=== PATIENT | male | born 1970 | race Caucasian/White ===

== ENCOUNTER → 2024-02-22 | Outpatient (CLI) | payer MEDICARE, MEDICAID, SELFPAY ==
[2024-02-22 14:11] LABS: Basophils % (Auto) 1 % (0-2.5); Eosinophils # (Auto) 1.1 Thou/mm3 (0.0-0.5); Eosinophils % (Auto) 23 % (0-10); Hematocrit 33.5 % (41.0-53.0); Hemoglobin 10.7 g/dL (13.5-16.0); Immature Granulocytes % (Auto) 0 % (0-0); Immature Granulocytes Auto 0.01 Thou/mm3 (0.00-0.00); Lymphocytes % (Auto) 20 % (10-50); Mean Corpuscular HGB Conc 31.9 g/dl (31.0-37.0); Mean Corpuscular Hemoglobin 30.5 pg (25.0-35.0); Mean Corpuscular Volume 95 fL (80-100); Monocytes # (Auto) 0.3 Thou/mm3 (0.0-0.8); Monocytes % (Auto) 6 % (0-12); Neutrophils # (Auto) 2.5 Thou/mm3 (1.8-7.7); Neutrophils % (Auto) 51 % (37-80); Nucleated Red Blood Cell % 0 /100 WBC (0); Platelet Count 91 Thou/mm3 (140-440); RDW Standard Deviation 49.6 fL (35.1-43.9); Red Blood Count 3.51 Miln/mm3 (4.50-5.90); White Blood Count 4.8 Thou/mm3 (3.8-10.6)
[2024-02-22 14:27] LABS: Partial Thromboplastin Time 27.7 Seconds (22.0-36.0); Prothrombin Time 10.8 Seconds (9.0-12.2)
[2024-02-22 14:28] LABS: Blood Urea Nitrogen 9 mg/dL (9-23); Creatinine (Component) 1.9 mg/dL (0.6-1.3); eGFR 41 See Note
--- NOTE | 2024-02-22 15:26 | PC.NURSE ---
Spoke to Dr. Sevilla in regards to platelets being in the 90's. Per Dr. Sevilla patients platelets need to be above 150's. Patient will need to be rescheduled. Spoke to scheduling and said they would let the patient know.
== END | disposition home or self-care (01) ==
LOC: SLAB 02-24 07:17
PROVIDERS: Radiology Diagnostic Radiology; PCP Family Medicine; Referring Provider Internal Medicine Hematology & Oncology; Visit Provider Internal Medicine Hematology & Oncology
DX: D41.02 Neoplasm of uncertain behavior of left kidney (principal); C78.00 Secondary malignant neoplasm of unspecified lung
CPT/HCPCS: 36415; 82565; 84520; 85025; 85610; 85730

== ENCOUNTER → 2024-04-07 | Outpatient (CLI) | payer MEDICARE, MEDICAID, SELFPAY ==
[2024-04-07 16:36] LABS: Basophils % (Auto) 0 % (0-2.5); Eosinophils % (Auto) 0 % (0-10); Hematocrit 37.5 % (41.0-53.0); Hemoglobin 12.3 g/dL (13.5-16.0); Immature Granulocytes % (Auto) 0 % (0-0); Immature Granulocytes Auto 0.03 Thou/mm3 (0.00-0.00); Lymphocytes # (Auto) 0.6 Thou/mm3 (1.0-4.8); Lymphocytes % (Auto) 5 % (10-50); Mean Corpuscular HGB Conc 32.8 g/dl (31.0-37.0); Mean Corpuscular Hemoglobin 30.1 pg (25.0-35.0); Mean Corpuscular Volume 92 fL (80-100); Monocytes # (Auto) 0.1 Thou/mm3 (0.0-0.8); Monocytes % (Auto) 1 % (0-12); Neutrophils # (Auto) 10.9 Thou/mm3 (1.8-7.7); Neutrophils % (Auto) 93 % (37-80); Nucleated Red Blood Cell % 0 /100 WBC (0); Platelet Count 152 Thou/mm3 (140-440); RDW Standard Deviation 53.6 fL (35.1-43.9); Red Blood Count 4.09 Miln/mm3 (4.50-5.90); White Blood Count 11.7 Thou/mm3 (3.8-10.6)
== END | disposition home or self-care (01) ==
PROVIDERS: PCP Family Medicine; Referring Provider Family Medicine; Visit Provider Family Medicine
DX: Z01.89 Encounter for other specified special examinations (principal)
CPT/HCPCS: 36415; 85025

== ENCOUNTER → 2024-05-29 | Outpatient (CLI) | payer MEDICARE, MEDICAID, SELFPAY ==
--- NOTE | 2024-05-29 08:30 | XR_ITS ---
Examination: CT chest, without intravenous contrast. CT abdomen, without intravenous contrast. CT pelvis, without intravenous contrast. 2-D sagittal and coronal reconstructions. 3-D reconstructions. Date and time of exam:May 29, 2024 [address] chest June 19, 2023 INDICATIONS: Diagnosis secondary malignant neoplasm of the unspecified lung, mediastinal lymphadenopathy, diagnosis skin cancer, hypermetabolic anterior solid left renal mass 5.[address] scan December 14, 2023 CTDI vol (mgy) 6.89 DLP (MGycm)543 Technique: Multiple CT images, 3.0 mm slice thickness, obtained chest, abdomen, pelvis, with the high-resolution 64 slice scanner.. Sagittal and coronal 2-D reconstructions are obtained. 3-D reconstructions Low dose protocols were performed. One or more of the following dose reduction techniques were used; automated exposure control, adjustment of the mA and/or KV according to patient size, use of iterative reconstruction technique. Findings: Again noted and stable mediastinal lymphadenopathy including tracheobronchial and aortopulmonary window 12 mm pulmonary nodule left upper lobe image 96 12 mm pulmonary nodule right upper lobe image 135 4 mm pulmonary nodule right lower lobe image 180 Loculated left pleural fluid No visualized liver or splenic lesion Absent gallbladder No pancreatic mass Anterior solid left renal mass 5.5 cm 4 mm right renal calculus Status post left nephrectomy with calculi in the lower pole left kidney Aorta normal size Numerous periaortic pericaval lymph nodes, the largest lymph node in the left lateral periaortic region 11 mm No bowel obstruction No pericecal inflammatory change Urinary bladder wall shows marked thickening up to 20 mm Prominent osteopenia Enlarged lymph node medial anterior left groin 21 mm IMPRESSION: Pulmonary nodules noncalcified consistent with pulmonary nodular metastatic disease Again noted mediastinal lymphadenopathy Loculated mild to moderate left pleural fluid 5.5 cm anterior solid left renal mass Pericaval periaortic lymphadenopathy 21 mm anterior left groin lymph node
== END | disposition home or self-care (01) ==
LOC: SIRX 08:07
PROVIDERS: PCP Family Medicine; Referring Provider Internal Medicine Hematology & Oncology; Visit Provider Internal Medicine Hematology & Oncology
DX: R91.8 Other nonspecific abnormal finding of lung field (principal); R59.0 Localized enlarged lymph nodes; N28.89 Other specified disorders of kidney and ureter; Z53.8 Procedure and treatment not carried out for other reasons
CPT/HCPCS: 71250; 74176

== ENCOUNTER 2024-06-28 07:44 | Outpatient (CLI) | payer MEDICARE, MEDICAID, SELFPAY ==
[2024-06-26 10:07] LABS: Basophils # (Auto) 0.1 Thou/mm3 (0.0-0.2); Basophils % (Auto) 1 % (0-2.5); Eosinophils # (Auto) 1.3 Thou/mm3 (0.0-0.5); Eosinophils % (Auto) 26 % (0-10); Hematocrit 31.5 % (41.0-53.0); Hemoglobin 9.9 g/dL (13.5-16.0); Immature Granulocytes % (Auto) 0 % (0-0); Immature Granulocytes Auto 0.01 Thou/mm3 (0.00-0.00); Lymphocytes # (Auto) 1.2 Thou/mm3 (1.0-4.8); Lymphocytes % (Auto) 24 % (10-50); Mean Corpuscular HGB Conc 31.4 g/dl (31.0-37.0); Mean Corpuscular Hemoglobin 29.9 pg (25.0-35.0); Mean Corpuscular Volume 95 fL (80-100); Monocytes # (Auto) 0.3 Thou/mm3 (0.0-0.8); Monocytes % (Auto) 7 % (0-12); Neutrophils # (Auto) 2.1 Thou/mm3 (1.8-7.7); Neutrophils % (Auto) 41 % (37-80); Nucleated Red Blood Cell % 0 /100 WBC (0); Platelet Count 140 Thou/mm3 (140-440); RDW Standard Deviation 49.2 fL (35.1-43.9); Red Blood Count 3.31 Miln/mm3 (4.50-5.90)
[2024-06-26 10:10] LABS: Partial Thromboplastin Time 27.4 Seconds (22.0-36.0)
[2024-06-26 15:25] VITALS: BMI 32.8
[2024-06-28] VITALS (15 sets, daily range): BP systolic 137–180; BP diastolic 62–143; PULSE 64–83; RESP 11–20; TEMP 36.8–37.1; O2SAT 92–100
--- NOTE | 2024-06-28 08:30 | XR_ITS ---
Exam: CT-guided left renal mass biopsy. INDICATION: Exophytic mass superior pole left kidney. Exam date:: 06/28/2024, 9:34 AM CTDI: 106 DLP 1883 PROCEDURE: After a discussion of risks and benefits informed consent was obtained. Patient was brought to the CT scanner and placed prone on the exam table. Preliminary noncontrast enhanced CT demonstrated an approximately 5 cm exophytic mass extending from the superior pole of the left kidney. This was targeted for biopsy. The overlying skin was cleaned and draped in normal sterile surgical fashion 10 cc 1% lidocaine was used for local anesthesia. Conscious sedation was begun with direct continuous nursing supervision. Using CT guidance an 18-gauge needle biopsy system was sequentially advanced into the targeted mass. Multiple 18-gauge core biopsy samples were obtained, placed in formalin and sent to pathology for analysis. The needle was withdrawn. Hemostasis was achieved. The access site was covered with a sterile dressing Postbiopsy CT was performed which demonstrated no evidence of acute hemorrhage or other acute complication. Patient tolerated procedure well and was transferred to the holding area for post procedural observation. IMPRESSION: Successful CT-guided left renal mass biopsy as above
--- NOTE | 2024-06-28 09:21 | PC.NURSE ---
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 Patient states he wants to talk to social media project manager staff from his facility before proceeding with biopsy. 0852 Patient spoke to Yasmine from social media project manager in his facility, states he is ready to proceed with kidney biopsy [address] Reis, patient agreed to kidney biopsy, consent has been obtained. will take patient to ct department for procedure.
[2024-06-28] MEDS: SODIUM CHLORIDE 0.9% 500 ML 500 ML 20 ML IV (09:35)
[2024-06-28] MEDS: MIDAZOLAM INJ 1 MG/ML VIAL 2 ML 2 MG IV (10:07)
[2024-06-28] MEDS: fentaNYL CIT INJ 50 mCg/ML AMP 2ML 150 MCG IVP (10:07)
[2024-06-28] MEDS: LIDOCAINE INJ PF 1% 30 ML VIAL 25 ML INFL (10:08)
--- NOTE | 2024-06-28 16:14 | PC.NURSE ---
1041 patient is awake, alert, breathing unlabored, s/p left kidney biopsy, dressing to left lower back dry with no bleeding. 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 1154 patient awake alert, breathing unlabored dressing dry with no bleeding, discharge instructions given to patient and Lisa at bedside, telephone discharge instructions also given to Tyrell RN at [facility] station . patient discharged home in personal wheelchair with all belongings.
== END 2024-06-28 11:54 | disposition home or self-care (01) ==
PROVIDERS: Radiology Diagnostic Radiology; PCP Internal Medicine Hematology & Oncology; Referring Provider Internal Medicine Hematology & Oncology; Visit Provider Internal Medicine Hematology & Oncology
DX: D41.02 Neoplasm of uncertain behavior of left kidney (principal); Z01.812 Encounter for preprocedural laboratory examination
CPT/HCPCS: 50200; 36415; 77012; 85025; 85610; 85730; 99152; 99153; J2250; J3010; J3490; J7040

== ENCOUNTER 2024-09-05 09:36 | Inpatient (IN) | payer MEDICARE, MEDICAID, SELFPAY ==
[2024-09-05] VITALS (27 sets, daily range): BP systolic 135–179; BP diastolic 65–121; PULSE 60–119; RESP 19–30; TEMP 36.1–38; O2SAT 95–100; BMI 26.7
--- NOTE | 2024-09-05 09:53 | EKG_ITS ---
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
--- NOTE | 2024-09-05 09:53 | XR_ITS ---
Examination: AP chest single view Technique one AP portable upright chest single view Date and time: September 05, 2024 1015 hours INDICATIONS: Chest pain shortness of breath today FINDINGS: Prominent CHF Moderate enlargement cardiac contour Prominent vascular congestion with bilateral pulmonary edema and layering left pleural effusion IMPRESSION: Prominent CHF
--- NOTE | 2024-09-05 10:01 | PD.EDADDENDU ---
Emergency Room Addendum Addendum Narrative: I went and saw this patient in room 9 with the resident at 0945 hrs. discussed the case put in orders with the resident this patient who is a dialysis patient who missed dialysis today and is fluid overloaded last dialysis was 3 days ago. Patient is hypoxic has Nitropaste in place by EMS and is comfortable on face max oxygen with O2 sats of 100% in no distress at this time. Medical workup is placed and pending as of 0950 hrs. MD Attestation MD Attestation See resident's chart for further documentation.
--- NOTE | 2024-09-05 10:01 | EDNOTE_ITS ---
ED General RME/HPI General Chief complaint: Shortness of Breath/Dyspnea Stated complaint: SOB Time Seen by Provider: 09/05/24 09:52 Arrival date/time: 09/05/24 09:36 RME / HPI RME / HPI narrative: This patient is a 54-year-old male with recently diagnosed RCC in june 2024, ESRD on dialysis //wed follows Dr Velazquez, type 2 diabetes, hyperlipidemia, liver cirrhosis, kidney stones history, chronic anemia, hyperlipidemia, hard of hearing, polyneuropathies, bipolar disorder, depression, CHF on home oxygen 2 L brought into the ED by EMS from [facility] presented with worsening shortness of breath associate with nausea and vomiting. Per EMS, patient was throwing up this morning and did not go for dialysis. He follows Dr Velazquez as outpatient. He was hypoxic and was placed on 6 L which increase his oxygen saturation from 88 to 92%. GCS of 15 and is AO x 3. He was tachycardic heart rate 86 bpm with blood pressure 156/86. EKG was performed however have multiple artifacts with sinus tachycardia with no acute ST-T changes. Patient was given nitroglycerin sublingual and Nitropaste half inch to reduce afterload. Patient reported having some chest pain discomfort and backache rated as 8 on 10 muscles with mild cough. He also has some epigastric discomfort nonradiating constant dull in nature. He denied having a bowel movement from last couple of days however passing gas. He makes little urine and denied any burning or dysuria. Patient is aware about his renal cell cancer and reported that he is following oncologist Dr. Angulo in [place] and is not feeling Dr Up anymore. He smokes cigarettes on last Wednesday. of note, He was recently diagnosed with clear renal cell carcinoma seen on pathology report from 06/28/2024. He was following Urologist Dr Jimenez as outpt. PMH: As above PSH:Appendectomy, cholecystectomy, left hernia repair, right great toe fracture repair, ear surgeries bilaterally SH:Current every day smoker, 5-6 cigarettes per day, denies current alcohol use, denies recreational drug use Allergies: Allergic to penicillin and morphine Home medications: Tamsulosin 0.4 mg, Lipitor 10 mg, Wayland 10/325 as needed, metoprolol tartrate 25 mg twice daily, angie-vit+, midodrine 10 mg twice daily, gabapentin 100 mg twice daily, cranberry, Angie-Mackenzie, MiraLAX, Trelegy, Tylenol, milk of mag, albuterol inhaler, Fleet enema, Dulcolax, ipratropium Vitals reviewed blood pressure 143/77, tachycardic heart rate 100, tachypneic respiratory 22. Afebrile and saturating 98% 6 LNC. Stat CBC, CMP, BNP, blood cultures, urine analysis, urine drug screen, lactic acid, lipase, magnesium, troponin I, VBG and EKG along with chest x-ray were ordered. Differential diagnoses include shortness of breath related to fluid overload due to missed dialysis, pneumonia, infection, electrolyte disturbance Para Machine Operator, Dr Velazquez was contacted as patient missed his dialysis today for dialysis session.She said she will inform dialysis nurse and wait for labs. 11:11 CBC showed hemoglobin 9.6, white count 4.6, platelet count 118. VBG showed pH 7.42, PCO2 43, PO2 54. Lactic acid was -0.6. EKG showed sinus rhythm with QTc [address]-T changes. Chest x-ray showed vascular congestion with moderate left-sided pleural effusion 11: 20 CHEM panel showed electrolytes sodium 139, potassium 4.3, chloride 102, bicarb 30. Kidney function showed BUN 19 and creatinine 3.8 baseline creatinine 1.9 from 02/22/2024. Blood glucose 171. Corrected calcium 8.4. Lactic acid 0.6. Magnesium 2.0. BNP 903. Troponin I was 0.030. Lipase was negative. 11: 36 mucker cofferdam was informed that patient has left-sided pleural effusion. Para Machine Operator was informed regarding patient's left-sided effusion and she stated that she wants to give a trial of removing 3.5 L of fluid today as per tolerated. 12: 00 Discussed case with hospitalist team regarding admission. Discussed patient's ED course, exam findings, labs and radiology results. Hospitalist team agreed to accept the patient for admission. complaint: Shortness of breath with bilateral lower extremity swelling Associated symptoms: nausea/vomiting and shortness of breath Related Data Home Medications ?Medication ?Instructions ?Recorded ?Confirmed gabapentin 100 mg capsule 100 mg PO BID neuropathy 04/0706/28/24 vitamin B complex-vitamin C-folic 1 tab PO QDAY 06/28/24 acid 0.8 mg tablet (Angie-Mackenzie) bisacodyl 10 mg rectal suppository 10 mg FL Q72H PRN C onstipation 12/24/19 06/28/24 (Dulcolax (bisacodyl)) insulin aspart U-100 100 unit/mL See Rx Instructions . Route 12/24/19 06/28/24 subcutaneous solution .COMPLEX PRN Hyperglycemia sodium phosphates 19 gram-7 118 ml FL Q72H PRN Constip ation 12/24/19 06/28/24 gram/118 mL enema (Fleet Enema) hydrocodone 10 mg-acetaminophen 1 tab PO Q4HR PRN Pain 05/09/20 06/28/24 325 mg tablet (Wayland) tamsulosin 0.4 mg capsule (Flomax) 0.4 mg PO HS prosta te 01/11/22 06/28/24 acetaminophen 325 mg tablet 650 mg PO Q6H PRN Pain/Fev er 02/24/22 06/28/24 sevelamer carbonate 800 mg tablet 1,600 mg PO TIDWM hy perphosphatemia 02/24/22 06/28/24 (Renvela) cranberry fruit 450 mg tablet 450 mg PO QDAY 06/21/23 06/28/24 (cranberry) glucagon 1 mg injection kit 1 mg subcut Q20MIN PRN Hyp oglycemia 06/21/23 06/28/24 ipratropium 0.5 mg-albuterol 3 mg 3 ml inhalation QID SOB/Wheeze 06/21/23 06/28/24 (2.5 mg base)/3 mL nebulization soln metoprolol tartrate 25 mg tablet 25 mg PO BID Hyperten william 06/21/23 06/28/24 polyethylene glycol 3350 17 17 g PO QAM constipation 0 06/21/23 06/28/24 gram/dose oral powder (Miralax) amino acids-protein hydrolysate 15 30 ea PO DAILY 06/1706/28/24 gram-100 kcal/30 mL oral liquid (Pro-Stat Sugar Free) atorvastatin 10 mg tablet (Lipitor) 10 mg PO QPM 06/2806/28/24 fluticasone fur. 200 mcg-umeclid 1 inh inhalation QDAY 06/28/24 06/28/24 62.5 mcg-vilant 25 mcg inhalat.powder (Trelegy Ellipta) Previous Rx's ?Medication ?Instructions ?Recorded albuterol sulfate 90 mcg/actuation 2 puff inhalation Q 6H PRN 12/25/19 aerosol inhaler shortness of breath or wheez ing #18 grams Allergies Allergy/AdvReac Type Severity Reaction Status Date / Time Penicillins Allergy Unknown Verified 06/26/24 15:25 morphine Allergy Verified 02/04/24 10:02 Review of Systems Review of Systems Systems Reviewed: All systems reviewed, normal except as documented Past Medical History Past Medical History NEUROLOGIC: Negative Neurological Disorders or Seizures CARDIAC: Positive Cardiac Disorders, Hypercholesterolemia, Congestive Heart Failure, Edema, Pericarditis, Hypertension and Varicose Veins RESPIRATORY: Positive Pneumonia and Smoking Exposure; Negative Chronic Obstructive Pulmonary Disease (COPD), Asthma, Tuberculosis or Sleep Apnea GASTROINTESTINAL: Positive Gastrointestinal Disorders, Cirrhosis, Gall Bladder Disease, Gastroesophageal Reflux Disease and Obesity; Negative Hepatitis GENITOURINARY: Positive Genitourinary Disorders, Kidney Stones, Dialysis and Benign Prostatic Hyperplasia; Negative Renal Disease MUSCULOSKELETAL: Positive Musculoskeletal Disorders, Arthritis and Gout ENT: Positive Deafness ENDOCRINE: Positive Endocrine Disorders, Diabetes Mellitus Type 1 and Diabetes Mellitus Type 2 HEMATOLOGIC: Positive Blood Disorders and Anemia; Negative Sickle Cell Disease PSYCHO/SOCIAL: Positive Bipolar Disorder and Depression OTHER HISTORY: Positive Hospitalization, Shingles, Falls and Chicken Pox; Negative Autoimmune Disease, Down Syndrome, Developmental Delay, Blood Transfusions, Blood Transfusion Reaction, Anesthesia Reactions, Organ Transplant, MRSA, VRSA, Vancomycin-Resistant Enterococci, Human Immunodeficiency Virus (HIV), Measles, Mumps, Rubella (Kinyarwanda Measles), Pertussis, Clostridium Difficile or Cancer Family History FAMILY HISTORY: Negative Family Psychiatric Problems, Family Respiratory Disorders, Family Cardiac Disorders, Family Gastrointestinal Problems, Family Cancer, Family Surgery or Family Anesthesia Reaction Surgical History SURGICAL: Positive Cardiac Surgery and Ear Surgery; Negative Pacemaker or Organ Transplant Social History SMOKING STATUS: Never smoker SECOND HAND EXPOSURE: No SUBSTANCE USE: does not use ED Exam Narrative Physical exam: GENERAL APPEARANCE: AxOx4, male appears tachypneic and mildly short of breath. Saturating well on 6 L nasal cannula. HEENT: NC, AT. MMM. EOMI, clear conjunctiva, oropharynx clear. Puffy eyelids. NECK: Supple without lymphadenopathy. No stiffness or restricted ROM. HEART: Sinus tachycardia with regular rhythm, normal S1/S2, no m/r/g LUNGS: Bilateral Rales heard on auscultation. ABDOMEN: Soft, epigastric tenderness, nondistended with good bowel sounds heard. BACK: No CVAT, no obvious deformity. EXTREMITIES: Bilateral 3+ pitting edema up to knees with chronic venous stasis. Left upper extremity AV fistula NEUROLOGICAL: Grossly nonfocal. Alert and oriented, moving all 4 extremities. CN not formally tested but appear grossly intact. Observed to ambulate with normal gait. Skin: Chronic venous stasis Psych: Appropriate mood and affect Course Course Course Narrative: This patient is a 54-year-old male with recently diagnosed with RCC in june 2024, ESRD on dialysis //wed follows Dr Velazquez, type 2 diabetes, hyperlipidemia, liver cirrhosis, kidney stones history, chronic anemia, hyperlipidemia, hard of hearing, polyneuropathies, bipolar disorder, depression, CHF on home oxygen 2 L brought into the ED by EMS from [facility] presented with worsening shortness of breath associate with nausea and vomiting. Per EMS, patient was throwing up this morning and did not go for dialysis. He follows Dr Velazquez as outpatient. He was hypoxic and was placed on 6 L which increase his oxygen saturation from 88 to 92%. GCS of 15 and is AO x 3. He was tachycardic heart rate 86 bpm with blood pressure 156/86. EKG was performed however have multiple artifacts with sinus tachycardia with no acute ST-T changes. Patient was given nitroglycerin sublingual and Nitropaste half inch to reduce afterload. No other symptoms reported. Vitals reviewed blood pressure 143/77, tachycardic heart rate 100, tachypneic respiratory 22. Afebrile and saturating 98% 6 LNC. Stat CBC, CMP, BNP, blood cultures, urine analysis, urine drug screen, lactic acid, lipase, magnesium, troponin I, VBG and EKG along with chest x-ray were ordered. Differential diagnoses include shortness of breath related to fluid overload due to missed dialysis, pneumonia, infection, electrolyte disturbance Para Machine Operator, Dr Velazquez was contacted as patient missed his dialysis today for dialysis session. 11:11 CBC showed hemoglobin 9.6, white count 4.6, platelet count 118. VBG showed pH 7.42, PCO2 43, PO2 54. Lactic acid was -0.6. EKG showed sinus rhythm with QTc [address]-T changes. Chest x-ray showed vascular congestion with moderate left-sided pleural effusion 11: 20 CHEM panel showed electrolytes sodium 139, potassium 4.3, chloride 102, bicarb 30. Kidney function showed BUN 19 and creatinine 3.8 baseline creatinine 1.9 from 02/22/2024. Blood glucose 171. Corrected calcium 8.4. Lactic acid 0.6. Magnesium 2.0. BNP 903. Troponin I was 0.030. Lipase was negative. 11: 36 mucker cofferdam was informed that patient has left-sided pleural effusion. Para Machine Operator was informed regarding patient's left-sided effusion and she stated that she wants to give a trial of removing 3.5 L of fluid today as per tolerated. 12: 00 Discussed case with hospitalist team regarding admission. Discussed patient's ED course, exam findings, labs and radiology results. Hospitalist team agreed to accept the patient for admission. Quality Measures none Orders Category Date Time Status COVID-19 Screening Questionnaire NOW Care 09/05/24 11:29 Active Decision to Admit X1 Care 09/05/24 11:29 Completed EKG (ED ONLY) *Do not use* NOW Care 09/05/24 09:53 Completed Hemodialysis Urgent Care 09/05/24 12:00 Active Consult to Nephrology Stat Cons 09/05/24 10:12 Ordered EKG (ED Only) Stat Exams 09/05/24 09:53 Draft XR chest 1V portable Stat Exams 09/05/24 09:53 Completed B-Type Natriuretic Peptide Stat Lab 09/05/24 10:12 Completed Blood Culture (Lab) Stat Lab 09/05/24 10:07 Received CBC Stat Lab 09/05/24 10:12 Completed Comprehensive Metabolic Panel Stat Lab 09/05/24 10:12 Completed Drug Screen,Urine Stat Lab 09/05/24 09:53 Ordered Lactate (Lactic Acid) Stat Lab 09/05/24 10:12 Completed Lipase Stat Lab 09/05/24 10:12 Completed Magnesium Stat Lab 09/05/24 10:12 Completed Troponin I Stat Lab 09/05/24 10:12 Completed Urinalysis Stat Lab 09/05/24 09:53 Ordered Urinalysis, C/S if Indicated Stat Lab 09/05/24 09:53 Ordered Venous Blood Gas Stat Lab 09/05/24 10:12 Completed Calcium Gluc/Ns 1000MG Ivpb [Calcium Gluc/Ns 1000mg Med 09/05/24 11:30 Discontinued Ivpb] 1,000 mg in 50 ml IV X1 Lidocaine 5% Patch Med 09/05/24 10:27 Discontinued 1 patch TOP X1 ONE Vital Signs Vital signs: Vital Signs Temperature 97.9 F 09/05/24 09:48 Pulse Rate 100 09/05/24 09:48 Respiratory Rate 22 H 09/05/24 09:48 Blood Pressure 143/77 H 09/05/24 09:48 Pulse Oximetry (%) 98 09/05/24 09:48 Discharge Plan Plan Patient Disposition: Admit Acute Care w/in Hospital Problem List Clinical Impression: Shortness of breath, Fluid overload MD Attestation MD Attestation I, Roosevelt Cruz MD, have reviewed the history, exam, and assessment of the patient. I have evaluated the patient independently and agree with the plan of care documented by [ ]. All diagnostic studies were reviewed and discussed. I confirm the diagnosis as documented by the Resident. I was present during the Medical Decision Making for this patient. The patient's plan of care was created between myself and the Resident and consistent with our discussion of the patient's case. MDM Narrative MDM hospital course (for use when minimal MDM required): This patient is a 54-year-old male with recently diagnosed RCC, ESRD on dialysis //wed follows Dr Velazquez, type 2 diabetes, hyperlipidemia, liver cirrhosis, kidney stones history, chronic anemia, hyperlipidemia, hard of hearing, polyneuropathies, bipolar disorder, depression, CHF on home oxygen 2 L brought into the ED by EMS from [facility] presented with worsening shortness of breath associate with nausea and vomiting. Per EMS, patient was throwing up this morning and did not go for dialysis. He follows Dr Velazquez as outpatient. He was hypoxic and was placed on 6 L which increase his oxygen saturation from 88 to 92%. GCS of 15 and is AO x 3. He was tachycardic heart rate 86 bpm with blood pressure 156/86. EKG was performed however have multiple artifacts with sinus tachycardia with no acute ST-T changes. Patient was given nitroglycerin sublingual and Nitropaste half inch to reduce afterload. No other symptoms reported. Vitals reviewed blood pressure 143/77, tachycardic heart rate 100, tachypneic respiratory 22. Afebrile and saturating 98% 6 LNC. Stat CBC, CMP, BNP, blood cultures, urine analysis, urine drug screen, lactic acid, lipase, magnesium, troponin I, VBG and EKG along with chest x-ray were ordered. Differential diagnoses include shortness of breath related to fluid overload due to missed dialysis, pneumonia, infection, electrolyte disturbance Para Machine Operator, Dr Velazquez was contacted as patient missed his dialysis today for dialysis session. 11:11 CBC showed hemoglobin 9.6, white count 4.6, platelet count 118. VBG showed pH 7.42, PCO2 43, PO2 54. Lactic acid was -0.6. EKG showed sinus rhythm with QTc [address]-T changes. Chest x-ray showed vascular congestion with moderate left-sided pleural effusion 11: 20 CHEM panel showed electrolytes sodium 139, potassium 4.3, chloride 102, bicarb 30. Kidney function showed BUN 19 and creatinine 3.8 baseline creatinine 1.9 from 02/22/2024. Blood glucose 171. Corrected calcium 8.4. Lactic acid 0.6. Magnesium 2.0. BNP 903. Troponin I was 0.030. Lipase was negative. 11: 36 mucker cofferdam was informed that patient has left-sided pleural effusion. Para Machine Operator was informed regarding patient's left-sided effusion and she stated that she wants to give a trial of removing 3.5 L of fluid today as per tolerat ed. 12: 00 Discussed case with hospitalist team regarding admission. Discussed patient's ED course, exam findings, labs and radiology results. Hospitalist team agreed to accept the patient for admission. Medication Administration(s) Medication Administration History Acetaminophen (Acetaminophen 325 Mg Tablet) 650 mg PO Q6H PRN PRN Reason: Fever >101.5 Stop: 10/05/24 12:07 Acetaminophen (Acetaminophen 325 Mg Tablet) 650 mg PO Q6H PRN PRN Reason: PAIN SCALE 1-3 (mild Stop: 10/05/24 12:07 Albuterol (Albuterol Inh 8 Gm) 2 puff INH Q6H PRN PRN Reason: SOB or wheezing Stop: 10/05/24 17:14 Atorvastatin Calcium (Atorvastatin Calcium 10 Mg Tablet) 10 mg PO HS SAMIA Stop: 10/05/24 20:59 Dextrose (Dextrose 50%-Water Inj 50 Ml Syringe) 25 ml IV Q15MIN PRN PRN Reason: BG 50-70 responsive npo pt Stop: 10/05/24 14:37 Dextrose (Dextrose 50%-Water Inj 50 Ml Syringe) 50 ml IV Q15MIN PRN PRN Reason: BG <50 OR BG <70 & pt unresponsive Stop: 10/05/24 14:37 Gabapentin (Gabapentin 100 Mg Capsule) 100 mg PO BID [facility] Stop: 10/05/24 12:29 Last Admin: 09/05/24 13:00 Dose: Not Given Documented By: JT Non-Admin Reason: Held for Dialysis Glucagon (Glucagon Inj 1 Mg Vial) 1 mg IM Q15MIN PRN PRN Reason: BG <70, and no IV access Heparin Sodium (Porcine) (Heparin Sod Inj 5000 Unit/Ml Vial) 5,000 unit SC Q12HR [facility] Stop: 09/19/24 20:59 Insulin Human Lispro (Insulin Lispro (Admelog) 1 Unit/0.01 Ml Unit) 0 unit SC AC [facility]; Protocol Stop: 10/05/24 16:59 Last Admin: 09/05/24 18:02 Dose: Not Given Documented By: AT Non-Admin Reason: Per Protocol Magnesium Hydroxide (Milk Of Magnesia Susp 30 Ml Udc) 30 ml PO QDAY PRN; Protocol PRN Reason: CONSTIPATION Stop: 10/05/24 12:07 Metoprolol Tartrate (Metoprolol Tartrate 25 Mg Tablet) 25 mg PO BID [facility] Stop: 10/05/24 20:59 Midodrine (Midodrine 5 Mg Tablet) 10 mg PO BID [facility] Stop: 10/05/24 12:14 Last Admin: 09/05/24 13:00 Dose: Not Given Documented By: JT Non-Admin Reason: Per Protocol Ondansetron HCl (Ondansetron Inj 2 Mg/Ml Inj 2 Ml) 4 mg IV Q6H PRN; Protocol PRN Reason: NAUSEA OR VOMITING Stop: 10/05/24 12:07 Last Admin: 09/05/24 17:59 Dose: 4 mg Documented By: AT Polyethylene Glycol (Polyethylene Glycol 17 Gm Packet) 17 gm PO QDAY PRN PRN Reason: constipation Stop: 10/05/24 14:44 Sevelamer Carbonate (Sevelamer Carbonate 800 Mg Tablet) 1,600 mg PO TIDWM [facility] Stop: 10/05/24 17:29 Last Admin: 09/05/24 18:02 Dose: Not Given Documented By: AT Non-Admin Reason: Other, see note Tamsulosin HCl (Tamsulosin Hcl 0.4 Mg Capsule) 0.4 mg PO HS SAMIA Stop: 10/06/24 20:59 Vitamin B Complex/Vit C/Folic Acid (Vit B12/Vit C/Fa (Nephrovite) Tablet) 1 tab PO QDAY SAMIA Stop: 10/06/24 08:59 Discontinued Medications Albuterol (Albuterol Inh 8 Gm) 2 puff INH Q2HR SAMIA Stop: 10/05/24 13:59 Last Admin: 09/05/24 17:07 Dose: Not Given Documented By: AA Non-Admin Reason: Not In Room Admin: 09/05/24 15:50 Dose: Not Given Documented By: AA Non-Admin Reason: Not In Room Albuterol (Albuterol Inh 8 Gm) 2 puff INH Q6H SAMIA Stop: 10/05/24 17:14 Last Admin: 09/05/24 17:48 Dose: Not Given Documented By: AT Non-Admin Reason: not done Epoetin Xavi (Epoetin Xavi Inj 1,000 Unit/0.05 Ml Unit) 10,000 unit SC X1 ONE Stop: 09/05/24 14:31 Last Admin: 09/05/24 16:52 Dose: 10,000 unit Documented By: ED Hydromorphone HCl (Hydromorphone Inj 2 Mg/Ml Vial) 0.5 mg IVP X1 ONE Stop: 09/05/24 13:00 Last Admin: 09/05/24 13:41 Dose: 0.5 mg Documented By: ED Calcium Gluconate/Sodium Chloride (Calcium Gluc/Ns 1000mg Ivpb) 1,000 mg in 50 mls @ 50 mls/hr IV X1 ONE Stop: 09/05/24 12:29 Last Admin: 09/05/24 13:00 Dose: Not Given Documented By: JT Non-Admin Reason: No IV access. Then to dialysis after IV start Lidocaine (Lidocaine 5% 1 Patch) 1 patch TOP X1 ONE Stop: 09/05/24 10:28 Last Admin: 09/05/24 11:24 Dose: Not Given Documented By: JT Non-Admin Reason: Patient Refused Tamsulosin HCl (Tamsulosin Hcl 0.4 Mg Capsule) 0.4 mg PO X1 ONE Stop: 09/05/24 12:14 Last Admin: 09/05/24 13:00 Dose: Not Given Documented By: SIL Non-Admin Reason: Held for Dialysis Diagnosis Diagnoses ruled out and/or further discussions: Differential diagnoses include shortness of breath related to fluid overload due to missed dialysis, pneumonia,left Pleural effusion, infection, electrolyte disturbance 11:11 CBC showed hemoglobin 9.6, white count 4.6, platelet count 118. VBG charlene wed pH 7.42, PCO2 43, PO2 54. Lactic acid was -0.6. EKG showed sinus rhythm with QTc [address]-T changes. Chest x-ray showed vascular congestion with moderate left-sided pleural effusion 11: 20 CHEM panel showed electrolytes sodium 139, potassium 4.3, chloride 102, bicarb 30. Kidney function showed BUN 19 and creatinine 3.8 baseline creatinine 1.9 from 02/22/2024. Blood glucose 171. Corrected calcium 8.4. Lactic acid 0.6. Magnesium 2.0. BNP 903. Troponin I was 0.030. Lipase was negative. 11: 36 mucker cofferdam was informed that patient has left-sided pleural effusion. Para Machine Operator was informed regarding patient's left-sided effusion and she stated that she wants to give a trial of removing 3.5 L of fluid today as per tolerated. 12: 00 Discussed case with hospitalist team regarding admission. Discussed patient's ED course, exam findings, labs and radiology results. Hospitalist team agreed to accept the patient for admission.
[2024-09-05 10:29] LABS: Base Excess, Venous 3 (-3-3); Lactate (Lactic Acid) 0.6 mMol/L (0.4-2.0); O2 Saturation, Venous 93 % (96-97); PCO2, Venous 43 mmHg (36-56); PO2, Venous 54 mmHg (15-58); pH, Venous 7.42 (7.33-7.66)
[2024-09-05 10:34] LABS: Basophils % (Auto) 1 % (0-2.5); Eosinophils # (Auto) 0.5 Thou/mm3 (0.0-0.5); Eosinophils % (Auto) 10 % (0-10); Hematocrit 30.7 % (41.0-53.0); Hemoglobin 9.6 g/dL (13.5-16.0); Immature Granulocytes % (Auto) 0 % (0-0); Immature Granulocytes Auto 0.02 Thou/mm3 (0.00-0.00); Lymphocytes # (Auto) 0.7 Thou/mm3 (1.0-4.8); Lymphocytes % (Auto) 16 % (10-50); Mean Corpuscular HGB Conc 31.3 g/dl (31.0-37.0); Mean Corpuscular Hemoglobin 30.7 pg (25.0-35.0); Mean Corpuscular Volume 98 fL (80-100); Monocytes # (Auto) 0.4 Thou/mm3 (0.0-0.8); Monocytes % (Auto) 9 % (0-12); Neutrophils % (Auto) 64 % (37-80); Nucleated Red Blood Cell % 0 /100 WBC (0); Platelet Count 118 Thou/mm3 (140-440); RDW Standard Deviation 51.1 fL (35.1-43.9); Red Blood Count 3.13 Miln/mm3 (4.50-5.90); White Blood Count 4.6 Thou/mm3 (3.8-10.6)
[2024-09-05 11:04] LABS: Alanine Aminotransferase 8 U/L (10-49); Albumin, Serum 3.5 gm/dL (3.5-5.0); Albumin/Globulin Ratio 1.3 (1.2-2.2); Alkaline Phosphatase 69 U/L (46-116); Anion Gap 7 (7-16); Aspartate Amino Transferase 12 U/L (0-34); BUN/Creatinine Ratio 5 Ratio (12-20); Bilirubin,Total 0.3 mg/dL (0.3-1.2); Blood Urea Nitrogen 19 mg/dL (9-23); Calcium (Corrected) 8.4 mg/dL (8.5-10.1); Carbon Dioxide 30.1 mMol/L (20.0-31.0); Chloride 102 mMol/L (98-107); Creatinine (Component) 3.8 mg/dL (0.6-1.3); Estimated Creatinine Clearance 18.2 mL/min (>60); Globulin 2.8 gm/dL (2.3-3.5); Glucose 171 mg/dL (74-106); Lipase 20 U/L (12-53); Osmolality,Calculated 283 (275-295); Potassium 4.3 mMol/L (3.4-5.1); Sodium 139 mMol/L (136-145); Total Protein 6.3 gm/dL (5.7-8.2); eGFR 18 See Note
[2024-09-05 11:14] LABS: B-Type Natriuretic Peptide 903 pg/mL (0-100)
--- NOTE | 2024-09-05 12:19 | ECHO_ITS ---
Transthoracic Echo Report Ht (in): 64 Wt (lb): 156 Exam Location: Echo Lab Status: Inpatient Personnel Specialist: Naomy Power Indications: Procedure Performed: BP: 133 / 56 HR: 85 Technical Quality: Technically difficult study MEASUREMENTS (Male / Female) Normal Values 2D ECHO LV Diastolic Diameter PLAX 4.1 cm 4.2 - 5.9 / 3.9 - 5.3 cm LV Systolic Diameter PLAX 2.6 cm IVS Diastolic Thickness 1.1 cm 0.6 - 1.0 / 0.6 - 0.9 cm LVPW Diastolic Thickness 1.2 cm 0.6 - 1.0 / 0.6 - 0.9 cm LV Relative Wall Thickness 0.6 LVOT Diameter 1.7 cm M-MODE Aortic Root Diameter MM 2.9 cm LA Systolic Diameter MM 3.2 cm LA Ao Ratio MM 1.1 AV Cusp Separation MM 1.8 cm DOPPLER AV Peak Velocity 155.0 cm/s AV Peak Gradient 9.6 mmHg AV Mean Gradient 5.0 mmHg AV Velocity Time Integral 35.0 cm LVOT Peak Velocity 143.0 cm/s LVOT Peak Gradient 8.2 mmHg LVOT Velocity Time Integral 31.6 cm LVOT Cardiac Index 3379.5 cm?/min?m? AV Area Cont Eq vti 2.0 cm? AV Area Cont Eq pk 2.1 cm? MV Area PHT 4.2 cm? Mitral E Point Velocity 121.0 cm/s Mitral A Point Velocity 117.0 cm/s Mitral E to A Ratio 1.0 LV E' Lateral Velocity 8.4 cm/s Mitral E to LV E' Lateral Ratio 14.4 LV E' Septal Velocity 6.7 cm/s Mitral E to LV E' Septal Ratio 18.0 PV Peak Velocity 144.0 cm/s PV Peak Gradient 8.3 mmHg FINDINGS Left Ventricle Normal left ventricular size, systolic function with no obvious regional wall motion abnormalities. Mild LVH. The ejection fraction is visually estimated at 55-60 %. Right Ventricle The right ventricle is normal in size. The right ventricular systolic function is mildly decreased. Left Atrium The left atrium is normal by two-dimensional, color flow and Doppler imaging with no structural abnormalities, no thrombus formation present. Right Atrium The right atrium is normal by two-dimensional imaging, color flow and Doppler imaging with no structural abnormalities, no thrombus formation present. Atrial Septum The interatrial septum appears normal with no evidence of a shunt. Aorta The aorta is normal by two-dimensional, color flow and Doppler interrogation. Mitral Valve Mild thickening of the mitral valve leaflets. Aortic Valve The aortic valve is not well visualized, but with normal color flow and Doppler interrogation. Tricuspid Valve The tricuspid valve is normal by two-dimensional, color flow and Doppler interrogation. There is trace to mild tricuspid valve regurgitation. Pulmonic Valve The pulmonic valve is not well visualized. There is no significant pulmonic valve regurgitation. Vessels The pulmonary artery appears normal. The inferior vena cava pulmonary and hepatic veins appear normal. Pericardium The pericardium is normal by two-dimensional imaging. There is no significant pericardial effusion. CONCLUSIONS Indication: CHF Normal LV size and function. Mild LVH. Grade I diastolic dysfunction. Estimated EF 60-65% Normal RV size and function. Trace TR. RVSP not measured because of insufficient TR. Mild MAC. Trace MR, Mild AV sclerosis wthout stenosis. AV not well visualized. There is trival pericardial effusion. No evidence of tamponade. Ricardo Bangura (Electronically Signed) Final Date: 07 Sep 2024 00:47
[2024-09-05] MEDS: HYDROmorphone INJ 2 MG/ML VIAL 0.5 MG IVP (13:41)
--- NOTE | 2024-09-05 13:45 | ESCONSULT_ITS ---
HPI Data of Consult Consult date: 09/05/24 Requesting Physician: Pedro Luis Douglass DO Admitting Provider: Pedro Luis Douglass DO Attending Provider: Pedro Luis Douglass DO Primary Care Provider: Bear Mendieta MD Consult Narrative Reason for consult: ESRD on dialysis History of present illness: 54 y/o M with PMHx significant for recently diagnosed RCC in June 2024, ESRD on dialysis //wed, type 2 diabetes, hyperlipidemia, liver cirrhosis, kidney stones history, chronic anemia, hyperlipidemia, hard of hearing, polyneuropathies, bipolar disorder, depression, CHF on home oxygen 2 L brought into the ED by EMS from [facility] with worsening shortness of breath associated with nausea and vomiting. Per EMS, patient was throwing up this morning and did not go for dialysis. He was hypoxic and was placed on 6 L which increase his oxygen saturation from 88 to 92%. Patient states he has been feeling sick since his last dialysis session on Wednesday, with nausea, vomiting, and worsening shortness of breath, is able to tolerate limited p.o. intake. Patient also notes associated abdominal pain, dull nonradiating, localized to epigastric/left upper quadrant. Patient states he is not constipated for several days but is passing gas. He was tachycardic heart rate 86 bpm with blood pressure 156/86. EKG was performed however have multiple artifacts with sinus tachycardia with no acute ST-T changes. Patient was given nitroglycerin sublingual and Nitropaste half inch to reduce afterload. Nephrology is consulted for management patient's dialysis. Patient seen and examined at bedside, appears to be in distress, on oxy mask. Patient complains of nausea and shortness of breath. Patient noticeably anasarcic, will receive dialysis with goal 3.5 L fluid removal. WBC 4.6, hemoglobin 9.6, sodium 139, potassium 4.3, bicarb 30.1, BUN 19, creatinine 3.8, EGFR 18. May require additional dialysis if patient appears to remain fluid overloaded. cc:: cc: Pedro Luis Douglass DO Review of Systems Review of Systems Systems Reviewed: All systems reviewed, normal except as documented Exam Vital Signs Temp Pulse Resp BP Pulse Ox O2 Del Method O2 Flow Rate 97.8 F 61 23 H 160/81 H 100 Oxy Mask 10 09/05/24 13:12 09/05/24 13:32 09/05/24 13:12 09/05/24 13:32 09/05/24 13:12 09/05/24 12:56 09/05/24 13:12 Narrative Exam PE: Gen: Well-developed and well-nourished. Mildly distressed. Notable anasarca, facial edema. HEENT: NCAT, PERRLA, EOMI, MMM, anicteric conjunctivae. CVS: normal S1 and S2. RRR. No M/R/G. Resp: CTA B/L. No rhonchi, rales, wheezing. Crackles in all lung gonzalez. Abd: soft, non-distended. Left upper quadrant and epigastric tenderness. MSK: Good ROM in BUE & BLE. No rash. Pitting edema all extremities. Neuro: CN II-XII grossly intact. Strength 5/5 in BUE & BLE. Alert and oriented x3. Psych: appropriate mood and affect. Results Labs 09/06/24 04:52 09/05/24 18:32 Labs: Short CBC 09/05/24 Range/Units 10:12 WBC 4.6 (3.8-10.6) Thou/mm3 Hgb 9.6 L (13.5-16.0) g/dL Hct 30.7 L (41.0-53.0) % Plt Count 118 L (140-440) Thou/mm3 BMP 09/05/24 10:12 Sodium 139 Potassium 4.3 Chloride 102 Carbon Dioxide 30.1 BUN 19 Creatinine 3.8 H Glucose 171 H Calcium 8.0 L Cardiac Enzymes 09/05/24 Range/Units 10:12 Troponin I 0.030 (0.0-0.045) ng/mL Liver Function 09/05/24 Range/Units 10:12 Total Bilirubin 0.3 (0.3-1.2) mg/dL AST 12 (0-34) U/L ALT 8 L (10-49) U/L Alkaline Phosphatase 69 (46-116) U/L Albumin 3.5 (3.5-5.0) gm/dL ABG Interpretation ABG results: 09/05/24 10:12 VBG pH 7.42 VBG pCO2 43 VBG pO2 54 VBG Base Excess 3 Quality Measures Quality Measures VTE prophylaxis Medications Home Medications and Allergies Home Medications ?Medication ?Instructions ?Recorded ?Confirmed ?Type gabapentin 100 mg capsule 100 mg PO BID neuropathy 04/0709/05/24 History vitamin B complex-vitamin C-folic 1 tab PO QDAY 09/05/24 History acid 0.8 mg tablet (Vanita-Mackenzie) bisacodyl 10 mg rectal suppository 10 mg [place] Q72H PRN C onstipation 12/24/19 09/05/24 History (Dulcolax (bisacodyl)) insulin aspart U-100 100 unit/mL See Rx Instructions . Route 12/24/19 09/05/24 History subcutaneous solution .COMPLEX PRN Hyperglycemia sodium phosphates 19 gram-7 118 ml [place] Q72H PRN Constip ation 12/24/19 09/05/24 History gram/118 mL enema (Fleet Enema) hydrocodone 10 mg-acetaminophen 1 tab PO Q4HR PRN Pain 05/09/20 09/05/24 History 325 mg tablet ([place]) tamsulosin 0.4 mg capsule (Flomax) 0.4 mg PO HS prosta te 01/11/22 09/05/24 History acetaminophen 325 mg tablet 650 mg PO Q6H PRN Pain/Fev er 02/24/22 09/05/24 History sevelamer carbonate 800 mg tablet 1,600 mg PO TIDWM hy perphosphatemia 02/24/22 09/05/24 History (Renvela) cranberry fruit 450 mg tablet 450 mg PO QDAY 06/21/23 09/05/24 History (cranberry) glucagon 1 mg injection kit 1 mg subcut Q20MIN PRN Hyp oglycemia 06/21/23 09/05/24 History ipratropium 0.5 mg-albuterol 3 mg 3 ml inhalation QID PRN SOB/Wheeze 06/21/23 09/05/24 History (2.5 mg base)/3 mL nebulization soln metoprolol tartrate 25 mg tablet 25 mg PO BID Hyperten william 06/21/23 09/05/24 History polyethylene glycol 3350 17 17 g PO QAM constipation 0 06/21/23 09/05/24 History gram/dose oral powder (Miralax) amino acids-protein hydrolysate 15 30 ea PO DAILY 06/1706/28/24 History gram-100 kcal/30 mL oral liquid (Pro-Stat Sugar Free) atorvastatin 10 mg tablet (Lipitor) 10 mg PO QPM 06/2809/05/24 History fluticasone fur. 200 mcg-umeclid 1 inh inhalation QDAY 06/28/24 09/05/24 History 62.5 mcg-vilant 25 mcg inhalat.powder (Trelegy Ellipta) Allergies Allergy/AdvReac Type Severity Reaction Status Date / Time Penicillins Allergy Unknown Verified 06/26/24 15: morphine Allergy Verified 02/04/24 10:02 Visit Medications Acetaminophen (Acetaminophen 325 Mg Tablet) 650 mg PO Q6H PRN PRN Reason: Fever >101.5 Stop: 10/05/24 12:07 Acetaminophen (Acetaminophen 325 Mg Tablet) 650 mg PO Q6H PRN PRN Reason: PAIN SCALE 1-3 (mild Stop: 10/05/24 12:07 Albuterol (Albuterol Inh 8 Gm) 2 puff INH Q2HR SAMIA Stop: 10/05/24 13:59 Atorvastatin Calcium (Atorvastatin Calcium 10 Mg Tablet) 10 mg PO HS SAMIA Stop: 10/05/24 20:59 Gabapentin (Gabapentin 100 Mg Capsule) 100 mg PO BID SAMIA Stop: 10/05/24 12:29 Heparin Sodium (Porcine) (Heparin Sod Inj 5000 Unit/Ml Vial) 5,000 unit SC Q12HR SAMIA Stop: 09/19/24 20:59 Magnesium Hydroxide (Milk Of Magnesia Susp 30 Ml Udc) 30 ml PO QDAY PRN; Protocol PRN Reason: CONSTIPATION Stop: 10/05/24 12:07 Metoprolol Tartrate (Metoprolol Tartrate 25 Mg Tablet) 25 mg PO BID SAMIA Stop: 10/05/24 20:59 Midodrine (Midodrine 5 Mg Tablet) 10 mg PO BID SAMIA Stop: 10/05/24 12:14 Ondansetron HCl (Ondansetron Inj 2 Mg/Ml Inj 2 Ml) 4 mg IV Q6H PRN; Protocol PRN Reason: NAUSEA OR VOMITING Stop: 10/05/24 12:07 Discontinued Medications Hydromorphone HCl (Hydromorphone Inj 2 Mg/Ml Vial) 0.5 mg IVP X1 ONE Stop: 09/05/24 13:00 Last Admin: 09/05/24 13:41 Dose: 0.5 mg Calcium Gluconate/Sodium Chloride (Calcium Gluc/Ns 1000mg Ivpb) 1,000 mg in 50 mls @ 50 mls/hr IV X1 ONE Stop: 09/05/24 12:29 Lidocaine (Lidocaine 5% 1 Patch) 1 patch TOP X1 ONE Stop: 09/05/24 10:28 Last Admin: 09/05/24 11:24 Dose: Not Given Tamsulosin HCl (Tamsulosin Hcl 0.4 Mg Capsule) 0.4 mg PO X1 ONE Stop: 09/05/24 12:14 Assessment & Plan Plan 54 y/o M with PMHx significant for recently diagnosed RCC in June 2024, ESRD on dialysis //wed, type 2 diabetes, hyperlipidemia, liver cirrhosis, kidney stones history, chronic anemia, hyperlipidemia, hard of hearing, polyneuropathies, bipolar disorder, depression, CHF on home oxygen 2 L brought into the ED by EMS from [facility] with worsening shortness of breath associated with nausea and vomiting. Nephrology consulted for management of ESRD on dialysis. #ESRD on dialysis (Wednesday//Wednesday) Patient has history as stated. Patient is dialysis session this morning. Patient is extremely fluid overloaded on exam, anasarca, facial edema. - Hemodialysis today with goal of 3.5 L fluid removal - Possibly will require additional dialysis #Acute hypoxic respiratory failure #Cirrhosis #Anemia #Diabetes #CHF Management as per primary team Thank you for allowing us to participate in the care of this patient. Plan of care discussed with attending Dr. Velazquez. Ricardo Osborn MD PGY?1 Attending Provider Attestation/Addendum Patient seen and examined with resident physician Dr. Cuevas. Note reviewed, agree with findings and recommendations. Patient admitted with fluid overload. patient currently seen on dialysis. Tolerating dialysis without any problems. Hemodialysis for 3 hours, 2K, ultrafiltration 3-4 L, Epogen 6000, no heparin ordered. Plan of care discussed with the dialysis nurse. Please see dialysis flowsheet for further details. Thank you Dr. Douglass for allowing me to participate in the care of Mr. Arredondo
--- NOTE | 2024-09-05 14:37 | PD.RESHP ---
Documentation for date of: 09/05/24 HPI History of Present Illness History of present illness: HPI is limited as patient is poor historian is currently getting dialysis. Some history obtained from patient, most of history obtained from chart review. Boone is a 54 y/o male with PMHx of RCC in June 2024, ESRD on dialysis //Wed (Dr. Velazquez), insulin-dependent type 2 diabetes mellitus, hyperlipidemia, Cirrhosis, kidney stones history, chronic anemia, hard of hearing, polyneuropathies, bipolar disorder, depression, CHF (on home oxygen 2 L) who comes in for an evaluation of shortness of breath. Patient felt sick this morning and patient was vomiting and did not go for dialysis. Patient began to get short of breath while he was at [facility]. He started to worsen with his hypoxia and EMS was consulted. He says that he has felt short of breath like this before. He also says that he has a fistula. He also follows his oncologist, Dr. Angulo in [place]. He still currently feels a bit nauseous currently and is on dialysis right now. ED course: Patient brought to the ED with a blood pressure 143/77, heart rate of 100, tachypneic with a respiratory of 22, afebrile, saturating 98% on 6 L nasal cannula. He was worked up once found to have a white count of 4.6, hemoglobin of 9.6, platelets of 118, potassium 4.3, sodium 139, bicarb 30, anion gap of 7, BUN and creatinine of 18 and 3.8 respectively, glucose 171, lactate 0.6, calcium 8.4, magnesium 2.0, troponin negative x 1, BNP 903. VBG pH was done and showed 7.42, pCO2 of 43, PO2 of 54. Patient was given nitroglycerin sublingual and Nitropaste as he had felt some chest discomfort in addition to hydromorphone 0.5 mg x 1. PMH: As above PSH:Appendectomy, cholecystectomy, left hernia repair, right great toe fracture repair, ear surgeries bilaterally SH:Current every day smoker, 5-6 cigarettes per day, denies current alcohol use, denies recreational drug use Allergies: Allergic to penicillin and morphine Home medications: Tamsulosin 0.4 mg, Lipitor 10 mg, [place] 10/325 as needed, metoprolol tartrate 25 mg twice daily, angie-vit+, midodrine 10 mg twice daily, gabapentin 100 mg twice daily, cranberry, Angie-Mackenzie, MiraLAX, Trelegy, Tylenol, milk of mag, albuterol inhaler, Fleet enema, Dulcolax, ipratropium Family history: Limited Social history: Current smoker, did not comment on EtOH use, did not comment on drug use. Said [place] was [place]. Currently lives at [facility] Review of Systems Review of Systems Narrative Review of Systems: Constitutional: No fever, chills, fatigue, weakness, weight loss HEENT: No eye pain, vision loss, ear pain, hearing loss, dysphagia, Cardiovascular: Positive chest pain, palpitations, edema, pain with walking Respiratory: No cough, positive shortness of breath, no wheezing GI: Positive nausea and vomiting, no diarrhea, abdominal pain, constipation, blood in stool, loss of appetite, heartburn Extremities: No presence of pitting edema MSK: No back pain, joint pain, joint swelling Neuro: No dizziness, numbness, weakness, headaches, seizures, tremors Psych: No anxiety, depression Exam Vital Signs Temp Pulse Resp BP Pulse Ox O2 Del Method O2 Flow Rate 97.8 F 88 23 H 159/95 H 100 Oxy Mask 10 09/05/24 13:12 09/05/24 14:30 09/05/24 13:12 09/05/24 14:30 09/05/24 13:12 09/05/24 12:56 09/05/24 13:12 Narrative Exam General: AAOx3, in mild distress, in dialysis chair, appears to be older than he is HEENT: Moist mucous membranes, conjunctiva clear, EOMI, PERRLA, Cardiovascular: S1, S2, radial pulses +2 bilat, RRR, possible ejection systolic murmur Pulmonary: On oxygen mask, crackles GI: No tenderness to light or deep palpitation, no guarding, rigidity, rebound tenderness or distension Extremities: Lower extremities dry, skin looks taut, some stasis bilaterally, trace edema Neuro: AAOx3, limited neuroexam as patient is in dialysis chair Psych: Able to slightly cooperate Results: Labs 09/06/24 04:52 09/06/24 07:30 Labs: Short CBC 09/05/24 Range/Units 10:12 WBC 4.6 (3.8-10.6) Thou/mm3 Hgb 9.6 L (13.5-16.0) g/dL Hct 30.7 L (41.0-53.0) % Plt Count 118 L (140-440) Thou/mm3 BMP 09/05/24 10:12 Sodium 139 Potassium 4.3 Chloride 102 Carbon Dioxide 30.1 BUN 19 Creatinine 3.8 H Glucose 171 H Calcium 8.0 L Cardiac Enzymes 09/05/24 Range/Units 10:12 Troponin I 0.030 (0.0-0.045) ng/mL Liver Function 09/05/24 Range/Units 10:12 Total Bilirubin 0.3 (0.3-1.2) mg/dL AST 12 (0-34) U/L ALT 8 L (10-49) U/L Alkaline Phosphatase 69 (46-116) U/L Albumin 3.5 (3.5-5.0) gm/dL ABG Interpretation ABG results: 09/05/24 10:12 VBG pH 7.42 VBG pCO2 43 VBG pO2 54 VBG Base Excess 3 Quality Measures Quality Measures VTE prophylaxis Medications Home Medications and Allergies Home Medications ?Medication ?Instructions ?Recorded ?Confirmed ?Type gabapentin 100 mg capsule 100 mg PO BID neuropathy 09/29/19 09/05/24 History vitamin B complex-vitamin C-folic 1 tab PO QDAY 09/29/19 09/05/24 History acid 0.8 mg tablet (Angie-Mackenzie) bisacodyl 10 mg rectal suppository 10 mg DC Q72H PRN Constipation 12/24/19 09/05/24 History (Dulcolax (bisacodyl)) insulin aspart U-100 100 unit/mL See Rx Instructions .Route 12/24/19 09/05/24 History subcutaneous solution .COMPLEX PRN Hyperglycemia sodium phosphates 19 gram-7 118 ml DC Q72H PRN Constipation 12/24/19 09/05/24 History gram/118 mL enema (Fleet Enema) hydrocodone 10 mg-acetaminophen 1 tab PO Q4HR PRN Pain 05/09/20 09/05/24 History 325 mg tablet ([place]) tamsulosin 0.4 mg capsule (Flomax) 0.4 mg PO HS prostate 01/11/22 09/05/24 History acetaminophen 325 mg tablet 650 mg PO Q6H PRN Pain/Fever 02/24/22 09/05/24 History sevelamer carbonate 800 mg tablet 1,600 mg PO TIDWM hyperphosphatemia 02/24/22 09/05/24 History (Renvela) cranberry fruit 450 mg tablet 450 mg PO QDAY 06/21/23 09/05/24 History (cranberry) glucagon 1 mg injection kit 1 mg subcut Q20MIN PRN Hypoglycemia 06/21/23 09/05/24 History ipratropium 0.5 mg-albuterol 3 mg 3 ml inhalation QID PRN SOB/Wheeze 06/21/23 09/05/24 History (2.5 mg base)/3 mL nebulization soln metoprolol tartrate 25 mg tablet 25 mg PO BID Hypertension 06/21/23 09/05/24 History polyethylene glycol 3350 17 17 g PO QAM constipation 06/21/23 09/05/24 History gram/dose oral powder (Miralax) amino acids-protein hydrolysate 15 30 ea PO DAILY 06/28/24 06/28/24 History gram-100 kcal/30 mL oral liquid (Pro-Stat Sugar Free) atorvastatin 10 mg tablet (Lipitor) 10 mg PO QPM 06/28/24 09/05/24 History fluticasone fur. 200 mcg-umeclid 1 inh inhalation QDAY 06/28/24 09/05/24 History 62.5 mcg-vilant 25 mcg inhalat.powder (Trelegy Ellipta) Allergies Allergy/AdvReac Type Severity Reaction Status Date / Time Penicillins Allergy Unknown Verified 06/26/24 15:25 morphine Allergy Verified 02/04/24 10:02 Visit Medications Acetaminophen (Acetaminophen 325 Mg Tablet) 650 mg PO Q6H PRN PRN Reason: Fever >101.5 Stop: 10/05/24 12:07 Acetaminophen (Acetaminophen 325 Mg Tablet) 650 mg PO Q6H PRN PRN Reason: PAIN SCALE 1-3 (mild Stop: 10/05/24 12:07 Albuterol (Albuterol Inh 8 Gm) 2 puff INH Q2HR SAMIA Stop: 10/05/24 13:59 Atorvastatin Calcium (Atorvastatin Calcium 10 Mg Tablet) 10 mg PO HS SAMIA Stop: 10/05/24 20:59 Gabapentin (Gabapentin 100 Mg Capsule) 100 mg PO BID SAMIA Stop: 10/05/24 12:29 Heparin Sodium (Porcine) (Heparin Sod Inj 5000 Unit/Ml Vial) 5,000 unit SC Q12HR SAMIA Stop: 09/19/24 20:59 Magnesium Hydroxide (Milk Of Magnesia Susp 30 Ml Udc) 30 ml PO QDAY PRN; Protocol PRN Reason: CONSTIPATION Stop: 10/05/24 12:07 Metoprolol Tartrate (Metoprolol Tartrate 25 Mg Tablet) 25 mg PO BID [facility] Stop: 10/05/24 20:59 Midodrine (Midodrine 5 Mg Tablet) 10 mg PO BID SAMIA Stop: 10/05/24 12:14 Ondansetron HCl (Ondansetron Inj 2 Mg/Ml Inj 2 Ml) 4 mg IV Q6H PRN; Protocol PRN Reason: NAUSEA OR VOMITING Stop: 10/05/24 12:07 Discontinued Medications Epoetin Xavi (Epoetin Xavi Inj 1,000 Unit/0.05 Ml Unit) 10,000 unit SC X1 ONE Stop: 09/05/24 14:31 Hydromorphone HCl (Hydromorphone Inj 2 Mg/Ml Vial) 0.5 mg IVP X1 ONE Stop: 09/05/24 13:00 Last Admin: 09/05/24 13:41 Dose: 0.5 mg Calcium Gluconate/Sodium Chloride (Calcium Gluc/Ns 1000mg Ivpb) 1,000 mg in 50 mls @ 50 mls/hr IV X1 ONE Stop: 09/05/24 12:29 Lidocaine (Lidocaine 5% 1 Patch) 1 patch TOP X1 ONE Stop: 09/05/24 10:28 Last Admin: 09/05/24 11:24 Dose: Not Given Tamsulosin HCl (Tamsulosin Hcl 0.4 Mg Capsule) 0.4 mg PO X1 ONE Stop: 09/05/24 12:14 Assessment & Plan Plan Assessment Boone is a 54 y/o male with PMHx of RCC in June 2024, ESRD on dialysis //Wed (Dr. Velazquez), insulin-dependent type 2 diabetes mellitus, hyperlipidemia, cirrhosis, kidney stones history, chronic anemia, hard of hearing, polyneuropathies, bipolar disorder, depression, CHF (on home oxygen 2 L) currently admitted for acute hypoxic respiratory failure secondary to fluid overload. #Respiratory Distress #Fluid overload X-ray shows prominent CHF, BNP ~900s, pt requirs 6 L of oxygen Previous echo in 2023 shows preserved ejection fraction 65 to 70%, grade 1 diastolic dysfunction Plan: ? Nephrology consulted, appreciate recs ? Hemodialysis today 3.5 L removal as the goal ? Wean down on oxygen as tolerated ? Follow-up echo #ESRD #History of renal cell carcinoma #History of previous pancreatic mass Patient has AV fistula Internal Audit Senior Manager is Dr. Velazquez Plan: ? Nephrology consulted, appreciate recs ? HD T// ? Will resume any medicines including chemotherapy if patient is on them on med rec ? Trend lytes #History of cirrhosis #History of portal hypertension Chronic and seen on previous imaging Plan: ? Coag panels, CMP ? Consider GI consult #Pleural effusion #Pulmonary nodules Moderate pleural effusion on the left side Pulmonary nodules in setting of metastatic renal cell carcinoma Plan: ? Consider thoracentesis after HD ? As above #History of BPH Chronic Plan: ? Resumed home Flomax 0.4 mg #Insulin-dependent type 2 diabetes Mellitus A1c of 8.0 in 05/2023 Plan: ? Sliding scale insulin ? Hypoglycemic protocol in place ? Blood sugar checks with meals ? Follow-up A1c #Hypertension #Hyperlipidemia Chronic Plan: ? Holding blood pressure medicines as blood pressures soft at this point ? Resumed home Lipitor 10 mg at bedtime ? Resumed home metoprolol tartrate 25 mg twice daily ? Follow-up lipid panel #Normocytic anemia Likely anemia of chronic disease, however will further workup Hemoglobin 9.6 Plan: ? Trend CBC ? Iron studies panel ? Peripheral blood smear ? Transfusion protocol hemoglobin below 7 ? Avoiding any NSAIDs #Health Maintenance Disposition: Telemetry DVT prophylaxis: Heparin GI prophylaxis: Not indicated at this time Diet: Carb low CODE STATUS: Full Patient seen and care discussed with my senior resident, Dr. Traore, and my attending physician, Dr. Evonne Wang, PGY-1 Attending Provider Attestation/Addendum I have discussed and was present for the essential components of the history, physical examination, diagnosis, and treatment plan with the resident. I agree with the patient's care as documented by the resident and amended herein by me. Keyshawn Douglass DO. Although this document has been carefully reviewed, there may still be some phonetic and other typographical errors. These errors are purely grammatical due to imperfections in the software program and should not be construed in any way to compromise the substance of the patient's medical care during this visit.
[2024-09-05] MEDS: EPOETIN ALFA INJ 1,000 UNIT/0.05 ML UNIT 10000 UNIT SC (16:52)
[2024-09-05] MEDS: ONDANSETRON INJ 2 MG/ML INJ 2 ML 4 MG IV (17:59)
--- NOTE | 2024-09-05 18:10 | XR_ITS ---
Examination: AP portable sitting chest single view TECHNIQUE: AP portable sitting chest single view Date and time: September 05, 2024 1832 hours Comparison September 05, 2024 INDICATION: Sepsis protocol FINDINGS: Moderate CHF Moderate enlargement cardiac contour with pulmonary vascular congestion and perihilar edema Pneumonia fairly diffusely in the left lung Mild right and moderate left pleural effusions Surgical clips in the soft tissues left arm IMPRESSION: Moderate CHF Diffuse left lung pneumonia
--- NOTE | 2024-09-05 18:10 | EKG_ITS ---
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
--- NOTE | 2024-09-05 18:14 | PD.RESEVENT ---
Documentation for date of: 09/05/24 Event Note Event Note: Rapid response was called at around 18:10 due to patient having tachcardia, 100.4 temp, and tachypnea. Sepsis alert was called and patient was started on IV Abx (ZOsyn and Vanco). Patient had gotten back from HD were he got 3.5 L taken out and had crackles on auscultation therefore did not do sepsis bolus at this time. BP was in the 170s, but due to concern for sepsis decided not to give antihypertensive medications. Patient was on Oxymask saturating in the high 90s on 10L. Patient also stated some back pain and chest pain. EKG, CBC, CMP,LA, procal, blood cultures, urine culture, and CXR were ordered. Case discussed with my attending Dr. Ever Mejia, PGY1
[2024-09-05] MEDS: KETOROLAC INJ 30 MG/ML VIAL IVP (18:35)
[2024-09-05] MEDS: VANCOMYCIN/D5W 1,250 MG IVPB 250 ML 120 MG IV (18:35)
[2024-09-05 18:48] LABS: Basophils % (Auto) 0 % (0-2.5); Eosinophils # (Auto) 0.3 Thou/mm3 (0.0-0.5); Eosinophils % (Auto) 4 % (0-10); Hematocrit 34.4 % (41.0-53.0); Hemoglobin 11.1 g/dL (13.5-16.0); Immature Granulocytes % (Auto) 0 % (0-0); Immature Granulocytes Auto 0.03 Thou/mm3 (0.00-0.00); Lymphocytes # (Auto) 0.5 Thou/mm3 (1.0-4.8); Lymphocytes % (Auto) 6 % (10-50); Mean Corpuscular HGB Conc 32.3 g/dl (31.0-37.0); Mean Corpuscular Volume 93 fL (80-100); Monocytes # (Auto) 0.4 Thou/mm3 (0.0-0.8); Monocytes % (Auto) 5 % (0-12); Neutrophils # (Auto) 6.7 Thou/mm3 (1.8-7.7); Neutrophils % (Auto) 84 % (37-80); Nucleated Red Blood Cell % 0 /100 WBC (0); Platelet Count 108 Thou/mm3 (140-440); RDW Standard Deviation 47.7 fL (35.1-43.9); White Blood Count 7.9 Thou/mm3 (3.8-10.6)
[2024-09-05 19:09] LABS: Alanine Aminotransferase 10 U/L (10-49); Albumin/Globulin Ratio 1.2 (1.2-2.2); Alkaline Phosphatase 75 U/L (46-116); Anion Gap 9 (7-16); Aspartate Amino Transferase 16 U/L (0-34); BUN/Creatinine Ratio 4 Ratio (12-20); Bilirubin,Total 0.5 mg/dL (0.3-1.2); Blood Urea Nitrogen 9 mg/dL (9-23); Calcium 8.7 mg/dL (8.3-10.6); Calcium (Corrected) 8.7 mg/dL (8.5-10.1); Carbon Dioxide 31.5 mMol/L (20.0-31.0); Chloride 96 mMol/L (98-107); Creatinine (Component) 2.2 mg/dL (0.6-1.3); Estimated Creatinine Clearance 31.4 mL/min (>60); Globulin 3.3 gm/dL (2.3-3.5); Glucose 134 mg/dL (74-106); Osmolality,Calculated 272 (275-295); Potassium 3.7 mMol/L (3.4-5.1); Procalcitonin 0.27 ng/ml (0.0-0.49); Sodium 136 mMol/L (136-145); Total Protein 7.3 gm/dL (5.7-8.2); eGFR 34 See Note
[2024-09-05] MEDS: PIPER/TAZO 3.375 GM PREMIX 3.375 GM/50 ML BAG IV (20:45)
[2024-09-05] MEDS: METOPROLOL TARTRATE 25 MG TABLET PO (20:47)
[2024-09-05] MEDS: GABAPENTIN 100 MG CAPSULE PO (20:47)
[2024-09-05] MEDS: MIDODRINE 5 MG TABLET 10 MG PO (20:47)
[2024-09-05] MEDS: ATORVASTATIN CALCIUM 10 MG TABLET PO (20:47)
[2024-09-05] MEDS: HEPARIN SOD INJ 5000 UNIT/ML VIAL SC (20:48)
[2024-09-05] MEDS: HYDROcodone/APAP 10/325 TAB PO (21:27)
[2024-09-05] MEDS: FAMOTIDINE INJ 10 MG/ML VIAL 2 ML 20 MG IVP (21:27)
[2024-09-05 23:36] LABS: Hepatitis A Antibody IgM Non Reactive (Non React); Hepatitis B Core Antibody IgM Non Reactive (Non React); Hepatitis B Surface Ab NonReact(Not Immune) (Immune); Hepatitis B Surface Antigen Non Reactive (Non React); Hepatitis C Antibody Non Reactive (Non React)
[2024-09-06] VITALS (23 sets, daily range): BP systolic 91–170; BP diastolic 41–79; PULSE 53–98; RESP 13–25; TEMP 36.1–37; O2SAT 94–100; BMI 25.6
[2024-09-06] MEDS: PIPER/TAZO 3.375 GM PREMIX 3.375 GM/50 ML BAG IV ×2 (05:12→20:16)
[2024-09-06 06:01] LABS: Basophils % (Auto) 0 % (0-2.5); Eosinophils # (Auto) 0.2 Thou/mm3 (0.0-0.5); Eosinophils % (Auto) 2 % (0-10); Hematocrit 33.4 % (41.0-53.0); Hemoglobin 10.7 g/dL (13.5-16.0); Immature Granulocytes % (Auto) 0 % (0-0); Immature Granulocytes Auto 0.03 Thou/mm3 (0.00-0.00); Immature Reticulocyte Fraction 19.8 % (2.3-13.4); Lymphocytes # (Auto) 0.7 Thou/mm3 (1.0-4.8); Lymphocytes % (Auto) 8 % (10-50); Mean Corpuscular Hemoglobin 30.3 pg (25.0-35.0); Mean Corpuscular Volume 95 fL (80-100); Monocytes # (Auto) 0.5 Thou/mm3 (0.0-0.8); Monocytes % (Auto) 6 % (0-12); Neutrophils # (Auto) 7.2 Thou/mm3 (1.8-7.7); Neutrophils % (Auto) 83 % (37-80); Nucleated Red Blood Cell % 0 /100 WBC (0); Platelet Count 108 Thou/mm3 (140-440); RDW Standard Deviation 49.6 fL (35.1-43.9); Red Blood Count 3.53 Miln/mm3 (4.50-5.90); Reticulocyte % (Auto) 2.1 % (0.5-1.5); Reticulocyte Absolute Auto 72.4 Biln/L (25.0-75.0); Reticulocyte Hgb Content 23.3 pg (28.0-35.0); White Blood Count 8.7 Thou/mm3 (3.8-10.6)
[2024-09-06 06:08] LABS: Glucose Estimated Average 111 mg/dL (80-131); Hemoglobin A1C 5.5 % Hgb (4.8-6.0)
[2024-09-06] MEDS: SEVELAMER CARBONATE 800 MG TABLET 1600 MG PO ×3 (07:50→17:22)
[2024-09-06] MEDS: FAMOTIDINE INJ 10 MG/ML VIAL 2 ML 20 MG IVP (08:27)
[2024-09-06] MEDS: HYDROcodone/APAP 10/325 TAB PO (08:27)
[2024-09-06] MEDS: GABAPENTIN 100 MG CAPSULE PO ×2 (08:27→20:15)
[2024-09-06 08:33] LABS: Ferritin 908 ng/mL (10.5-307.3); Iron 12 mcg/dL (65-175); Percent Iron Saturation 7 % (20-55); Total Iron Binding Capacity 157 mcg/dL (250-425); Unsaturated Iron Binding 145 (225-295)
[2024-09-06 08:35] LABS: Anion Gap 25 (7-16); BUN/Creatinine Ratio 5 Ratio (12-20); Blood Urea Nitrogen 12 mg/dL (9-23); Calcium 7.6 mg/dL (8.3-10.6); Carbon Dioxide 27.2 mMol/L (20.0-31.0); Cardiac Risk Estimate 1.7 RATIO (4.0-6.7); Chloride 88 mMol/L (98-107); Cholesterol 93 mg/dL (132-200); Creatinine (Component) 2.6 mg/dL (0.6-1.3); Estimated Creatinine Clearance 26.6 mL/min (>60); Glucose 139 mg/dL (74-106); HDL Cholesterol 56 mg/dL (40-60); LDL Cholesterol,Calculated 21 mg/dL (0-130); Magnesium 1.8 mg/dL (1.6-2.6); Osmolality,Calculated 281 (275-295); Phosphorous 4.4 mg/dL (2.4-5.1); Potassium 3.8 mMol/L (3.4-5.1); Sodium 140 mMol/L (136-145); Thyroid Stimulating Hormone 1.34 uIU/mL (0.55-4.78); Triglycerides 81 mg/dL (30-150); Vancomycin,Random 16.7 mcg/mL; eGFR 28 See Note
--- NOTE | 2024-09-06 09:05 | PD.RESPRO ---
Documentation for date of: 09/06/24 Subjective Subjective Interval history: 54 y/o M with PMHx significant for recently diagnosed RCC in June 2024, ESRD on dialysis //wed, type 2 diabetes, hyperlipidemia, liver cirrhosis, kidney stones history, chronic anemia, hyperlipidemia, hard of hearing, polyneuropathies, bipolar disorder, depression, CHF on home oxygen 2 L brought into the ED by EMS from [facility] with worsening shortness of breath associated with nausea and vomiting. Per EMS, patient was throwing up this morning and did not go for dialysis. He was hypoxic and was placed on 6 L which increase his oxygen saturation from 88 to 92%. Patient states he has been feeling sick since his last dialysis session on Wednesday, with nausea, vomiting, and worsening shortness of breath, is able to tolerate limited p.o. intake. Patient also notes associated abdominal pain, dull nonradiating, localized to epigastric/left upper quadrant. Patient states he is not constipated for several days but is passing gas. He was tachycardic heart rate 86 bpm with blood pressure 156/86. EKG was performed however have multiple artifacts with sinus tachycardia with no acute ST-T changes. Patient was given nitroglycerin sublingual and Nitropaste half inch to reduce afterload. Nephrology is consulted for management patient's dialysis. Patient seen and examined at bedside, appears to be in distress, on oxy mask. Patient complains of nausea and shortness of breath. Patient noticeably anasarcic, will receive dialysis with goal 3.5 L fluid removal. WBC 4.6, hemoglobin 9.6, sodium 139, potassium 4.3, bicarb 30.1, BUN 19, creatinine 3.8, EGFR 18. May require additional dialysis if patient appears to remain fluid overloaded. 09/06/2024: Patient seen and examined at bedside, resting comfortably. Patient significantly proved from yesterday, decreased anasarca, facial edema has resolved. Patient still has notable fluid overload with anasarca and significant crackles on exam, patient remains short of breath. Patient had rapid response overnight for tachycardia, tachypnea, fever, sepsis alert was called and patient started on vancomycin and Zosyn. WBC 8.7, hemoglobin 10.7. Sodium 140, potassium 3.8, bicarb 27.2, BUN 12, creatinine 2.6, EGFR 28. Plan for additional dialysis today with less fluid removal, will reevaluate after. Exam Vital Signs Temp Pulse Resp BP Pulse Ox O2 Del Method O2 Flow Rate 97.3 F 80 18 125/67 97 Oxy Mask 6 09/06/24 08:39 09/06/24 09:01 09/06/24 08:39 09/06/24 09:01 09/06/24 08:39 09/06/24 08:00 09/06/24 08:39 Narrative Exam PE: Gen: Well-developed and well-nourished. Notable anasarca, improved. HEENT: NCAT, PERRLA, EOMI, MMM, anicteric conjunctivae. CVS: normal S1 and S2. RRR. No M/R/G. Resp: CTA B/L. No rhonchi, rales, wheezing. Crackles in all lung gonzalez, improved. Abd: soft, non-distended. Left upper quadrant and epigastric tenderness. MSK: Good ROM in BUE & BLE. No rash. Pitting edema all extremities. Neuro: CN II-XII grossly intact. Strength 5/5 in BUE & BLE. Alert and oriented x3. Psych: appropriate mood and affect. Objective Labs 09/06/24 04:52 09/06/24 07:30 Labs: Laboratory Results - last 24 hr 09/05/24 09/05/24 09/05/24 10:12 16:17 18:32 WBC 4.6 7.9 D RBC 3.13 L 3.70 L Hgb 9.6 L 11.1 L Hct 30.7 L 34.4 L MCV 98 93 MCH 30.7 30.0 MCHC 31.3 32.3 RDW Std Deviation 51.1 H 47.7 H Plt Count 118 L 108 L Neut % (Auto) 64 84 H Lymph % (Auto) 16 6 L [place] % (Auto) 9 5 Eos % (Auto) 10 4 Baso % (Auto) 1 0 Neut # (Auto) 3.0 6.7 Lymph # (Auto) 0.7 L 0.5 L [place] # (Auto) 0.4 0.4 Eos # (Auto) 0.5 0.3 Baso # (Auto) 0.0 0.0 Immature Gran # (Auto) 0.02 H 0.03 H Absolute Nucleated RBC 0.00 0.00 Immature Gran % 0 0 Nucleated RBC % 0 0 Retic Count (auto) Absolute Retic Immature Retic Fraction Retic Hgb Content CHr VBG pH 7.42 VBG pCO2 43 VBG pO2 54 VBG O2 Sat (Andrew) 93 L VBG Base Excess 3 Sodium 139 136 Potassium 4.3 3.7 D Chloride 102 96 L Carbon Dioxide 30.1 31.5 H Anion Gap 7 9 BUN 19 9 Creatinine 3.8 H 2.2 H D Estim Creat Clear Calc 18.2 L 31.4 L eGFR 18 L 34 L BUN/Creatinine Ratio 5 L 4 L Glucose [address] Glu mg/dL Hemoglobin A1c Calculated Osmolality 283 272 L Lactic Acid 0.6 1.0 Calcium 8.0 L 8.7 Corrected Calcium 8.4 L 8.7 Phosphorus Magnesium 2.0 Iron TIBC Iron Saturation Unsat Iron Binding Ferritin Total Bilirubin 0.3 0.5 AST 12 16 ALT 8 L 10 Alkaline Phosphatase 69 75 Troponin I 0.030 B-Natriuretic Peptide 903 H* Total Protein 6.3 7.3 Albumin 3.5 4.0 D Globulin 2.8 3.3 Albumin/Globulin Ratio 1.3 1.2 Triglycerides Cholesterol LDL Cholesterol, Calc HDL Cholesterol Cholesterol/HDL Ratio Lipase 20 Procalcitonin 0.27 TSH Random Vancomycin Hepatitis A IgM Ab Non Reactive Hep Bs Antigen Non Reactive Hep Bs Antibody NonReact(Not Immune) L Hep B Core IgM Ab Non Reactive Hepatitis C Antibody Non Reactive 09/06/24 09/06/24 04:52 07:30 WBC 8.7 RBC 3.53 L Hgb 10.7 L Hct 33.4 L MCV 95 MCH 30.3 MCHC 32.0 RDW Std Deviation 49.6 H Plt Count 108 L Neut % (Auto) 83 H Lymph % (Auto) 8 L [place] % (Auto) 6 Eos % (Auto) 2 Baso % (Auto) 0 Neut # (Auto) 7.2 Lymph # (Auto) 0.7 L [place] # (Auto) 0.5 Eos # (Auto) 0.2 Baso # (Auto) 0.0 Immature Gran # (Auto) 0.03 H Absolute Nucleated RBC 0.00 Immature Gran % 0 Nucleated RBC % 0 Retic Count (auto) 2.1 H Absolute Retic 72.4 Immature Retic Fraction 19.8 H Retic Hgb Content CHr 23.3 L VBG pH VBG pCO2 VBG pO2 VBG O2 Sat (Andrew) VBG Base Excess Sodium 140 Potassium 3.8 Chloride 88 L Carbon Dioxide 27.2 Anion Gap 25 H BUN 12 Creatinine 2.6 H Estim Creat Clear Calc 26.6 L eGFR 28 L BUN/Creatinine Ratio 5 L Glucose [address] Glu mg/dL 111 Hemoglobin A1c 5.5 Calculated Osmolality 281 Lactic Acid Calcium 7.6 L Corrected Calcium Phosphorus 4.4 Magnesium 1.8 Iron 12 L TIBC 157 L Iron Saturation 7 L Unsat Iron Binding 145 L Ferritin 908 H Total Bilirubin AST ALT Alkaline Phosphatase Troponin I B-Natriuretic Peptide Total Protein Albumin Globulin Albumin/Globulin Ratio Triglycerides 81 Cholesterol 93 L LDL Cholesterol, Calc 21 HDL Cholesterol 56 Cholesterol/HDL Ratio 1.7 L Lipase Procalcitonin TSH 1.34 Random Vancomycin 16.7 Hepatitis A IgM Ab Hep Bs Antigen Hep Bs Antibody Hep B Core IgM Ab Hepatitis C Antibody ABG Interpretation ABG results: 09/05/24 10:12 VBG pH 7.42 VBG pCO2 43 VBG pO2 54 VBG Base Excess 3 Quality Measures Quality Measures VTE prophylaxis Assessment & Plan Assessment Current Active Medications: Generic Name Dose Route Start Last Admin Trade Name Freq PRN Reason Stop Dose Admin Acetaminophen 650 mg 09/05/24 12:08 Acetaminophen 325 Mg Tablet PO 10/05/24 12:07 Q6H PRN Fever >101.5 Acetaminophen 650 mg 09/05/24 12:08 Acetaminophen 325 Mg Tablet PO 10/05/24 12:07 Q6H PRN PAIN SCALE 1-3 (mild Hydrocodone Bitart/Acetaminophen 1 tab 09/05/24 21:07 09/06/24 08:27 Hydrocodone/Apap 10/325 Tab PO 09/10/24 21:06 1 tab Q4HR PRN Administration PAIN SCALE 6-10(Mod-Sev Albuterol 2 puff 09/05/24 17:16 Albuterol Inh 8 Gm INH 10/05/24 17:14 Q6H PRN SOB or wheezing Atorvastatin Calcium 10 mg 09/05/24 21:00 09/05/24 20:47 Atorvastatin Calcium 10 Mg Tablet PO 10/05/24 20:59 10 mg HS SAMIA Administration Dextrose 25 ml 09/05/24 14:38 Dextrose 50%-Water Inj 50 Ml Syringe IV 10/05/24 14:37 Q15MIN PRN BG 50-70 responsive npo pt Dextrose 50 ml 09/05/24 14:38 Dextrose 50%-Water Inj 50 Ml Syringe IV 10/05/24 14:37 Q15MIN PRN BG <50 OR BG <70 & pt unresponsive Famotidine 20 mg 09/05/24 21:15 09/06/24 08:27 Famotidine Inj 10 Mg/Ml Vial 2 Ml IVP 10/05/24 21:14 20 mg DAILY SAMIA Administration Gabapentin 100 mg 09/05/24 12:30 09/06/24 08:27 Gabapentin 100 Mg Capsule PO 10/05/24 12:29 100 mg BID SAMIA Administration Glucagon 1 mg 09/05/24 14:38 Glucagon Inj 1 Mg Vial IM Q15MIN PRN BG <70, and no IV access Heparin Sodium (Porcine) 5,000 unit 09/05/24 21:00 09/05/24 20:48 Heparin Sod Inj 5000 Unit/Ml Vial SC 09/19/24 20:59 5,000 unit Q12HR SAMIA Administration Piperacillin/Tazobactam/Dextrose 3.375 gm in 50 mls @ 12.5 mls/hr 09/06/24 06:00 09/06/24 05:12 Zosyn IV 09/13/24 05:59 12.5 mls/hr Q12HR SMAIA Administration Insulin Human Lispro 0 unit 09/05/24 17:00 09/06/24 07:25 Insulin Lispro (Admelog) 1 Unit/0.01 Ml Unit SC 10/05/24 16:59 Not Given AC SAMIA Protocol Magnesium Hydroxide 30 ml 09/05/24 12:08 Milk Of Magnesia Susp 30 Ml Udc PO 10/05/24 12:07 QDAY PRN CONSTIPATION Protocol Metoprolol Tartrate 25 mg 09/05/24 21:00 09/05/24 20:47 Metoprolol Tartrate 25 Mg Tablet PO 10/05/24 20:59 25 mg BID SAMIA Administration Midodrine 10 mg 09/05/24 12:15 09/05/24 20:47 Midodrine 5 Mg Tablet PO 10/05/24 12:14 10 mg BID SAMIA Administration Ondansetron HCl 4 mg 09/05/24 12:08 09/05/24 17:59 Ondansetron Inj 2 Mg/Ml Inj 2 Ml IV 10/05/24 12:07 4 mg Q6H PRN Administration NAUSEA OR VOMITING Protocol Pharmacy Consult 1 each 09/05/24 18:12 Pharmacy Renal Dose Adjustment 1 Ea XX 10/05/24 18:11 PRN PRN CONSULT Pharmacy Consult 1 each 09/05/24 18:15 09/05/24 18:32 Vancomycin Pharmacy To Dose 1 Each Each IV 10/05/24 18:14 Not Given QDAY SAMIA Polyethylene Glycol 17 gm 09/05/24 14:42 Polyethylene Glycol 17 Gm Packet PO 10/05/24 14:44 QDAY PRN constipation Sevelamer Carbonate 1,600 mg 09/05/24 17:30 09/06/24 07:50 Sevelamer Carbonate 800 Mg Tablet PO 10/05/24 17:29 1,600 mg TIDWM SAMIA Administration Tamsulosin HCl 0.4 mg 09/06/24 21:00 Tamsulosin Hcl 0.4 Mg Capsule PO 10/06/24 20:59 HS SAMIA Vitamin B Complex/Vit C/Folic Acid 1 tab 09/06/24 09:00 Vit B12/Vit C/Fa (Nephrovite) Tablet PO 10/06/24 08:59 QDAY SAMIA Plan 54 y/o M with PMHx significant for recently diagnosed RCC in June 2024, ESRD on dialysis //wed, type 2 diabetes, hyperlipidemia, liver cirrhosis, kidney stones history, chronic anemia, hyperlipidemia, hard of hearing, polyneuropathies, bipolar disorder, depression, CHF on home oxygen 2 L brought into the ED by EMS from [facility] with worsening shortness of breath associated with nausea and vomiting. Nephrology consulted for management of ESRD on dialysis. #ESRD on dialysis (Wednesday//Wednesday) Patient has history as stated. Patient is dialysis session this morning. Patient is extremely fluid overloaded on exam, anasarca, facial edema. Patient received hemodialysis today with goal of 3.5 L fluid removal, notable improvement the following day. Patient is still fluid overloaded with respiratory distress, crackles on exam, anasarca. - Plan for additional dialysis session today - Avoid nephrotoxins - Renally dose meds #Acute hypoxic respiratory failure #Cirrhosis #Anemia #Diabetes #CHF Management as per primary team Thank you for allowing us to participate in the care of this patient. Plan of care discussed with attending Dr. Velazquez. Ricardo Osborn MD PGY?1 Attending Provider Attestation/Addendum Patient seen and examined with resident physician Dr. Cuevas. Note reviewed, agree with findings and recommendations. Patient admitted with fluid overload. patient currently seen on dialysis. Tolerating dialysis without any problems. Hemodialysis for 2.5 hours, sequential ultrafiltration 2-2.5 L, Epogen 6000, no heparin ordered. Plan of care discussed with the dialysis nurse. Please see dialysis flowsheet for further details.
[2024-09-06] MEDS: ALBUMIN HUMAN 25% IVPB 25 GM/100 ML BTL IV (09:36)
--- NOTE | 2024-09-06 10:10 | PC.SS ---
Follow up note: Pt is on IV antibiotic. Currently on 5 liters of O2. Pt is established with [facility].
[2024-09-06 10:54] LABS: Path Review Blood Smear Sent to Pathologist
--- NOTE | 2024-09-06 11:40 | PD.RESPRO ---
Documentation for date of: 09/06/24 Subjective Subjective Interval history: Patient examined at bedside today. No acute overnight events. Patient reports that his back hurts a little bit after dialysis. He says he usually has this chronic lower back pain and he is requesting Dilaudid for it. He says the [place] does not do anything for it. Denies any nausea or vomiting. He says that his shortness of breath is improving slightly. No other complaints at this time. Exam Vital Signs Temp Pulse Resp BP Pulse Ox O2 Del Method O2 Flow Rate 97.8 F 76 18 112/60 98 Oxy Mask 6 09/06/24 10:34 09/06/24 10:34 09/06/24 10:34 09/06/24 10:34 09/06/24 10:34 09/06/24 10:18 09/06/24 10:34 Narrative Exam General: AAOx3, in mild distress, in dialysis chair, appears to be older than he is HEENT: Moist mucous membranes, conjunctiva clear, EOMI, PERRLA, Cardiovascular: S1, S2, radial pulses +2 bilat, RRR, possible ejection systolic murmur Pulmonary: On oxygen mask, crackles GI: No tenderness to light or deep palpitation, no guarding, rigidity, rebound tenderness or distension Extremities: Lower extremities dry, skin looks taut, some stasis bilaterally, trace edema Neuro: AAOx3, limited neuroexam as patient is in dialysis chair Psych: Able to slightly cooperate Objective Labs 09/06/24 04:52 09/06/24 07:30 Labs: Laboratory Results - last 24 hr 09/05/24 09/05/24 09/06/24 16:17 18:32 04:52 WBC 7.9 D 8.7 RBC 3.70 L 3.53 L Hgb 11.1 L 10.7 L Hct 34.4 L 33.4 L MCV 93 95 MCH 30.0 30.3 MCHC 32.3 32.0 RDW Std Deviation 47.7 H 49.6 H Plt Count 108 L 108 L Neut % (Auto) 84 H 83 H Lymph % (Auto) 6 L 8 L [place] % (Auto) 5 6 Eos % (Auto) 4 2 Baso % (Auto) 0 0 Neut # (Auto) 6.7 7.2 Lymph # (Auto) 0.5 L 0.7 L [place] # (Auto) 0.4 0.5 Eos # (Auto) 0.3 0.2 Baso # (Auto) 0.0 0.0 Immature Gran # (Auto) 0.03 H 0.03 H Absolute Nucleated RBC 0.00 0.00 Immature Gran % 0 0 Nucleated RBC % 0 0 Smear Path Review Sent to Pathologist Retic Count (auto) Absolute Retic Immature Retic Fraction Retic Hgb Content CHr Sodium 136 Potassium 3.7 D Chloride 96 L Carbon Dioxide 31.5 H Anion Gap 9 BUN 9 Creatinine 2.2 H D Estim Creat Clear Calc 31.4 L eGFR 34 L BUN/Creatinine Ratio 4 L Glucose [address] Glu mg/dL Hemoglobin A1c Calculated Osmolality 272 L Lactic Acid 1.0 Calcium 8.7 Corrected Calcium 8.7 Phosphorus Magnesium Iron TIBC Iron Saturation Unsat Iron Binding Ferritin Total Bilirubin 0.5 AST 16 ALT 10 Alkaline Phosphatase 75 Total Protein 7.3 Albumin 4.0 D Globulin 3.3 Albumin/Globulin Ratio 1.2 Triglycerides Cholesterol LDL Cholesterol, Calc HDL Cholesterol Cholesterol/HDL Ratio Procalcitonin 0.27 TSH Random Vancomycin Hepatitis A IgM Ab Non Reactive Hep Bs Antigen Non Reactive Hep Bs Antibody NonReact(Not Immune) L Hep B Core IgM Ab Non Reactive Hepatitis C Antibody Non Reactive 09/06/24 09/06/24 04:52 07:30 WBC RBC Hgb Hct MCV MCH MCHC RDW Std Deviation Plt Count Neut % (Auto) Lymph % (Auto) [place] % (Auto) Eos % (Auto) Baso % (Auto) Neut # (Auto) Lymph # (Auto) [place] # (Auto) Eos # (Auto) Baso # (Auto) Immature Gran # (Auto) Absolute Nucleated RBC Immature Gran % Nucleated RBC % Smear Path Review Cancelled Retic Count (auto) 2.1 H Absolute Retic 72.4 Immature Retic Fraction 19.8 H Retic Hgb Content CHr 23.3 L Sodium 140 Potassium 3.8 Chloride 88 L Carbon Dioxide 27.2 Anion Gap 25 H BUN 12 Creatinine 2.6 H Estim Creat Clear Calc 26.6 L eGFR 28 L BUN/Creatinine Ratio 5 L Glucose [address] Glu mg/dL 111 Hemoglobin A1c 5.5 Calculated Osmolality 281 Lactic Acid Calcium 7.6 L Corrected Calcium Phosphorus 4.4 Magnesium 1.8 Iron 12 L TIBC 157 L Iron Saturation 7 L Unsat Iron Binding 145 L Ferritin 908 H Total Bilirubin AST ALT Alkaline Phosphatase Total Protein Albumin Globulin Albumin/Globulin Ratio Triglycerides 81 Cholesterol 93 L LDL Cholesterol, Calc 21 HDL Cholesterol 56 Cholesterol/HDL Ratio 1.7 L Procalcitonin TSH 1.34 Random Vancomycin 16.7 Hepatitis A IgM Ab Hep Bs Antigen Hep Bs Antibody Hep B Core IgM Ab Hepatitis C Antibody ABG Interpretation ABG results: 09/05/24 10:12 VBG pH 7.42 VBG pCO2 43 VBG pO2 54 VBG Base Excess 3 Quality Measures Quality Measures VTE prophylaxis Assessment & Plan Assessment Current Active Medications: Generic Name Dose Route Start Last Admin Trade Name Freq PRN Reason Stop Dose Admin Acetaminophen 650 mg 09/05/24 12:08 Acetaminophen 325 Mg Tablet PO 10/05/24 12:07 Q6H PRN Fever >101.5 Acetaminophen 650 mg 09/05/24 12:08 Acetaminophen 325 Mg Tablet PO 10/05/24 12:07 Q6H PRN PAIN SCALE 1-3 (mild Hydrocodone Bitart/Acetaminophen 1 tab 09/05/24 21:07 09/06/24 08:27 Hydrocodone/Apap 10/325 Tab PO 09/10/24 21:06 1 tab Q4HR PRN Administration PAIN SCALE 6-10(Mod-Sev Albuterol 2 puff 09/05/24 17:16 Albuterol Inh 8 Gm INH 10/05/24 17:14 Q6H PRN SOB or wheezing Atorvastatin Calcium 10 mg 09/05/24 21:00 09/05/24 20:47 Atorvastatin Calcium 10 Mg Tablet PO 10/05/24 20:59 10 mg HS SAMIA Administration Dextrose 25 ml 09/05/24 14:38 Dextrose 50%-Water Inj 50 Ml Syringe IV 10/05/24 14:37 Q15MIN PRN BG 50-70 responsive npo pt Dextrose 50 ml 09/05/24 14:38 Dextrose 50%-Water Inj 50 Ml Syringe IV 10/05/24 14:37 Q15MIN PRN BG <50 OR BG <70 & pt unresponsive Famotidine 20 mg 09/07/24 09:00 Famotidine 20 Mg Tablet PO 10/07/24 08:59 QDAY SAMIA Protocol Gabapentin 100 mg 09/05/24 12:30 09/06/24 08:27 Gabapentin 100 Mg Capsule PO 10/05/24 12:29 100 mg BID SAMIA Administration Glucagon 1 mg 09/05/24 14:38 Glucagon Inj 1 Mg Vial IM Q15MIN PRN BG <70, and no IV access Heparin Sodium (Porcine) 5,000 unit 09/05/24 21:00 09/06/24 09:20 Heparin Sod Inj 5000 Unit/Ml Vial SC 09/19/24 20:59 Not Given Q12HR SAMIA Piperacillin/Tazobactam/Dextrose 3.375 gm in 50 mls @ 12.5 mls/hr 09/06/24 06:00 09/06/24 05:12 Zosyn IV 09/13/24 05:59 12.5 mls/hr Q12HR SAMIA Administration Albumin Human 25 gm in 100 mls @ 100 mls/hr 09/06/24 09:31 09/06/24 09:36 Albuminar-25 Ivpb IV 09/09/24 09:30 100 mls/hr PRN PRN Administration DIALYSIS Insulin Human Lispro 0 unit 09/05/24 17:00 09/06/24 07:25 Insulin Lispro (Admelog) 1 Unit/0.01 Ml Unit SC 10/05/24 16:59 Not Given AC SAMIA Protocol Magnesium Hydroxide 30 ml 09/05/24 12:08 Milk Of Magnesia Susp 30 Ml Udc PO 10/05/24 12:07 QDAY PRN CONSTIPATION Protocol Metoprolol Tartrate 25 mg 09/05/24 21:00 09/06/24 09:20 Metoprolol Tartrate 25 Mg Tablet PO 10/05/24 20:59 Not Given BID SAMIA Midodrine 10 mg 09/05/24 12:15 09/06/24 09:20 Midodrine 5 Mg Tablet PO 10/05/24 12:14 Not Given BID [facility] Ondansetron HCl 4 mg 09/05/24 12:08 09/05/24 17:59 Ondansetron Inj 2 Mg/Ml Inj 2 Ml IV 10/05/24 12:07 4 mg Q6H PRN Administration NAUSEA OR VOMITING Protocol Pharmacy Consult 1 each 09/05/24 18:12 Pharmacy Renal Dose Adjustment 1 Ea XX 10/05/24 18:11 PRN PRN CONSULT Pharmacy Consult 1 each 09/05/24 18:15 09/06/24 09:21 Vancomycin Pharmacy To Dose 1 Each Each IV 10/05/24 18:14 Not Given QDAY SAMIA Polyethylene Glycol 17 gm 09/05/24 14:42 Polyethylene Glycol 17 Gm Packet PO 10/05/24 14:44 QDAY PRN constipation Sevelamer Carbonate 1,600 mg 09/05/24 17:30 09/06/24 07:50 Sevelamer Carbonate 800 Mg Tablet PO 10/05/24 17:29 1,600 mg TIDWM SAMIA Administration Tamsulosin HCl 0.4 mg 09/06/24 21:00 Tamsulosin Hcl 0.4 Mg Capsule PO 10/06/24 20:59 HS SAMIA Vitamin B Complex/Vit C/Folic Acid 1 tab 09/06/24 09:00 09/06/24 09:20 Vit B12/Vit C/Fa (Nephrovite) Tablet PO 10/06/24 08:59 Not Given QDAY SAMIA Plan Assessment Boone is a 54 y/o male with PMHx of RCC in June 2024, ESRD on dialysis //Wed (Dr. Velazquez), insulin-dependent type 2 diabetes mellitus, hyperlipidemia, cirrhosis, kidney stones history, chronic anemia, hard of hearing, polyneuropathies, bipolar disorder, depression, CHF (on home oxygen 2 L) currently admitted for acute hypoxic respiratory failure secondary to fluid overload. #Sepsis rule out #Community acquired pneumonia Infiltrate on left lobe seen on x-ray Patient was febrile and tachycardic, however no white count Plan: ? Zosyn 3.375 mg Q12H IV ? Follow-up blood cultures ? Follow-up MRSA screen ? Pharmacy to dose vancomycin ? Sputum culture #Respiratory Distress #Fluid overload X-ray shows prominent CHF, BNP ~900s, pt requirs 6 L of oxygen Previous echo in 2023 shows preserved ejection fraction 65 to 70%, grade 1 diastolic dysfunction Plan: ? Nephrology consulted, appreciate recs ? HD today ? Wean down on oxygen as tolerated ? Follow-up echo #ESRD #History of renal cell carcinoma #History of previous pancreatic mass Patient has AV fistula Manager Creative Services is Dr. Velazquez Creatinine 2.6 today Plan: ? Nephrology consulted, appreciate recs ? HD T// ? Will resume any medicines including chemotherapy if patient is on them on med rec ? Trend lytes ? Patient to get extra dialysis today #History of cirrhosis #History of portal hypertension Chronic and seen on previous imaging Plan: ? Coag panels, CMP ? Consider GI consult #Pleural effusion #Pulmonary nodules Moderate pleural effusion on the left side and R side Pulmonary nodules in setting of metastatic renal cell carcinoma Plan: ? Will hold off on thoracentesis at this time and treat with abx ? As above #History of BPH Chronic Plan: ? Resumed home Flomax 0.4 mg #Insulin-dependent type 2 diabetes Mellitus A1c of 5.5 Plan: ? Sliding scale insulin ? Hypoglycemic protocol in place ? Blood sugar checks with meals #Hypertension #Hyperlipidemia Chronic LDL 21, total 93 Plan: ? Holding blood pressure medicines as blood pressures soft at this point ? Continue home Lipitor 10 mg at bedtime ? Continue home metoprolol tartrate 25 mg twice daily #Normocytic anemia secondary to #Anemia of chronic disease Ferritin ~900 TIBC 150 Iron ~12 Likely related to underlying CKD and cancer Plan: ? Trend CBC ? F/u Peripheral blood smear ? Transfusion protocol hemoglobin below 7 ? Avoiding any NSAIDs #Health Maintenance Disposition: Telemetry DVT prophylaxis: Heparin GI prophylaxis: Pepcid Diet: Carb low CODE STATUS: Full Patient seen and care discussed with my senior resident, Dr. Traore, and my attending physician, Dr. Evonne Wang, PGY-1 Attending Provider Attestation/Addendum I have discussed and was present for the essential components of the history, physical examination, diagnosis, and treatment plan with the resident. I agree with the patient's care as documented by the resident and amended herein by me. Keyshawn Douglass DO. Patient seen and evaluated this AM. Apparently the patient did have a rapid response yesterday evening for tachycardia and fever as well as tachypnea, sepsis alert was called and the patient was started on Zosyn and vancomycin, additional blood cultures were taken. This was after hemodialysis yesterday. No fluids were given as the patient had crackles on auscultation and came in fluid overloaded. blood pressure slightly elevated 166/79. Patient was on oxy mask in the a.m. and dialysis this morning. Significant labs include chloride of 88, BUN 12, creatinine 2.6, high anion gap of 25, bicarb 27, iron panel low on iron, TIBC, iron saturation likely combination of anemia of CKD and chronic disease. CBC remarkable for stable hemoglobin of 10.7. A1c 5.5. Unclear source of infection, possible pneumonia with gram-negative organisms, will continue broad-spectrum antibiotics this time however will de-escalate after MRSA nares and blood cultures result. Echo is still pending, nephrology consulted, appreciate recommendations, will continue hemodialysis sessions. Will continue to monitor closely while he is here Although this document has been carefully reviewed, there may still be some phonetic and other typographical errors. These errors are purely grammatical due to imperfections in the software program and should not be construed in any way to compromise the substance of the patient's medical care during this visit.
[2024-09-06] MEDS: HYDROmorphone INJ 2 MG/ML VIAL 0.25 MG IVP (12:17)
--- NOTE | 2024-09-06 12:23 | PC.SS ---
SS met with pt and his dad to discuss d/c plan. Pt was little confused (had difficulty speaking with SS). SS asked pt who his medical decision maker if he is unable and pt was able to point and name his dad. Pt is on aoxy mask with 5 liters of O2. 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 SS spoke to Sharon from [facility] who confirmed patient's father, Joe Arredondo is patient's decision maker. Per Sharon, patient at baseline is alert and oriented. Pt uses a walker and wheelchair. Pt is established with [facility]. Patient's dialysis chair time is Wednesday, , and Wednesday at 5:30am and utilizes [facility]. Pt utilizes O2 at [facility] PRN, as needed. Pt will return to [facility] and will require transportation. DC Plan: Return to [facility] Next of Kin: Joe Arredondo, dad, phone# [phone] PCP: Dr. Mendieta Address: Correct on facesheet
--- NOTE | 2024-09-06 17:30 | PC.NURSE ---
PATIENT'S OXYGEN SATURATION 86% ON ROOM AIR AT REST, PATIENT'S OXYGEN SATURATION CAME UP TO 94% ON 2L OF OXYGEN VIA NASAL CANNULA.
[2024-09-06] MEDS: METOPROLOL TARTRATE 25 MG TABLET PO (20:15)
[2024-09-06] MEDS: TAMSULOSIN HCL 0.4 MG CAPSULE PO (20:15)
[2024-09-06] MEDS: ATORVASTATIN CALCIUM 10 MG TABLET PO (20:16)
--- NOTE | 2024-09-06 21:35 | PC.RT ---
Sputum Culture collected and sent to lab for analysis.
[2024-09-07] VITALS (12 sets, daily range): BP systolic 114–139; BP diastolic 46–64; PULSE 71–98; RESP 12–24; TEMP 36.1–36.4; O2SAT 94–99; BMI 25.6; BMI 25.4
[2024-09-07] MEDS: VIT B12/Vit C/FA (Nephrovite) TABLET 1 TAB PO (08:10)
[2024-09-07] MEDS: PIPER/TAZO 3.375 GM PREMIX 3.375 GM/50 ML BAG IV ×2 (08:10→20:54)
[2024-09-07] MEDS: SEVELAMER CARBONATE 800 MG TABLET 1600 MG PO ×2 (08:10→16:56)
[2024-09-07] MEDS: GABAPENTIN 100 MG CAPSULE PO ×2 (08:11→20:53)
[2024-09-07] MEDS: METOPROLOL TARTRATE 25 MG TABLET PO ×2 (08:11→20:53)
[2024-09-07] MEDS: FAMOTIDINE 20 MG TABLET PO (08:11)
[2024-09-07] MEDS: HEPARIN SOD INJ 5000 UNIT/ML VIAL SC ×2 (08:11→20:54)
--- NOTE | 2024-09-07 08:41 | ESPR_ITS ---
Documentation for date of: 09/07/24 Subjective Subjective Interval history: 54 y/o M with PMHx significant for recently diagnosed RCC in June 2024, ESRD on dialysis //wed, type 2 diabetes, hyperlipidemia, liver cirrhosis, kidney stones history, chronic anemia, hyperlipidemia, hard of hearing, polyneuropathies, bipolar disorder, depression, CHF on home oxygen 2 L brought into the ED by EMS from [facility] with worsening shortness of breath associated with nausea and vomiting. Per EMS, patient was throwing up this morning and did not go for dialysis. He was hypoxic and was placed on 6 L which increase his oxygen saturation from 88 to 92%. Patient states he has been feeling sick since his last dialysis session on Wednesday, with nausea, vomiting, and worsening shortness of breath, is able to tolerate limited p.o. intake. Patient also notes associated abdominal pain, dull nonradiating, localized to epigastric/left upper quadrant. Patient states he is not constipated for several days but is passing gas. He was tachycardic heart rate 86 bpm with blood pressure 156/86. EKG was performed however have multiple artifacts with sinus tachycardia with no acute ST-T changes. Patient was given nitroglycerin sublingual and Nitropaste half inch to reduce afterload. Nephrology is consulted for management patient's dialysis. Patient seen and examined at bedside, appears to be in distress, on oxy mask. Patient complains of nausea and shortness of breath. Patient noticeably anasarcic, will receive dialysis with goal 3.5 L fluid removal. WBC 4.6, hemoglobin 9.6, sodium 139, potassium 4.3, bicarb 30.1, BUN 19, creatinine 3.8, EGFR 18. May require additional dialysis if patient appears to remain fluid overloaded. 09/06/2024: Patient seen and examined at bedside, resting comfortably. Patient significantly improved from yesterday, decreased anasarca, facial edema has resolved. Patient still has notable fluid overload with anasarca and significant crackles on exam, patient remains short of breath. Patient had rapid response overnight for tachycardia, tachypnea, fever, sepsis alert was called and patient started on vancomycin and Zosyn. WBC 8.7, hemoglobin 10.7. Sodium 140, potassium 3.8, bicarb 27.2, BUN 12, creatinine 2.6, EGFR 28. Plan for additional dialysis today with less fluid removal, will reevaluate after. 09/07/2024: Patient seen examined at bedside, resting comfortably. Patient continues to complain of shortness of breath, notes significant cough. Denies fever, chills, nausea, vomiting. Patient appears much dry on exam, wrinkled skin without edema in bilateral lower extremities. Will hold off on dialysis today. Patient no longer has crackles in lungs but has significant rhonchi and wheezing with cough, ordered glycopyrrolate and breathing treatments. WBC 8.7, hemoglobin 10.7, sodium 140, potassium 3.8, bicarb 27.2, BUN 12, creatinine 2.6, EGFR 28. Exam Vital Signs Temp Pulse Resp BP Pulse Ox O2 Del Method O2 Flow Rate 97.5 F 88 19 114/46 L 98 Oxy Mask 3 09/07/24 08:00 09/07/24 08:11 09/07/24 08:00 09/07/24 08:11 09/07/24 08:00 09/07/24 08:00 09/07/24 07:57 Narrative Exam PE: Gen: Well-developed and well-nourished. HEENT: NCAT, PERRLA, EOMI, MMM, anicteric conjunctivae. CVS: normal S1 and S2. RRR. No M/R/G. Resp: CTA B/L. No rhonchi, rales, wheezing. Significant rhonchi and wheezing in all lung gonzalez. Abd: soft, non-distended. Nontender. MSK: Good ROM in BUE & BLE. No rash. BLE dry with wrinkled skin. Stasis dermatitis. Neuro: CN II-XII grossly intact. Strength 5/5 in BUE & BLE. Alert and oriented x3. Psych: appropriate mood and affect. Objective Labs 09/08/24 04:48 09/08/24 04:48 Labs: Laboratory Results - last 24 hr 09/06/24 09/06/24 04:52 04:52 Smear Path Review Sent to Pathologist Cancelled ABG Interpretation ABG results: 09/05/24 10:12 VBG pH 7.42 VBG pCO2 43 VBG pO2 54 VBG Base Excess 3 Quality Measures Quality Measures VTE prophylaxis Assessment & Plan Assessment Current Active Medications: Generic Name Dose Route Start Last Admin Trade Name Freq PRN Reason Stop Dose Admin Acetaminophen 650 mg 09/05/24 12:08 Acetaminophen 325 Mg Tablet PO 10/05/24 12:07 Q6H PRN Fever >101.5 Acetaminophen 650 mg 09/05/24 12:08 Acetaminophen 325 Mg Tablet PO 10/05/24 12:07 Q6H PRN PAIN SCALE 1-3 (mild Hydrocodone Bitart/Acetaminophen 1 tab 09/05/24 21:07 09/06/24 08:27 Hydrocodone/Apap 10/325 Tab PO 09/10/24 21:06 1 tab Q4HR PRN Administration PAIN SCALE 6-10(Mod-Sev Albuterol 2 puff 09/05/24 17:16 Albuterol Inh 8 Gm INH 10/05/24 17:14 Q6H PRN SOB or wheezing Albuterol/Ipratropium 3 ml 09/07/24 08:33 Albuterol/Ipratropium (Duoneb) Rt [place] 3 Ml Nebu INH 10/07/24 08:32 Q2HR PRN SHORTNESS OF BREATH OR WHEEZE Atorvastatin Calcium 10 mg 09/05/24 21:00 09/06/24 20:16 Atorvastatin Calcium 10 Mg Tablet PO 10/05/24 20:59 10 mg HS SAMIA Administration Dextrose 25 ml 09/05/24 14:38 Dextrose 50%-Water Inj 50 Ml Syringe IV 10/05/24 14:37 Q15MIN PRN BG 50-70 responsive npo pt Dextrose 50 ml 09/05/24 14:38 Dextrose 50%-Water Inj 50 Ml Syringe IV 10/05/24 14:37 Q15MIN PRN BG <50 OR BG <70 & pt unresponsive Famotidine 20 mg 09/07/24 09:00 09/07/24 08:11 Famotidine 20 Mg Tablet PO 10/07/24 08:59 20 mg QDAY SAMIA Administration Protocol Gabapentin 100 mg 09/05/24 12:30 09/07/24 08:11 Gabapentin 100 Mg Capsule PO 10/05/24 12:29 100 mg BID SAMIA Administration Glucagon 1 mg 09/05/24 14:38 Glucagon Inj 1 Mg Vial IM Q15MIN PRN BG <70, and no IV access Glycopyrrolate 2 mg 09/07/24 09:00 Glycopyrrolate 1 Mg Tablet PO 10/07/24 08:59 BID SAMIA Heparin Sodium (Porcine) 5,000 unit 09/05/24 21:00 09/07/24 08:11 Heparin Sod Inj 5000 Unit/Ml Vial SC 09/19/24 20:59 5,000 unit Q12HR SAMIA Administration Piperacillin/Tazobactam/Dextrose 3.375 gm in 50 mls @ 12.5 mls/hr 09/06/24 06:00 09/07/24 08:10 Zosyn IV 09/13/24 05:59 12.5 mls/hr Q12HR SAMIA Administration Albumin Human 25 gm in 100 mls @ 100 mls/hr 09/06/24 09:31 09/06/24 19:23 Albuminar-25 Ivpb IV 09/09/24 09:30 Infused PRN PRN Infusion DIALYSIS Insulin Human Lispro 0 unit 09/05/24 17:00 09/07/24 07:30 Insulin Lispro (Admelog) 1 Unit/0.01 Ml Unit SC 10/05/24 16:59 Not Given AC SAMIA Protocol Magnesium Hydroxide 30 ml 09/05/24 12:08 Milk Of Magnesia Susp 30 Ml Udc PO 10/05/24 12:07 QDAY PRN CONSTIPATION Protocol Metoprolol Tartrate 25 mg 09/05/24 21:00 09/07/24 08:11 Metoprolol Tartrate 25 Mg Tablet PO 10/05/24 20:59 25 mg BID SAMIA Administration Midodrine 10 mg 09/05/24 12:15 09/06/24 20:11 Midodrine 5 Mg Tablet PO 10/05/24 12:14 Not Given BID SAMIA Ondansetron HCl 4 mg 09/05/24 12:08 09/05/24 17:59 Ondansetron Inj 2 Mg/Ml Inj 2 Ml IV 10/05/24 12:07 4 mg Q6H PRN Administration NAUSEA OR VOMITING Protocol Pharmacy Consult 1 each 09/05/24 18:12 Pharmacy Renal Dose Adjustment 1 Ea XX 10/05/24 18:11 PRN PRN CONSULT Polyethylene Glycol 17 gm 09/05/24 14:42 Polyethylene Glycol 17 Gm Packet PO 10/05/24 14:44 QDAY PRN constipation Sevelamer Carbonate 1,600 mg 09/05/24 17:30 09/07/24 08:10 Sevelamer Carbonate 800 Mg Tablet PO 10/05/24 17:29 1,600 mg TIDWM SAMIA Administration Tamsulosin HCl 0.4 mg 09/06/24 21:00 09/06/24 20:15 Tamsulosin Hcl 0.4 Mg Capsule PO 10/06/24 20:59 0.4 mg HS SAMIA Administration Vitamin B Complex/Vit C/Folic Acid 1 tab 09/06/24 09:00 09/07/24 08:10 Vit B12/Vit C/Fa (Nephrovite) Tablet PO 10/06/24 08:59 1 tab QDAY SAMIA Administration Plan 54 y/o M with PMHx significant for recently diagnosed RCC in June 2024, ESRD on dialysis //wed, type 2 diabetes, hyperlipidemia, liver cirrhosis, kidney stones history, chronic anemia, hyperlipidemia, hard of hearing, polyneuropathies, bipolar disorder, depression, CHF on home oxygen 2 L brought into the ED by EMS from [facility] with worsening shortness of breath associated with nausea and vomiting. Nephrology consulted for management of ESRD on dialysis. #ESRD on dialysis (Wednesday//Wednesday) Patient has history as stated. Patient is dialysis session this morning. Patient is extremely fluid overloaded on exam, anasarca, facial edema. Patient received hemodialysis today with goal of 3.5 L fluid removal, notable improvement the following day. Patient is still fluid overloaded with respiratory distress, crackles on exam, anasarca. Patient had 2 total dialysis sessions, showed significant improvement in fluid status, clinically dry on exam Will continue to monitor give additional dialysis as needed and/or as per usual schedule. Patient significant rhonchi and wheezing with shortness of breath, ordered breathing treatments and glycopyrrolate. - No dialysis today - Avoid nephrotoxins - Renally dose meds #Acute hypoxic respiratory failure #Cirrhosis #Anemia #Diabetes #CHF Management as per primary team Thank you for allowing us to participate in the care of this patient. Plan of care discussed with attending Dr. Velazquez. Ricardo Osborn MD PGY?1 Attending Provider Attestation/Addendum Patient seen and examined with resident physician Dr. Cuevas. Note reviewed, agree with findings and recommendations. Patient admitted with fluid overload. patient currently seen on dialysis. Tolerating dialysis without any problems. Hemodialysis for 2.5 hours, sequential ultrafiltration 2-2.5 L, Epogen 6000, no heparin ordered. Plan of care discussed with the dialysis nurse. Please see dialysis flowsheet for further details.
[2024-09-07 09:03] LABS: Basophils % (Auto) 1 % (0-2.5); Eosinophils # (Auto) 0.1 Thou/mm3 (0.0-0.5); Eosinophils % (Auto) 2 % (0-10); Hematocrit 33.8 % (41.0-53.0); Hemoglobin 10.7 g/dL (13.5-16.0); Immature Granulocytes % (Auto) 1 % (0-0); Immature Granulocytes Auto 0.03 Thou/mm3 (0.00-0.00); Lymphocytes # (Auto) 0.8 Thou/mm3 (1.0-4.8); Lymphocytes % (Auto) 12 % (10-50); Mean Corpuscular HGB Conc 31.7 g/dl (31.0-37.0); Mean Corpuscular Hemoglobin 30.3 pg (25.0-35.0); Mean Corpuscular Volume 96 fL (80-100); Monocytes # (Auto) 0.3 Thou/mm3 (0.0-0.8); Monocytes % (Auto) 5 % (0-12); Neutrophils # (Auto) 5.4 Thou/mm3 (1.8-7.7); Neutrophils % (Auto) 81 % (37-80); Nucleated Red Blood Cell % 0 /100 WBC (0); Platelet Count 136 Thou/mm3 (140-440); RDW Standard Deviation 49.1 fL (35.1-43.9); Red Blood Count 3.53 Miln/mm3 (4.50-5.90); White Blood Count 6.6 Thou/mm3 (3.8-10.6)
[2024-09-07 09:23] LABS: Anion Gap 13 (7-16); BUN/Creatinine Ratio 7 Ratio (12-20); Blood Urea Nitrogen 28 mg/dL (9-23); Calcium 8.5 mg/dL (8.3-10.6); Carbon Dioxide 26.7 mMol/L (20.0-31.0); Chloride 96 mMol/L (98-107); Creatinine (Component) 4.1 mg/dL (0.6-1.3); Estimated Creatinine Clearance 16.8 mL/min (>60); Glucose 130 mg/dL (74-106); Magnesium 2.2 mg/dL (1.6-2.6); Osmolality,Calculated 279 (275-295); Phosphorous 6.3 mg/dL (2.4-5.1); Potassium 4.5 mMol/L (3.4-5.1); Sodium 136 mMol/L (136-145); Vancomycin,Random 14.6 mcg/mL; eGFR 16 See Note
[2024-09-07] MEDS: GLYCOPYRROLATE 1 MG TABLET 2 MG PO ×2 (11:41→20:54)
[2024-09-07] MEDS: INSULIN LISPRO (AdmeLOG) 1 UNIT/0.01 ML UNIT SC (11:42)
--- NOTE | 2024-09-07 13:56 | PD.RESPRO ---
Documentation for date of: 09/07/24 Subjective Subjective Interval history: No acute events overnight, vital signs stable, patient afebrile, BP 114/96 mmHg, patient's mentation significantly improved this morning, able to have a dialogue, hemoglobin stable at 10.7, creatinine 4.5 today. Blood cultures demonstrating NGTD. Exam Vital Signs Temp Pulse Resp BP Pulse Ox O2 Del Method O2 Flow Rate 97.1 F 76 18 132/56 H 94 L Nasal Cannula 3 09/07/24 12:00 09/07/24 12:00 09/07/24 12:00 09/07/24 12:00 09/07/24 12:00 09/07/24 12:00 09/07/24 12:00 Narrative Exam GENERAL APPEARANCE: NAD, resting comfortably HEENT: Normocephalic, atraumatic, extraocular movements intact. NECK: Supple, no JVD or bruits. CARDIOVASULAR: NSR, S1, S2 heard without S3-S4 or murmur no rubs or gallops. LUNGS/CHEST: Very coarse breath sounds, patient also coughing however nonproductive ABDOMEN: Soft, nontender, with normal bowel sounds. No pulsatile masses. NEURO: Alert, awake and oriented x 2, patient confused on where he was at why he was here PSYCHIATRIC: Flat affect Objective Labs 09/07/24 08:11 09/07/24 08:11 Labs: Laboratory Results - last 24 hr 09/07/24 08:11 WBC 6.6 RBC 3.53 L Hgb 10.7 L Hct 33.8 L MCV 96 MCH 30.3 MCHC 31.7 RDW Std Deviation 49.1 H Plt Count 136 L D Neut % (Auto) 81 H Lymph % (Auto) 12 [place] % (Auto) 5 Eos % (Auto) 2 Baso % (Auto) 1 Neut # (Auto) 5.4 Lymph # (Auto) 0.8 L [place] # (Auto) 0.3 Eos # (Auto) 0.1 Baso # (Auto) 0.0 Immature Gran # (Auto) 0.03 H Absolute Nucleated RBC 0.00 Immature Gran % 1 H Nucleated RBC % 0 Sodium 136 Potassium 4.5 D Chloride 96 L Carbon Dioxide 26.7 Anion Gap 13 BUN 28 H Creatinine 4.1 H* D Estim Creat Clear Calc 16.8 L eGFR 16 L BUN/Creatinine Ratio 7 L Glucose 130 H Calculated Osmolality 279 Calcium 8.5 Phosphorus 6.3 H Magnesium 2.2 Random Vancomycin 14.6 ABG Interpretation ABG results: 09/05/24 10:12 VBG pH 7.42 VBG pCO2 43 VBG pO2 54 VBG Base Excess 3 Quality Measures Quality Measures VTE prophylaxis Assessment & Plan Assessment Current Active Medications: Generic Name Dose Route Start Last Admin Trade Name Freq PRN Reason Stop Dose Admin Acetaminophen 650 mg 09/05/24 12:08 Acetaminophen 325 Mg Tablet PO 10/05/24 12:07 Q6H PRN Fever >101.5 Acetaminophen 650 mg 09/05/24 12:08 Acetaminophen 325 Mg Tablet PO 10/05/24 12:07 Q6H PRN PAIN SCALE 1-3 (mild Hydrocodone Bitart/Acetaminophen 1 tab 09/05/24 21:07 09/06/24 08:27 Hydrocodone/Apap 10/325 Tab PO 09/10/24 21:06 1 tab Q4HR PRN Administration PAIN SCALE 6-10(Mod-Sev Albuterol 2 puff 09/05/24 17:16 Albuterol Inh 8 Gm INH 10/05/24 17:14 Q6H PRN SOB or wheezing Albuterol/Ipratropium 3 ml 09/07/24 08:33 Albuterol/Ipratropium (Duoneb) Rt Cassidy 3 Ml Nebu INH 10/07/24 08:32 Q2HR PRN SHORTNESS OF BREATH OR WHEEZE Atorvastatin Calcium 10 mg 09/05/24 21:00 09/06/24 20:16 Atorvastatin Calcium 10 Mg Tablet PO 10/05/24 20:59 10 mg HS SMAIA Administration Dextrose 25 ml 09/05/24 14:38 Dextrose 50%-Water Inj 50 Ml Syringe IV 10/05/24 14:37 Q15MIN PRN BG 50-70 responsive npo pt Dextrose 50 ml 09/05/24 14:38 Dextrose 50%-Water Inj 50 Ml Syringe IV 10/05/24 14:37 Q15MIN PRN BG <50 OR BG <70 & pt unresponsive Famotidine 20 mg 09/07/24 09:00 09/07/24 08:11 Famotidine 20 Mg Tablet PO 10/07/24 08:59 20 mg QDAY SAMIA Administration Protocol Gabapentin 100 mg 09/05/24 12:30 09/07/24 08:11 Gabapentin 100 Mg Capsule PO 10/05/24 12:29 100 mg BID SAMIA Administration Glucagon 1 mg 09/05/24 14:38 Glucagon Inj 1 Mg Vial IM Q15MIN PRN BG <70, and no IV access Glycopyrrolate 2 mg 09/07/24 09:00 09/07/24 11:41 Glycopyrrolate 1 Mg Tablet PO 10/07/24 08:59 2 mg BID SAMIA Administration Heparin Sodium (Porcine) 5,000 unit 09/05/24 21:00 09/07/24 08:11 Heparin Sod Inj 5000 Unit/Ml Vial SC 09/19/24 20:59 5,000 unit Q12HR SAMIA Administration Piperacillin/Tazobactam/Dextrose 3.375 gm in 50 mls @ 12.5 mls/hr 09/06/24 06:00 09/07/24 08:10 Zosyn IV 09/13/24 05:59 12.5 mls/hr Q12HR SAMIA Administration Albumin Human 25 gm in 100 mls @ 100 mls/hr 09/06/24 09:31 09/06/24 19:23 Albuminar-25 Ivpb IV 09/09/24 09:30 Infused PRN PRN Infusion DIALYSIS Insulin Human Lispro 0 unit 09/05/24 17:00 09/07/24 11:42 Insulin Lispro (Admelog) 1 Unit/0.01 Ml Unit SC 10/05/24 16:59 1 unit AC SAMIA Administration Protocol Magnesium Hydroxide 30 ml 09/05/24 12:08 Milk Of Magnesia Susp 30 Ml Udc PO 10/05/24 12:07 QDAY PRN CONSTIPATION Protocol Metoprolol Tartrate 25 mg 09/05/24 21:00 09/07/24 08:11 Metoprolol Tartrate 25 Mg Tablet PO 10/05/24 20:59 25 mg BID SAMIA Administration Midodrine 10 mg 09/05/24 12:15 09/07/24 11:43 Midodrine 5 Mg Tablet PO 10/05/24 12:14 Not Given BID SAMIA Ondansetron HCl 4 mg 09/05/24 12:08 09/05/24 17:59 Ondansetron Inj 2 Mg/Ml Inj 2 Ml IV 10/05/24 12:07 4 mg Q6H PRN Administration NAUSEA OR VOMITING Protocol Pharmacy Consult 1 each 09/05/24 18:12 Pharmacy Renal Dose Adjustment 1 Ea XX 10/05/24 18:11 PRN PRN CONSULT Polyethylene Glycol 17 gm 09/05/24 14:42 Polyethylene Glycol 17 Gm Packet PO 10/05/24 14:44 QDAY PRN constipation Sevelamer Carbonate 1,600 mg 09/05/24 17:30 09/07/24 08:10 Sevelamer Carbonate 800 Mg Tablet PO 10/05/24 17:29 1,600 mg TIDWM SAMIA Administration Tamsulosin HCl 0.4 mg 09/06/24 21:00 09/06/24 20:15 Tamsulosin Hcl 0.4 Mg Capsule PO 10/06/24 20:59 0.4 mg HS SAMIA Administration Vitamin B Complex/Vit C/Folic Acid 1 tab 09/06/24 09:00 09/07/24 08:10 Vit B12/Vit C/Fa (Nephrovite) Tablet PO 10/06/24 08:59 1 tab QDAY SAMIA Administration Plan Boone is a 54 y/o male with PMHx of RCC in June 2024, ESRD on dialysis //Wed (Dr. Velazquez), insulin-dependent type 2 diabetes mellitus, hyperlipidemia, cirrhosis, kidney stones history, chronic anemia, hard of hearing, polyneuropathies, bipolar disorder, depression, CHF (on home oxygen 2 L) currently admitted for acute hypoxic respiratory failure secondary to fluid overload. #Community acquired pneumonia Infiltrate on left lobe seen on x-ray Plan: ? Zosyn 3.375 mg Q12H IV ? Follow-up blood cultures ? Follow-up MRSA screen #Respiratory Distress #Fluid overload Plan: ? Nephrology consulted, appreciate recs ? HD today ? Follow-up echo #ESRD #History of renal cell carcinoma #History of previous pancreatic mass Clinical Trainer is Dr. Velazquez Plan: ? Nephrology consulted, appreciate recs ? HD // #History of cirrhosis #History of portal hypertension Chronic and seen on previous imaging Plan: -Continue to monitor chemistry panel #Pleural effusion #Pulmonary nodules Moderate pleural effusion on the left side and R side Pulmonary nodules in setting of metastatic renal cell carcinoma Plan: ? Will hold off on thoracentesis at this time and treat with abx ? As above #History of BPH Plan: ? Resumed home Flomax 0.4 mg #Insulin-dependent type 2 diabetes Mellitus A1c of 5.5 Plan: ? Sliding scale insulin ? Hypoglycemic protocol in place ? Blood sugar checks with meals #Hypertension #Hyperlipidemia Chronic LDL 21, total 93 Plan: ? Continue home Lipitor 10 mg at bedtime ? Continue home metoprolol tartrate 25 mg twice daily #Normocytic anemia secondary to #Anemia of chronic disease Ferritin ~900 TIBC 150 Iron ~12 Likely related to underlying CKD and cancer Plan: ? CTM #Health Maintenance Disposition: Pending clinical course and specialist recommendations, likely discharge in 1 to 2 days DVT prophylaxis: Heparin GI prophylaxis: Pepcid Diet: Carb low CODE STATUS: Full Attending Provider Attestation/Addendum I have discussed and was present for the essential components of the history, physical examination, diagnosis, and treatment plan with the resident. I agree with the patient's care as documented by the resident and amended herein by me. Keyshawn Douglass DO. Although this document has been carefully reviewed, there may still be some phonetic and other typographical errors. These errors are purely grammatical due to imperfections in the software program and should not be construed in any way to compromise the substance of the patient's medical care during this visit.
[2024-09-07 14:48] LABS: Collection Type, Urine Clean Catch
[2024-09-07 14:58] LABS: Bacteria,Urine Rare; Bilirubin,Urine Negative (Negative); Blood,Urine 2+ (Negative); Clarity,Urine Hazy (Clear/Hazy); Color,Urine Yellow (Lt Yel-Yel); Glucose, Urine Negative (Negative); Hyaline Casts,Urine < 1 /hpf (0-1); Ketones,Urine Trace (Negative); Leukocyte Esterase,Urine Positive (Negative); Nitrite,Urine Negative (Negative); Protein,Urine 3+ (Neg - Trace); RBC,Urine 53 /hpf (0-3); Specific Gravity,Urine 1.024 (1.001-1.035); Squamous Epithelial Cell,Urine 8 /hpf (0-5); Urobilinogen,Urine Negative mg/dL (0.0-1.0); WBC,Urine 494 /hpf (0-5)
[2024-09-07 15:13] LABS: Amphetamine/Methamp Scrn,U Negative (Negative); Barbiturate Screen,Urine Negative (Negative); Benzodiazepines Screen,Urine Negative (Negative); Benzoylecgonine Screen, Ur Negative (Negative); Fentanyl Screen,Urine Negative (Negative); Opiate Screen,Urine Positive (Negative); THC Screen,Urine Negative (Negative)
--- NOTE | 2024-09-07 16:15 | PC.NURSE ---
Called Dr. Jewell to see if pt is going to receive dialysis today as the patient's Cr is elevated to 4.1. Per Dr. Velazquez patient will receive treatment tomarrow.
[2024-09-07] MEDS: ATORVASTATIN CALCIUM 10 MG TABLET PO (20:53)
[2024-09-07] MEDS: TAMSULOSIN HCL 0.4 MG CAPSULE PO (20:54)
[2024-09-08] VITALS (20 sets, daily range): BP systolic 89–151; BP diastolic 41–76; PULSE 65–92; RESP 13–23; TEMP 36.1–36.7; O2SAT 92–100; BMI 25.6
[2024-09-08 05:28] LABS: Basophils % (Auto) 1 % (0-2.5); Eosinophils # (Auto) 0.4 Thou/mm3 (0.0-0.5); Eosinophils % (Auto) 6 % (0-10); Hematocrit 30.8 % (41.0-53.0); Immature Granulocytes % (Auto) 0 % (0-0); Immature Granulocytes Auto 0.02 Thou/mm3 (0.00-0.00); Lymphocytes # (Auto) 0.9 Thou/mm3 (1.0-4.8); Lymphocytes % (Auto) 15 % (10-50); Mean Corpuscular HGB Conc 32.5 g/dl (31.0-37.0); Mean Corpuscular Volume 93 fL (80-100); Monocytes # (Auto) 0.4 Thou/mm3 (0.0-0.8); Monocytes % (Auto) 7 % (0-12); Neutrophils # (Auto) 4.2 Thou/mm3 (1.8-7.7); Neutrophils % (Auto) 72 % (37-80); Nucleated Red Blood Cell % 0 /100 WBC (0); Platelet Count 119 Thou/mm3 (140-440); RDW Standard Deviation 47.1 fL (35.1-43.9); Red Blood Count 3.33 Miln/mm3 (4.50-5.90); White Blood Count 5.9 Thou/mm3 (3.8-10.6)
[2024-09-08 06:15] LABS: Anion Gap 12 (7-16); BUN/Creatinine Ratio 8 Ratio (12-20); Blood Urea Nitrogen 36 mg/dL (9-23); Calcium 8.3 mg/dL (8.3-10.6); Carbon Dioxide 26.8 mMol/L (20.0-31.0); Chloride 96 mMol/L (98-107); Creatinine (Component) 4.8 mg/dL (0.6-1.3); Estimated Creatinine Clearance 14.4 mL/min (>60); Glucose 115 mg/dL (74-106); Magnesium 2.1 mg/dL (1.6-2.6); Osmolality,Calculated 279 (275-295); Phosphorous 5.1 mg/dL (2.4-5.1); Potassium 4.7 mMol/L (3.4-5.1); Sodium 135 mMol/L (136-145); eGFR 13 See Note
[2024-09-08] MEDS: HYDROcodone/APAP 10/325 TAB PO ×2 (08:15→12:22)
--- NOTE | 2024-09-08 09:13 | PC.SS ---
Follow up note: Possible d/c back to [facility] today.
[2024-09-08] MEDS: ALBUMIN HUMAN 25% IVPB 25 GM/100 ML BTL IV (10:19)
--- NOTE | 2024-09-08 11:40 | ESPR_ITS ---
Documentation for date of: 09/08/24 Subjective Subjective Interval history: Mr. Arredondo is a 54 y/o M with PMHx significant for recently diagnosed RCC in June 2024, ESRD on dialysis //wed, type 2 diabetes, hyperlipidemia, liver cirrhosis, kidney stones history, chronic anemia, hyperlipidemia, hard of hearing, polyneuropathies, bipolar disorder, depression, CHF on home oxygen 2 L brought into the ED by EMS from [facility] with worsening shortness of breath associated with nausea and vomiting. Per EMS, patient was throwing up this morning and did not go for dialysis. He was hypoxic and was placed on 6 L which increase his oxygen saturation from 88 to 92%. Patient states he has been feeling sick since his last dialysis session on Wednesday, with nausea, vomiting, and worsening shortness of breath, is able to tolerate limited p.o. intake. Patient also notes associated abdominal pain, dull nonradiating, localized to epigastric/left upper quadrant. Patient states he is not constipated for several days but is passing gas. He was tachycardic heart rate 86 bpm with blood pressure 156/86. EKG was performed however have multiple artifacts with sinus tachycardia with no acute ST-T changes. Patient was given nitroglycerin sublingual and Nitropaste half inch to reduce afterload. Nephrology is consulted for management patient's dialysis. Patient seen and examined at bedside, appears to be in distress, on oxy mask. Patient complains of nausea and shortness of breath. Patient noticeably anasarcic, will receive dialysis with goal 3.5 L fluid removal. WBC 4.6, hemoglobin 9.6, sodium 139, potassium 4.3, bicarb 30.1, BUN 19, creatinine 3.8, EGFR 18. May require additional dialysis if patient appears to remain fluid overloaded. 09/06/2024: Patient seen and examined at bedside, resting comfortably. Patient significantly improved from yesterday, decreased anasarca, facial edema has resolved. Patient still has notable fluid overload with anasarca and significant crackles on exam, patient remains short of breath. Patient had rapid response overnight for tachycardia, tachypnea, fever, sepsis alert was called and patient started on vancomycin and Zosyn. WBC 8.7, hemoglobin 10.7. Sodium 140, potassium 3.8, bicarb 27.2, BUN 12, creatinine 2.6, EGFR 28. Plan for additional dialysis today with less fluid removal, will reevaluate after. 09/07/2024: Patient seen examined at bedside, resting comfortably. Patient continues to complain of shortness of breath, notes significant cough. Denies fever, chills, nausea, vomiting. Patient appears much dry on exam, wrinkled skin without edema in bilateral lower extremities. Will hold off on dialysis today. Patient no longer has crackles in lungs but has significant rhonchi and wheezing with cough, ordered glycopyrrolate and breathing treatments. WBC 8.7, hemoglobin 10.7, sodium 140, potassium 3.8, bicarb 27.2, BUN 12, creatinine 2.6, EGFR 28. 09/08/2024 patient currently seen on dialysis. He is feeling much better. The cough and shortness of breath are better. Postdialysis will be discharged back to rehab. Review of Systems Review of Systems Narrative Review of Systems: CONSTITUTIONAL: Patient denies any fever, chills. Complaining of fatigue HEENT: +hearing problems. CARDIOVASCULAR: Patient denies any chest pain. c/o shortness of breath, swelling in the lower extremities. PULMONARY: Patient c/o shortness of breath, cough- better GASTROINTESTINAL: Patient denies any abdominal pain, constipation, nausea, vomiting, diarrhea. GENITOURINARY: Patient denies any urinary symptoms of burning or frequency or hematuria, denies any form in the urine. SKIN: Denies any rash. MUSCULOSKELETAL: Positive gait imbalance-mostly wheelchair-bound NEUROLOGICAL: Denies any neurological problems of strokes, seizures or confusion. Denies any memory problems. PSYCHIATRIC: Noted to have easy irritability Exam Vital Signs Temp Pulse Resp BP Pulse Ox O2 Del Method O2 Flow Rate 36.6 C 88 18 127/60 99 Nasal Cannula 1 09/08/24 10:58 09/08/24 11:37 09/08/24 10:58 09/08/24 11:37 09/08/24 10:58 09/08/24 08:00 09/08/24 10:58 Narrative Exam PE: Gen: Well-developed and well-nourished. HEENT: NCAT, PERRLA, EOMI, MMM, anicteric conjunctivae. CVS: normal S1 and S2. RRR. No M/R/G. Resp: CTA B/L. No rhonchi, rales, wheezing. Significant rhonchi and wheezing in all lung gonzalez. Abd: soft, non-distended. Nontender. MSK: Good ROM in BUE & BLE. No rash. BLE dry with wrinkled skin. Stasis dermatitis. Neuro: CN II-XII grossly intact. Strength 5/5 in BUE & BLE. Alert and oriented x3. Psych: appropriate mood and affect. Objective Labs 09/08/24 04:48 09/08/24 04:48 Labs: Laboratory Results - last 24 hr 09/07/24 09/08/24 14:25 04:48 WBC 5.9 RBC 3.33 L Hgb 10.0 L Hct 30.8 L MCV 93 MCH 30.0 MCHC 32.5 RDW Std Deviation 47.1 H Plt Count 119 L Neut % (Auto) 72 Lymph % (Auto) 15 [place] % (Auto) 7 Eos % (Auto) 6 Baso % (Auto) 1 Neut # (Auto) 4.2 Lymph # (Auto) 0.9 L Lucas # (Auto) 0.4 Eos # (Auto) 0.4 Baso # (Auto) 0.0 Immature Gran # (Auto) 0.02 H Absolute Nucleated RBC 0.00 Immature Gran % 0 Nucleated RBC % 0 Sodium 135 L Potassium 4.7 Chloride 96 L Carbon Dioxide 26.8 Anion Gap 12 BUN 36 H Creatinine 4.8 H* D Estim Creat Clear Calc 14.4 L eGFR 13 L* BUN/Creatinine Ratio 8 L Glucose 115 H Calculated Osmolality 279 Calcium 8.3 Phosphorus 5.1 Magnesium 2.1 Ur Collection Type Clean Catch Urine Color Yellow Urine Clarity Hazy Urine pH 6.0 Ur Specific [place] 1.024 Urine Protein 3+ A Urine Glucose (UA) Negative Urine Ketones Trace Urine Blood 2+ A Urine Nitrite Negative Urine Bilirubin Negative Urine Urobilinogen (Auto) Negative Ur Leukocyte Esterase Positive Urine RBC 53 H Urine WBC 494 H Ur Squamous Epith Cells 8 H Urine Bacteria Rare Hyaline Casts < 1 Urine Opiates Screen Positive A Urine Fentanyl Screen Negative Ur Barbiturates Screen Negative U Amphetamin/Meth Scrn Negative U Benzodiazepines Scrn Negative U Cocaine Metab Screen Negative U Marijuana (THC) Screen Negative ABG Interpretation ABG results: 09/05/24 10:12 VBG pH 7.42 VBG pCO2 43 VBG pO2 54 VBG Base Excess 3 Assessment & Plan Additional Assessment & Plan Additional Plan: 54 y/o M with PMHx significant for recently diagnosed RCC in June 2024, ESRD on dialysis //wed, type 2 diabetes, hyperlipidemia, liver cirrhosis, kidney stones history, chronic anemia, hyperlipidemia, hard of hearing, polyneuropathies, bipolar disorder, depression, CHF on home oxygen 2 L brought into the ED by EMS from [facility] with worsening shortness of breath associated with nausea and vomiting. Nephrology consulted for management of ESRD on dialysis. #ESRD on dialysis (Wednesday//Wednesday) -Patient currently seen on dialysis. Tolerating dialysis without any problems. Hemodialysis for 3 hours, 2K, ultrafiltration 2-3 L, Epogen 6000, no heparin ordered. Plan of care discussed with the dialysis nurse. Please see dialysis flowsheet for further details. Follow-up with dialysis unit tomorrow for his TTS schedule if discharged. - Avoid nephrotoxins - Renally dose meds #Acute hypoxic respiratory failure #Cirrhosis #Anemia #Diabetes #CHF Management as per primary team Quality - progress note Quality Measures Quality Measures: VTE prophylaxis Reason for Continued Stay Reason for Continued Stay: further monitoring
--- NOTE | 2024-09-08 11:53 | PC.SS ---
Addendum entered by Rachel Pinto 09/08/24 15:58: SS was informed by Sharon at [facility] their engine maintenance mechanic has informed her they can accept pt as late d/c tonight. Per Sharon at [facility], they are able to accept pt after 7pm tonight. has setup gurney transportation with three different representatives from [facility] [phone]. Rufino from from [facility] states he is not trained and out of his scope of practice. Rufino transfer call to Jose who stated he can only setup transport for wheelchair or ambulatory patients. Brian transferred call to [facility]. [facility] was able to setup gurney transport with O2 for today at 7pm. Ref# [id number]. has explained transportation can not before 7pm. Per Shanice, they require 1-3 hours to secure transportation. has requested [facility] due to being local transport company. has sent patient's facesheet and ambulance form to [facility] using [employer]. has spoken to Maxine from [employer], confirmed she received patient's information through [employer], and provided her with phone# to nurses station to contact. Maxine is aware transportation is for 7pm. Bedside nurse, Fito is aware and states she has informed pt. Mirela MASTERS is aware and provided her with [employer]'s phone#. Sharon at [facility] is aware. SNF packet has been prepared and is on patient's chart. Addendum entered by Rachel Pinto 09/08/24 12:17: has sent updated inquiry to [facility]. Original Note: has informed Sharon from [facility] pt will return today. SS was informed by Sharon at [facility] they are painting patient's room and due t the fumes room as to be left unoccupied overnight. Per Sharon, they do not have male beds available to utilizes for pt. [facility] is able to accept pt tomorrow in the morning.
[2024-09-08] MEDS: SEVELAMER CARBONATE 800 MG TABLET 1600 MG PO (12:22)
--- NOTE | 2024-09-08 16:05 | ESDS_ITS ---
Planned Discharge Date 09/08/24 DS: Providers Provider Date of admission: 09/05/24 11:35 Primary care physician: Bear Mendieta MD Admitting Provider: Pedro Luis Douglass DO Attending Provider on Admission: Pedro Luis Douglass DO Consults: 09/05/24 10:12 Consult to Nephrology Stat Comment: Consulting Provider: Maycol Velazquez Attending Provider on DC: Pedro Luis Douglass DO Discharging Provider: Pedro Luis Douglass DO DS: Diagnosis Problem List Completed Was Problem List Reviewed/Reconciled?: Yes Hospital Course Hospital Course Hospital course: Boone is a 54 y/o male with PMHx of RCC diagnosed in June 2024, ESRD on dialysis //Wed (Dr. Velazquez), insulin-dependent type 2 diabetes mellitus, hyperlipidemia, Cirrhosis, kidney stones history, chronic anemia, hard of hearing, polyneuropathies, bipolar disorder, depression, CHF (on home oxygen 2 L) who was admitted to [facility] on September 06, 2024 for respiratory distress and fluid overload likely related to ESRD. Patient was brought to the ED with a blood pressure 143/77, heart rate of 100, tachypneic with a respiratory of 22, afebrile, saturating 98% on 6 L nasal cannula. He was worked up once found to h ave a white count of 4.6, hemoglobin of 9.6, platelets of 118, potassium 4.3, sodium 139, bicarb 30, anion gap of 7, BUN and creatinine of 18 and 3.8 respectively, glucose 171, lactate 0.6, calcium 8.4, magnesium 2.0, troponin negative x 1, BNP 903. Chest x-ray was done which showed pulmonary edema and pleural effusions. VBG pH was done and showed 7.42, pCO2 of 43, PO2 of 54. Patient was given nitroglycerin sublingual and Nitropaste as he had felt some chest discomfort in addition to hydromorphone 0.5 mg x 1. Medicine was consulted and patient admitted to the floors. While on the floors, patient had hemodialysis done with his enterprise architect manager, Dr. Retana. Initial hemodialysis session remove 3.5 L of patient. Patient was additionally treated for community-acquired pneumonia in which she was given broad-spectrum antibiotics of Zosyn. Patient continued to improve with additional hemodialysis sessions and antibiotic treatment. Sputum and blood cultures had resulted negative for the patient. Due to pulmonary edema, echocardiogram was ordered which showed G1DD, EF of 60 to 65% with normal LV. With clinical improvement, patient was discharged with the following instructions. Discharge Instructions: Follow up with your PCP within one week Follow up with your Motivational Speaker, Dr. Velazquez within one week Continue with your dialysis schedule with Dr. Velazquez Please follow-up with a oncologist and urologist for your renal cell carcinoma Take your medicines as prescribed Finish your antibiotic Levaquin, as prescribed as this is for your pneumonia Return to ER if your symptoms return or worsen Problem List: #Community acquired pneumonia #Respiratory Distress #Fluid overload #ESRD #History of renal cell carcinoma #History of previous pancreatic mass #History of cirrhosis #History of portal hypertension #Pleural effusion #Pulmonary nodules #Mediastinal lymphadenopathy #History of BPH #Insulin-dependent type 2 diabetes Mellitus #Hypertension #Hyperlipidemia #Anemia of chronic disease Discharge summary was reviewed with my attending Dr. Evonne Wang, PGY-1 Time Spent with Patient Time attestation: Total time spent providing and/or coordinating discharge services: Time spent: Greater than 30 minutes Exam Vital Signs Temp Pulse Resp BP Pulse Ox O2 Del Method O2 Flow Rate 97.6 F 92 20 137/56 H 96 Nasal Cannula 1 09/08/24 12:00 09/08/24 12:00 09/08/24 12:00 09/08/24 12:00 09/08/24 12:00 09/08/24 12:00 09/08/24 12:00 Narrative Exam General: AAOx3, appears to be older than he is HEENT: Moist mucous membranes, conjunctiva clear, EOMI, PERRLA, Cardiovascular: S1, S2, radial pulses +2 bilat, RRR, possible ejection systolic murmur Pulmonary: Coarse breath sounds, on nasal cannula GI: No tenderness to light or deep palpitation, no guarding, rigidity, rebound tenderness or distension Extremities: Lower extremities dry, skin looks taut, some stasis bilaterally, trace edema Neuro: AAOx3, limited neuroexam as patient is in dialysis chair Psych: Able to slightly cooperate Discharge Plan Plan Patient Disposition: Xfer Skilled Nsg Fac (SNF) Patient condition on transfer: Stable Care Plan Goals: Discharge Instructions: Follow up with your PCP within one week Follow up with your Motivational Speaker, Dr. Velazquez within one week Please follow-up with a oncologist and urologist for your renal cell carcinoma Continue with your dialysis schedule with Dr. Velazquez Take your medicines as prescribed Finish your antibiotic Levaquin, as prescribed as this is for your pneumonia Return to ER if your symptoms return or worsen Prescriptions/Referrals Prescriptions/Med Rec: New levofloxacin 250 mg tablet 250 mg PO QDAY 4 Days Qty: 4 0RF Rx Instructions: Take one tablet once a day by mouth Continued Vanita-Mackenzie 0.8 mg Tablet 1 tab PO QDAY gabapentin 100 mg Capsule 100 mg PO BID bisacodyl [Dulcolax (bisacodyl)] 10 mg Suppository 10 mg ME Q72H PRN (Reason: Constipation) Rx Instructions: if mom ineffective Fleet Enema 19-7 gram/118 mL Enema 118 ml ME Q72H PRN (Reason: Constipation) Rx Instructions: if mom/dulcolax supp ineffective insulin aspart U-100 100 unit/mL Solution See Rx Instructions .ROUTE .COMPLEX PRN (Reason: Hyperglycemia) Rx Instructions: give per sliding scale before meals and at bedtime. 151-200 = 2 units, 201- 250 = 4 units, 250-300 = 6 units, 301-350 = 8 units, 351-400 = 10 units, 401+ = 10 units albuterol sulfate 90 mcg/actuation HFA aerosol inhaler 2 puff IH Q6H PRN (Reason: shortness of breath or wheezing) Qty: 18 2RF hydrocodone-acetaminophen [[place]] 10-325 mg Tablet 1 tab PO Q4HR PRN (Reason: Pain) Rx Instructions: for moderate to severe pain 4-10, max 3g APAP in 24H acetaminophen 325 mg Tablet 650 mg PO Q6H PRN (Reason: Pain/Fever) Rx Instructions: Mild pain 1-3 or temp>101F, NTE 3g in 24H sevelamer carbonate [Renvela] 800 mg Tablet 1,600 mg PO TIDWM Rx Instructions: must administer with a meal/food tamsulosin [Flomax] 0.4 mg Capsule 0.4 mg PO HS glucagon 1 mg Kit 1 mg subcut Q20MIN PRN (Reason: Hypoglycemia) Rx Instructions: for BS<60. Max 2 doses. polyethylene glycol 3350 [Miralax] 17 gram/dose Powder 17 g PO QAM ipratropium-albuterol 0.5 mg-3 mg(2.5 mg base)/3 mL solution for nebulization 3 ml INHALATION QID PRN (Reason: SOB/Wheeze) metoprolol tartrate 25 mg tablet 25 mg PO BID Rx Instructions: Hold if SBP<100 or DBP<50 cranberry 450 mg Tablet 450 mg PO QDAY Rx Instructions: administer with a meal atorvastatin [Lipitor] 10 mg tablet 10 mg PO QPM Trelegy Ellipta 200-62.5-25 mcg blister with device 1 inh inhalation QDAY Discontinued Pro-Stat Sugar Free 15-100 gram-kcal/30 mL liquid 30 ea PO DAILY Rx Instructions: 30ml for supplement Referrals: Bear Mendieta MD [Primary Care Provider] - Patient/Caregiver Discharge Instructions Discharge Activity: activity as tolerated Education Materials: Anemia During Cancer, CKD Dc, ED Pneumonia (Adult) Print Language: Macedonian Stand Alone Forms: Jolie Award Info., Patient Portal Info Letter Discharge Order Discharge Orders: Discharge (Routine); Ordered 09/08/24 Ordered By: Joan Wang Quality Discharge Quality Measures VTE prophylaxis (Heparin) Attestestation MD Attestation I have discussed and was present for the essential components of the discharge history, physical examination, diagnosis, and discharge treatment plan with the resident. I agree with the patient's discharge care as documented by the resident and amended herein by me. Keyshawn Douglass DO. The patient understood all discharge instructions, all questions were answered satisfactorily. The patient was instructed to return to the Emergency Department is symptoms worsened or persisted. Patient was stable, afebrile, tolerating p.o. intake at time of discharge back to his facility. Patient significantly improved, will be discharged with an additional 4-day course of Levaquin, see resident note above for additional details. Although this document has been carefully reviewed, there may still be some phonetic and other typographical errors. These errors are purely grammatical due to imperfections in the software program and should not be construed in any way to compromise the substance of the patient's medical care during this visit.
== END 2024-09-08 19:02 | disposition skilled nursing facility (03) | DRG 640 ==
LOC: SERX 11:39 → SERHOLD 12:01 → S2NX 17:49
PROVIDERS: Internal Medicine; Admitting Provider Student in an Organized Health Care Education/Training Program; Emergency Provider Emergency Medicine; PCP Family Medicine; Visit Provider Student in an Organized Health Care Education/Training Program
DX: E87.70 Fluid overload, unspecified (principal); I50.33 Acute on chronic diastolic (congestive) heart failure; J18.9 Pneumonia, unspecified organism; J96.01 Acute respiratory failure with hypoxia; N18.6 End stage renal disease; I13.2 Hypertensive heart and chronic kidney disease with heart failure and with stage 5 chronic kidney disease, or end stage renal disease; C64.9 Malignant neoplasm of unspecified kidney, except renal pelvis; K76.6 Portal hypertension; K74.60 Unspecified cirrhosis of liver; E78.5 Hyperlipidemia, unspecified; D63.1 Anemia in chronic kidney disease; G89.29 Other chronic pain; N40.0 Benign prostatic hyperplasia without lower urinary tract symptoms; F31.9 Bipolar disorder, unspecified; E11.22 Type 2 diabetes mellitus with diabetic chronic kidney disease; K59.00 Constipation, unspecified; M54.50 Low back pain, unspecified; H91.90 Unspecified hearing loss, unspecified ear; F17.210 Nicotine dependence, cigarettes, uncomplicated; K86.9 Disease of pancreas, unspecified; R59.0 Localized enlarged lymph nodes; Z99.2 Dependence on renal dialysis; Z99.81 Dependence on supplemental oxygen; Z79.4 Long term (current) use of insulin; Z79.899 Other long term (current) drug therapy; Z87.442 Personal history of urinary calculi; Z88.0 Allergy status to penicillin; Z88.5 Allergy status to narcotic agent
CPT/HCPCS: 36415; 71045; 80048; 80053; 80061; 80074; 80202; 80307; 81001; 82728; 82803; 83036; 83540; 83550; 83605; 83690; 83735; 83880; 84100; 84145; 84443; 84484; 85025; 85046; 86706; 87040; 87077; 87081; 87086; 87186; 87205; 93005; 93306; 99285; J1171; J1644; J1815; J1885; J2405; J2543; J3370; J3490; P9047; Q4081; A9270

== ENCOUNTER → 2024-10-04 | Outpatient (CLI) | payer MEDICARE, MEDICAID, SELFPAY ==
--- NOTE | 2024-10-04 15:30 | XR_ITS ---
Examination: CT chest, without intravenous contrast. CT abdomen, without intravenous contrast. CT pelvis, without intravenous contrast. 2-D sagittal and coronal reconstructions. 3-D reconstructions. Date and time of exam:October 04, 2024 1509 hours INDICATIONS: Diagnosis end-stage renal disease, left upper abdominal pain this week, 5.5 cm anterior solid left renal mass on CT abdomen May 29, 2024 CTDI vol (mgy) 6.19 DLP (MGycm)469 Technique: Multiple CT images, 3.0 mm slice thickness, obtained chest, abdomen, pelvis, with the high-resolution 64 slice scanner.. Sagittal and coronal 2-D reconstructions are obtained. 3-D reconstructions Low dose protocols were performed. One or more of the following dose reduction techniques were used; automated exposure control, adjustment of the mA and/or KV according to patient size, use of iterative reconstruction technique. Findings: Again noted mediastinal lymphadenopathy, high periaortic, tracheobronchial, subcarinal on this noncontrast study Bilateral pulmonary nodules again depicted, the largest in the anterior segment right upper lobe, 11 mm No interval pneumonia or pulmonary edema Minimal right mild left pleural disease No focal liver or splenic lesion Again noted lobular mass at the anterior margin left kidney, axial image 168, measuring 5.5 x 5.0 cm 4 mm 1 mm right renal calculus Probable left nephrectomy findings, partial Aorta normal size Multiple periaortic lymph nodes, the largest 8 mm No ascites No bowel obstruction Contracted urinary bladder Soft tissue mass subcutaneous tissue anterior lower pelvis image 291, 20 mm IMPRESSION: Extensive mediastinal lymphadenopathy No change in bilateral pulmonary nodules compared with May 29, 2024 Again noted lobular mass at the anterior margin left kidney 5.5 x 5.0 cm Multiple para-aortic lymph nodes Soft tissue likely metastatic soft tissue mass in the subcutaneous tissue anterior lower pelvis, 20 mm
== END | disposition home or self-care (01) ==
LOC: CCTX 14:38
PROVIDERS: PCP Family Medicine; Referring Provider Family Medicine; Visit Provider Family Medicine
DX: R59.0 Localized enlarged lymph nodes (principal); N28.89 Other specified disorders of kidney and ureter; C64.2 Malignant neoplasm of left kidney, except renal pelvis; C78.00 Secondary malignant neoplasm of unspecified lung
CPT/HCPCS: 71250; 74176

== ENCOUNTER 2024-12-27 10:01 | Outpatient (RCR) | payer MEDICARE, MEDICAID, SELFPAY ==
--- NOTE | 2024-12-27 12:35 | CTCCONSULT_ITS ---
Patient: ANJELICA GARZA : 1970 MR#: [id number] Page 4 of 7 CONSULTATION NOTE DATE OF CONSULTATION: 12/27/2024 NAME: ANJELICA GARZA ACCOUNT: [id number] : 1970 AGE: 54 REFERRING PHYSICIAN: Zion Reddy MD PRIMARY PHYSICIAN: Zion Reddy MD REASON FOR VISIT: Kidney cancer ONCOLOGY HISTORY: DIAGNOSIS: Squamous cell carcinoma of skin of right upper limb, including shoulder [ICD10] C44.622; Malignant neoplasm of left kidney, except renal pelvis [ICD10] C64.2 DATE OF DIAGNOSIS: 09/16/2022 11/28/2024 STAGE/TNM: 09/16/2022 Stage IV T2b N1 M1 TREATMENT HISTORY: Care?Plan Start?Date Cycle Day Intent Axitinib?and?Pembrolizumab 12/27/2024 1 21 Palliative HISTORY OF PRESENT ILLNESS: 54-year-old male is a patient who is brought from the snf. Patient was diagnosed with a left kidney cancer after he was diagnosed with metastatic kidney cancer in 08/29/2022. Patient ultimately had biopsy of his kidney on the left side and was diagnosed with clear-cell cancer. Patient unfortunately was never started on treatment. Patient is now here to establish care OTHER MEDICAL HISTORY/CONDITIONS: Clear cell renal cell neoplasm - dx 06/28/24 Chronic kidney disease - on will;lysis Didabetes HTN CHF Cirrhosis liver Depression Squamous cell carcinoma skin BPH Cholecystectomy Left inguinal hernia repair Appendectomy Tonsillectomy FAMILY HISTORY: Cancer History:?Pat aunt - lung- 60's; Pat granfather-lung - dx 80's SOCIAL HISTORY: Occupational?History:?Disabled Education?Level:?Completed High School Marital?Status:?Single Tobacco Use:?Cont smoking-smoked x 17yrs - 1/2 PPD ETOH Use:?Drank 15yrs 12 pk/day - Quit 2008 Drug?Note:?Denies Social History Note:?Lives at [facility] MEDICATIONS: 1. Albuterol Sulfate HFA - 90 mcg/Actuation 2 Puff(s) Every 6 Hours 2. atorvastatin - 10 mg Every day before sleep 3. Breo Ellipta - 200-25 mcg/dose 10 Puff(s) Daily 4. cranberry - 450 mg 1 tab Daily 5. gabapentin - 100 mg Twice a Day 6. HYDROcodone-acetaminophen - 10-325 mg 1 tab Every 4 Hours 7. Incruse Ellipta - 62.5 mcg/actuation 1 Puff(s) Daily 8. insulin aspart (niacinamide) - 100 unit/mL As directed 9. ipratropium-albuteroL - 0.5-2.5 mg/2.5 mL 1 dose Every 6 Hours 10. metoprolol tartrate - 25 mg 1 tab Twice a Day 11. midodrine - 10 mg Twice a Day 12. ondansetron - 4 mg 1 tab Every 6 Hours 13. Renal-Mackenzie - 0.8 mg 1 tab Daily 14. Renvela - 800 mg As directed 15. tamsulosin - 0.4 mg 1 Capsule Every day before sleep 16. Vitamin D - 5,000 unit 1 tab Daily Medications Last Reconciled by Sherri Dye RN on 12/27/2024 ALLERGIES: PENICILLAMINE REVIEW OF SYSTEMS: A complete 14-point review of systems was performed and is negative except as noted in interval history. PHYSICAL EXAMINATION: VITAL SIGNS: B/P?132/67, Height?65?inches, Oxygen?Saturation?96% Weight?144?lbs PAIN: 5 - Between moderate and severe pain ECOG Performance Status: 2 - Symptomatic; ambulatory; capable of self-care; >50% of waking hrs. not in bed GENERAL APPEARANCE: Appears well, in no apparent distress, appropriately interactive. HEENT: Normocephalic, no temporal wasting, normal conjunctiva, no scleral icterus, normal hearing, lips without lesions, neck normal range of motion. CARDIOVASCULAR: Not assessed. PULMONARY: Normal respiratory effort, no respiratory distress or use of accessory muscles, speaking in full sentences, no tachypnea. EXTREMITIES: No pedal edema or cyanosis. SKIN: Normal skin appearance. NEUROLOGIC: Alert and oriented x4. PSHYCHIATRIC: Appropriate affect, mood normal, behavior normal, intact thought and speech. LABORATORY DATA: I have personally reviewed and interpreted each of the patient?s relevant lab tests, abnormal findings are below: Date 09/07/24 09/08/24 ??WHITE?BLOOD?COUNT?(Thou/mm3) 6.6 5.9 ??RED?BLOOD?COUNT?(Miln/mm3) 3.53?L 3.33?L ??HEMOGLOBIN?(gm/dl) 10.7?L 10.0?L ??HEMATOCRIT?(%) 33.8?L 30.8?L ??PLATELET?COUNT?(Thou/mm3) 136?L 119?L ??NEUTROPHILS?%,?AUTO?(%) 81?H 72 ??LYMPH?%,?AUTO?(%) 12 15 ??NEUTROPHILS,?AUTO?(Thou/mm3) 5.4 4.2 ??GLUCOSE,RANDOM?(mg/dL) ? 115?H ??BLOOD?UREA?NITROGEN?(mg/dL) ? 36?H ??CREATININE?(mg/dL) ? 4.80?HH ??SODIUM?(mmol/L) ? 135?L ??POTASSIUM?(mmol/L) ? 4.7 ??CHLORIDE?(mmol/L) ? 96?L ??CrCl?(CandG)?(ml/min) ? 18.41 ??CALCIUM,?SERUM?(mg/dL) ? 8.3 ??MAGNESIUM?(mg/dL) ? 2.1 ASSESSMENT/PLAN: Metastatic clear-cell carcinoma Patient have a PET CT scan about a year earlier which showed metastatic disease and is also pathologically proved with the pancreatic biopsy showing renal cell cancer Will start patient on Keytruda and axitinib Will place port catheter Patient can be started on immunotherapy while awaiting for port and axitinib approval Patient advised to follow-up with the primary care closely for his blood pressure Dosing will be adjusted for dialysis days Advised to take axitinib after dialysis on dialysis days RTC in 4 weeks for evaluation Patient need imaging including PET CT scan and brain MRI to evaluate for extent of metastatic disease. Do not wait for imaging completion for starting therapy ORDERS: Order # Description [id number] Initial PET/CT of Skull to Mid-Thigh [id number] MRI + With W/O Contrast [id number] Comprehensive Metabolic Panel - 12 + CBC with Auto Diff [id number] Follow Up 4 Week [id number] Assay Triiodothyronine (T3) + Thyroid Stimulating Hormone [id number] CBC + Comprehensive Metabolic Panel [id number] Lab Appointment [id number] Follow Up Appointment [id number] CBC + Comprehensive Metabolic Panel [id number] Lab Appointment [id number] Follow Up Appointment [id number] CBC + Comprehensive Metabolic Panel [id number] Lab Appointment [id number] Follow Up Appointment [id number] CBC + Comprehensive Metabolic Panel [id number] Lab Appointment [id number] Follow Up Appointment [id number] CBC + Comprehensive Metabolic Panel [id number] Lab Appointment [id number] Follow Up Appointment [id number] CBC + Comprehensive Metabolic Panel [id number] Lab Appointment [id number] Follow Up Appointment [id number] CBC + Comprehensive Metabolic Panel [id number] Lab Appointment [id number] Follow Up Appointment [id number] CBC + Comprehensive Metabolic Panel [id number] Lab Appointment [id number] Follow Up Appointment [id number] CBC + Comprehensive Metabolic Panel [id number] Lab Appointment [id number] Follow Up Appointment [id number] CBC + Comprehensive Metabolic Panel [id number] Lab Appointment [id number] Follow Up Appointment [id number] CBC + Comprehensive Metabolic Panel [id number] Lab Appointment [id number] Follow Up Appointment [id number] CBC + Comprehensive Metabolic Panel [id number] Lab Appointment [id number] Follow Up Appointment RETURN TO CLINIC: I reviewed the diagnosis, prognosis, and recommended treatment/procedure options with the patient (and/or their legal public utilities sales representative), including the potential benefits, risks, side effects and alternative therapies. We also discussed the option of no treatment and the possibility of clinical trial participation, if applicable. All questions were addressed, and they demonstrated understanding. They provided informed consent to proceed with the proposed plan of care. BILLING AND COMPLIANCE: I reviewed external records from providers outside my specialty as summarized above. I spent a total of 50 minutes on this patient?s care on the day of their visit excluding time spent related to any billed procedures. This time includes time spent with the patient as well as time spent documenting in the medical record, reviewing patients records and tests, obtaining history, placing orders, communicating with other healthcare professionals, counseling the patient, family or caregiver, and/or care coordination for the diagnoses above. Electronically Signed by: Benny Lubin MD T: 12:33 PM CC: PCP: Zion Reddy Referring: Zion Reddy This document was completed utilizing speech recognition software. Grammatical errors, random word insertions, pronoun errors, and incomplete sentences are an occasional consequence of this system due to software limitations, ambient noise, and hardware issues. Any formal questions or concerns about the content, text or information contained within the body of this dictation should be directly addressed to the provider for clarification.
== END 2025-01-16 23:59 | disposition home or self-care (01) ==
LOC: SCTC 10:01
PROVIDERS: PCP Hospitalist; Referring Provider Hospitalist; Visit Provider Internal Medicine Hematology & Oncology
DX: C64.2 Malignant neoplasm of left kidney, except renal pelvis (principal)
CPT/HCPCS: 99213; G0463

== ENCOUNTER 2025-01-03 08:15 | Outpatient (CLI) | payer MEDICARE, MEDICAID, SELFPAY ==
[2025-01-02 11:37] LABS: Basophils # (Auto) 0.1 Thou/mm3 (0.0-0.2); Basophils % (Auto) 1 % (0-2.5); Eosinophils # (Auto) 1.8 Thou/mm3 (0.0-0.5); Eosinophils % (Auto) 23 % (0-10); Hematocrit 33.4 % (41.0-53.0); Hemoglobin 10.5 g/dL (13.5-16.0); Immature Granulocytes Auto 0.01 Thou/mm3 (0.00-0.00); Lymphocytes # (Auto) 1.3 Thou/mm3 (1.0-4.8); Lymphocytes % (Auto) 16 % (10-50); Mean Corpuscular HGB Conc 31.4 g/dl (31.0-37.0); Mean Corpuscular Hemoglobin 29.8 pg (25.0-35.0); Mean Corpuscular Volume 95 fL (80-100); Monocytes # (Auto) 0.5 Thou/mm3 (0.0-0.8); Monocytes % (Auto) 6 % (0-12); Neutrophils # (Auto) 4.1 Thou/mm3 (1.8-7.7); Neutrophils % (Auto) 54 % (37-80); Nucleated Red Blood Cell # 0.00 Thou/mm3 (0.00-0.00); Nucleated Red Blood Cell % 0 /100 WBC (0); Platelet Count 133 Thou/mm3 (140-440); RDW Standard Deviation 49.1 fL (35.1-43.9); Red Blood Count 3.52 Miln/mm3 (4.50-5.90); White Blood Count 7.7 Thou/mm3 (3.8-10.6)
[2025-01-02 11:43] LABS: Blood Urea Nitrogen 35 mg/dL (9-23); Creatinine (Component) 3.5 mg/dL (0.6-1.3); eGFR 20 See Note
[2025-01-02 11:52] LABS: INR 0.9 (0.9-1.3); Partial Thromboplastin Time 25.6 Seconds (22.0-36.0); Prothrombin Time 10.2 Seconds (9.0-12.2)
[2025-01-03] VITALS (13 sets, daily range): BP systolic 121–168; BP diastolic 61–73; PULSE 62–78; RESP 14–19; TEMP 36.9–37; O2SAT 94–100
--- NOTE | 2025-01-03 09:30 | XR_ITS ---
Examination: Attempted ultrasound-guided needle access right internal jugular vein, right subclavian vein, left internal jugular vein Fluoroscopy AP chest 2 views Date and time: January 04, 2020 5:10 AM INDICATIONS: Malignant neoplasm of the skin TECHNIQUE AND FINDINGS: Needle punctures resulted in significant bleeding and soft tissue hematomas IMPRESSION: Needle punctures for attempted Port-A-Cath result in significant bleeding and soft tissue hematomas in the right and left neck Recommend placement of this Port-A-Cath by a surgeon in the operating room
--- NOTE | 2025-01-03 10:07 | PC.NURSE ---
patient has allergies to Penicillin, for port procedure we do give cefazolin IV and on sterile field, i called pharmacy and they told me that there is a possible cross reaction and that it is up to the doctor if he wants to use cefazolin, i then talked to Dr Sevilla if he wanted cefazolin and he said no cefazolin IV or on the sterile field
[2025-01-03] MEDS: SODIUM CHLORIDE 0.9% 500 ML 500 ML 20 ML IV (10:25)
[2025-01-03] MEDS: LIDOCAINE INJ PF 1% 30 ML VIAL 11 ML EPID (11:02)
[2025-01-03] MEDS: fentaNYL CIT INJ 50 mCg/ML AMP 2ML 125 MCG IVP (11:02)
== END 2025-01-03 12:35 | disposition home or self-care (01) ==
PROVIDERS: Radiology Diagnostic Radiology; PCP Internal Medicine Hematology & Oncology; Referring Provider Internal Medicine Hematology & Oncology; Visit Provider Internal Medicine Hematology & Oncology
DX: C44.622 Squamous cell carcinoma of skin of right upper limb, including shoulder (principal); C64.2 Malignant neoplasm of left kidney, except renal pelvis; Z01.812 Encounter for preprocedural laboratory examination
CPT/HCPCS: 36558; 36415; 76937; 77001; 82565; 84520; 85025; 85610; 85730; A4649; C1769; C1788; C1894; J3010; J3490; J7050; J7999

== ENCOUNTER → 2025-01-30 | Outpatient (CLI) | payer MEDICARE, MEDICAID, SELFPAY ==
--- NOTE | 2025-01-30 13:15 | XR_ITS ---
EXAMINATION: PET/CT FUSION SKULL TO THIGH EXAM DATE AND TIME: January 30, 2025, 1345 hours, comparison CT chest abdomen pelvis October 04, 2024, CT chest abdomen pelvis May 29, 2024, PET/CT scan December 14, 2023 INDICATIONS: Diagnosis renal cell cancer, history hypermetabolic pulmonary nodules, bilateral pulmonary nodules on CT chest October 04, 2024, the largest in the right upper lobe 11 mm, 5.5 cm left renal mass on October 04, 2024 exam CTDI:vol (mGy) 5.19 DLP: (mGycm) 471.77 PROCEDURE: 16.5 mCi FDG was administered intravenously To allow for distribution and uptake of radiotracer, the patient was allowed to rest quietly in a shielded room. Imaging was performed on an integrated 16-slice PET/CT scanner, with scanning from the skull base to the mid thigh. . CT scanning was performed without oral or intravenous contrast material. FINDINGS: Head and Neck: There is no daxa hypermetabolism in the neck. The visualized portions of the brain are normal in appearance on CT. Chest: Again noted non-hypermetabolic right tracheobronchial precarinal lymphadenopathy stable compared with October 04, 2024 Stable non-hypermetabolic nodular parenchymal disease in the right upper lobe compared with October 04, 2024 No new pulmonary nodules Stable non-hypermetabolic posterior right pleural disease Abdomen and Pelvis: Stable hypermetabolic 5 cm anterior left renal mass Musculoskeletal: Marrow uptake is within normal range. IMPRESSION: Compared with CT chest abdomen pelvis October 04, 2024: Stable nodular parenchymal disease right upper lobe, no new pulmonary nodules Stable non-hypermetabolic mediastinal lymphadenopathy Stable non-hypermetabolic posterior right pleural disease Stable hypermetabolic 5 cm anterior left renal mass compared with PET/CT scan December 14, 2023
== END | disposition home or self-care (01) ==
PROVIDERS: PCP Family Medicine; Referring Provider Internal Medicine Hematology & Oncology; Visit Provider Internal Medicine Hematology & Oncology
DX: R91.8 Other nonspecific abnormal finding of lung field (principal); C44.622 Squamous cell carcinoma of skin of right upper limb, including shoulder; C64.2 Malignant neoplasm of left kidney, except renal pelvis
CPT/HCPCS: 78815; A9552

== ENCOUNTER 2025-02-12 08:01 | Outpatient (RCR) | payer MEDICARE, MEDICAID, SELFPAY ==
--- NOTE | 2025-01-24 14:18 | CTCFLWUP_ITS ---
Patient: ANJELICA GARZA : 1970 Page 4 of 5 FOLLOW UP NOTE DATE OF SERVICE: 01/24/2025 NAME: ANJELICA GARZA ACCOUNT: [id number] : 1970 AGE: 54 INTERVAL HISTORY: Patient is yet to start treatment . patient was not brought in by transport. Patient have little insight into disease and treatment . ONCOLOGY HISTORY: DIAGNOSIS: Squamous cell carcinoma of skin of right upper limb, including shoulder [ICD10] C44.622; Malignant neoplasm of left kidney, except renal pelvis [ICD10] C64.2 DATE OF DIAGNOSIS: 09/16/2022 11/28/2024 STAGE/TNM: 09/16/2022 Stage IV T2b N1 M1 TREATMENT HISTORY: Care?Plan Start?Date Cycle Day Intent Axitinib?and?Pembrolizumab 12/27/2024 1 21 Palliative HISTORY OF PRESENT ILLNESS: 54-year-old male is a patient who [facility]. Patient was diagnosed with a left kidney cancer after he was diagnosed with metastatic kidney cancer in 08/29/2022. Patient ultimately had biopsy of his kidney on the left side and was diagnosed with clear-cell cancer. Patient unfortunately was never started on treatment. Patient is now here to establish care OTHER MEDICAL HISTORY/CONDITIONS: Clear cell renal cell neoplasm - dx 06/28/24 Chronic kidney disease - on will;lysis Didabetes HTN CHF Cirrhosis liver Depression Squamous cell carcinoma skin BPH Cholecystectomy Left inguinal hernia repair Appendectomy Tonsillectomy FAMILY HISTORY: Cancer History:?Pat aunt - lung- 60's; Pat granfather-lung - dx 80's SOCIAL HISTORY: Occupational?History:?Disabled Education?Level:?Completed High School Marital?Status:?Single Tobacco Use:?Cont smoking-smoked x 17yrs - 1/2 PPD ETOH Use:?Drank 15yrs 12 pk/day - Quit 2008 Drug?Note:?Denies Social History Note:?Lives at [facility] MEDICATIONS: 1. Albuterol Sulfate HFA - 90 mcg/Actuation 2 Puff(s) Every 6 Hours 2. atorvastatin - 10 mg Every day before sleep 3. axitinib - 5 mg 1 tab Daily 4. Breo Ellipta - 200-25 mcg/dose 10 Puff(s) Daily 5. cranberry - 450 mg 1 tab Daily 6. gabapentin - 100 mg Twice a Day 7. HYDROcodone-acetaminophen - 10-325 mg 1 tab Every 4 Hours 8. Incruse Ellipta - 62.5 mcg/actuation 1 Puff(s) Daily 9. insulin aspart (niacinamide) - 100 unit/mL As directed 10. ipratropium-albuteroL - 0.5-2.5 mg/2.5 mL 1 dose Every 6 Hours 11. metoprolol tartrate - 25 mg 1 tab Twice a Day 12. midodrine - 10 mg Twice a Day 13. ondansetron - 4 mg 1 tab Every 6 Hours 14. Renal-Mackenzie - 0.8 mg 1 tab Daily 15. Renvela - 800 mg As directed 16. tamsulosin - 0.4 mg 1 Capsule Every day before sleep 17. Vitamin D - 5,000 unit 1 tab Daily Medications Last Reconciled by Carley Gresham MD on 01/24/2025 ALLERGIES: PENICILLAMINE REVIEW OF SYSTEMS: A complete 14-point review of systems was performed and is negative except as noted in interval history. PHYSICAL EXAMINATION: VITAL SIGNS: Temperature?98.9, B/P?134/65, Oxygen?Saturation?92% Weight?144?lbs (Change?since?12/27/24:?0?lbs) PAIN: 0 - No pain ECOG Performance Status: 0 - Asymptomatic and fully active GENERAL APPEARANCE: Appears well, in no apparent distress, appropriately interactive. HEENT: Normocephalic, no temporal wasting, normal conjunctiva, no scleral icterus, normal hearing, lips without lesions, neck normal range of motion. CARDIOVASCULAR: Not assessed. PULMONARY: Normal respiratory effort, no respiratory distress or use of accessory muscles, speaking in full sentences, no tachypnea. EXTREMITIES: No pedal edema or cyanosis. SKIN: Normal skin appearance. NEUROLOGIC: Alert and oriented x4. PSHYCHIATRIC: Appropriate affect, mood normal, behavior normal, intact thought and speech. LABORATORY DATA: I have personally reviewed and interpreted each of the patient?s relevant lab tests, abnormal findings are below: Date 09/08/24 01/02/25 ??WHITE?BLOOD?COUNT?(Thou/mm3) 5.9 7.7 ??RED?BLOOD?COUNT?(Miln/mm3) 3.33?L 3.52?L ??HEMOGLOBIN?(gm/dl) 10.0?L 10.5?L ??HEMATOCRIT?(%) 30.8?L 33.4?L ??PLATELET?COUNT?(Thou/mm3) 119?L 133?L ??NEUTROPHILS?%,?AUTO?(%) 72 54 ??LYMPH?%,?AUTO?(%) 15 16 ??NEUTROPHILS,?AUTO?(Thou/mm3) 4.2 4.1 ??BLOOD?UREA?NITROGEN?(mg/dL) ? 35?H ??CREATININE?(mg/dL) ? 3.50?H ASSESSMENT/PLAN: Metastatic clear-cell carcinoma Patient have a PET CT scan about a year earlier which showed metastatic disease and is also pathologically proved with the pancreatic biopsy showing renal cell cancer Will start patient on Keytruda and axitinib Patient could not get port and need general anesthesia Patient can be started on immunotherapy while awaiting for port and axitinib approval Patient advised to follow-up with the primary care closely for his blood pressure Dosing will be adjusted for dialysis days Advised to take axitinib after dialysis on dialysis days RTC in 4 weeks for evaluation Pet scan shows only mildly hypermetabolic nodules in the lungs and a left kidney tumor Real rest send to urology for possible left radical nephrectomy Patient is already on dialysis and tolerated nephrectomy is known to prolong survival and renal cell cancer Patient do not have clinical visible disease on the scans and I will prefer nephrectomy. Jose testing RETURN TO CLINIC: I reviewed the diagnosis, prognosis, and recommended treatment/procedure options with the patient (and/or their legal service center representative), including the potential benefits, risks, side effects and alternative therapies. We also discussed the option of no treatment and the possibility of clinical trial participation, if applicable. All questions were addressed, and they demonstrated understanding. They provided informed consent to proceed with the proposed plan of care. BILLING AND COMPLIANCE: I reviewed external records from providers outside my specialty as summarized above. I spent a total of 50 minutes on this patient?s care on the day of their visit excluding time spent related to any billed procedures. This time includes time spent with the patient as well as time spent documenting in the medical record, reviewing patients records and tests, obtaining history, placing orders, communicating with other healthcare professionals, counseling the patient, family or caregiver, and/or care coordination for the diagnoses above. Electronically Signed by: Benny Lubin MD T: 2:16 PM CC: PCP: Benny Lubin Referring: Benny Lubin This document was completed utilizing speech recognition software. Grammatical errors, random word insertions, pronoun errors, and incomplete sentences are an occasional consequence of this system due to software limitations, ambient noise, and hardware issues. Any formal questions or concerns about the content, text or information contained within the body of this dictation should be directly addressed to the provider for clarification.
[2025-02-12 09:10] LABS: Basophils # (Auto) 0.0 Thou/mm3 (0.0-0.2); Basophils % (Auto) 0 % (0-2.5); Eosinophils # (Auto) 2.6 Thou/mm3 (0.0-0.5); Eosinophils % (Auto) 37 % (0-10); Hematocrit 28.8 % (41.0-53.0); Hemoglobin 9.1 g/dL (13.5-16.0); Immature Granulocytes Auto 0.01 Thou/mm3 (0.00-0.00); Lymphocytes # (Auto) 1.0 Thou/mm3 (1.0-4.8); Lymphocytes % (Auto) 14 % (10-50); Mean Corpuscular HGB Conc 31.6 g/dl (31.0-37.0); Mean Corpuscular Hemoglobin 31.1 pg (25.0-35.0); Mean Corpuscular Volume 98 fL (80-100); Monocytes # (Auto) 0.4 Thou/mm3 (0.0-0.8); Monocytes % (Auto) 5 % (0-12); Neutrophils # (Auto) 2.9 Thou/mm3 (1.8-7.7); Neutrophils % (Auto) 42 % (37-80); Nucleated Red Blood Cell # 0.00 Thou/mm3 (0.00-0.00); Nucleated Red Blood Cell % 0 /100 WBC (0); Platelet Count 139 Thou/mm3 (140-440); RDW Standard Deviation 56.7 fL (35.1-43.9); Red Blood Count 2.93 Miln/mm3 (4.50-5.90); White Blood Count 6.9 Thou/mm3 (3.8-10.6)
[2025-02-12 09:25] LABS: Alanine Aminotransferase 22 U/L (10-49); Albumin, Serum 3.9 gm/dL (3.5-5.0); Albumin/Globulin Ratio 1.4 (1.2-2.2); Alkaline Phosphatase 84 U/L (46-116); Anion Gap 9 (7-16); Aspartate Amino Transferase 25 U/L (0-34); BUN/Creatinine Ratio 8 Ratio (12-20); Bilirubin,Total 0.3 mg/dL (0.3-1.2); Blood Urea Nitrogen 30 mg/dL (9-23); Calcium 8.6 mg/dL (8.3-10.6); Calcium (Corrected) 8.7 mg/dL (8.5-10.1); Carbon Dioxide 28.4 mMol/L (20.0-31.0); Chloride 101 mMol/L (98-107); Creatinine (Component) 4.0 mg/dL (0.6-1.3); Free T4 (Free Thyroxine) 0.94 ng/dL (0.89-1.76); Globulin 2.7 gm/dL (2.3-3.5); Glucose 255 mg/dL (74-106); Osmolality,Calculated 290 (275-295); Potassium 4.3 mMol/L (3.4-5.1); Sodium 138 mMol/L (136-145); Thyroid Stimulating Hormone 2.73 uIU/mL (0.55-4.78); Total Protein 6.6 gm/dL (5.7-8.2); eGFR 17 See Note
[2025-02-13 04:12] LABS: Path Review Blood Smear Sent to Pathologist
== END 2025-02-16 23:59 | disposition home or self-care (01) ==
LOC: SCTC 08:01
PROVIDERS: PCP Hospitalist; Referring Provider Internal Medicine Hematology & Oncology; Visit Provider Internal Medicine Hematology & Oncology
DX: Z51.12 Encounter for antineoplastic immunotherapy (principal); C64.2 Malignant neoplasm of left kidney, except renal pelvis; C44.622 Squamous cell carcinoma of skin of right upper limb, including shoulder; R91.8 Other nonspecific abnormal finding of lung field
CPT/HCPCS: 80053; 84439; 84443; 85025; 96413; 99212; J3490; J9271; G0463

== ENCOUNTER → 2025-03-07 | Outpatient (CLI) | payer MEDICARE, MEDICAID, SELFPAY ==
--- NOTE | 2025-03-07 14:00 | XR_ITS ---
Examination: MRI of brain without intravenous contrast. MRI brain with intravenous contrast. Date and time of exam: March 07, 2025, 1400 hours, comparison June 22, 2005 INDICATIONS: Diagnosis squamous cell carcinoma of the skin, diagnosis malignant neoplasm of left kidney except renal pelvis, diagnosis major depressive disorder, recurrent end-stage renal disease, staging Technique: Multiple axial and sagittal images of the brain to been obtained. Siemens high-resolution 1.52 Selena short bore scanner utilized. Sagittal sections, T1 weighted images, TR 500, TE 14, are performed. Axial sections proton-density and T2-weighted images have been obtained. Inversion recovery axial images, TR 9260, TE 111, TR 2500. Diffusion weighted images, axial sections, TR 4800, TE 128, B value 1000. Axial sections, ADC map, TR 4800, TE 128. Axial and coronal images were also obtained post 14 cc gadolinium administered intravenously. Findings:: Enlargement of the sella turcica is not present. The optic chiasm and infundibular stalk are not remarkable. There is no localized enlargement of the medulla or alanis. Fourth ventricle and cerebellar tonsils appear normal in position. No subacute area of hemorrhage density is seen. Fourth ventricle is midline. Mass in the cerebellopontine angle region is not evident. 7th and 8th nerve complexes exhibit symmetry Globes are symmetrical Orbital musculature including medial lateral rectus muscles do not exhibit abnormality Increased white matter signal is moderate Effacement of the cortical sulcal markings is not identified. Mass effect upon the ventricular system is not identified. Diffusion-weighted images demonstrate no focus of restricted diffusion Contrast images demonstrate no abnormal enhancement Impression: Negative for acute hemorrhage, mass effect or midline shift No acute infarct Moderate chronic microvascular white matter change No abnormal enhancing cerebellar or cerebral lesions
== END | disposition home or self-care (01) ==
PROVIDERS: Referring Provider Internal Medicine Hematology & Oncology; Visit Provider Internal Medicine Hematology & Oncology
DX: R90.82 White matter disease, unspecified (principal); C44.622 Squamous cell carcinoma of skin of right upper limb, including shoulder; C64.2 Malignant neoplasm of left kidney, except renal pelvis
CPT/HCPCS: 70553; A9577

== ENCOUNTER 2025-04-16 13:25 | Outpatient (RCR) | payer MEDICARE, MEDICAID, SELFPAY ==
[2025-03-26 13:45] LABS: Basophils # (Auto) 0.0 Thou/mm3 (0.0-0.2); Basophils % (Auto) 1 % (0-2.5); Eosinophils # (Auto) 0.9 Thou/mm3 (0.0-0.5); Eosinophils % (Auto) 13 % (0-10); Hematocrit 31.9 % (41.0-53.0); Hemoglobin 9.8 g/dL (13.5-16.0); Immature Granulocytes Auto 0.02 Thou/mm3 (0.00-0.00); Lymphocytes # (Auto) 0.8 Thou/mm3 (1.0-4.8); Lymphocytes % (Auto) 12 % (10-50); Mean Corpuscular HGB Conc 30.7 g/dl (31.0-37.0); Mean Corpuscular Hemoglobin 32.1 pg (25.0-35.0); Mean Corpuscular Volume 105 fL (80-100); Monocytes # (Auto) 0.5 Thou/mm3 (0.0-0.8); Monocytes % (Auto) 8 % (0-12); Neutrophils # (Auto) 4.5 Thou/mm3 (1.8-7.7); Neutrophils % (Auto) 66 % (37-80); Nucleated Red Blood Cell # 0.00 Thou/mm3 (0.00-0.00); Nucleated Red Blood Cell % 0 /100 WBC (0); Platelet Count 140 Thou/mm3 (140-440); RDW Standard Deviation 53.5 fL (35.1-43.9); Red Blood Count 3.05 Miln/mm3 (4.50-5.90); White Blood Count 6.8 Thou/mm3 (3.8-10.6)
[2025-03-26 14:03] LABS: Alanine Aminotransferase < 7 U/L (10-49); Albumin, Serum 3.8 gm/dL (3.5-5.0); Albumin/Globulin Ratio 1.2 (1.2-2.2); Alkaline Phosphatase 97 U/L (46-116); Anion Gap 10 (7-16); Aspartate Amino Transferase 11 U/L (0-34); BUN/Creatinine Ratio 7 Ratio (12-20); Bilirubin,Total 0.2 mg/dL (0.3-1.2); Blood Urea Nitrogen 24 mg/dL (9-23); Calcium 8.5 mg/dL (8.3-10.6); Calcium (Corrected) 8.7 mg/dL (8.5-10.1); Carbon Dioxide 29.3 mMol/L (20.0-31.0); Chloride 98 mMol/L (98-107); Creatinine (Component) 3.6 mg/dL (0.6-1.3); Free T4 (Free Thyroxine) 0.96 ng/dL (0.89-1.76); Globulin 3.1 gm/dL (2.3-3.5); Glucose 177 mg/dL (74-106); Osmolality,Calculated 281 (275-295); Potassium 4.5 mMol/L (3.4-5.1); Sodium 137 mMol/L (136-145); Thyroid Stimulating Hormone 2.95 uIU/mL (0.55-4.78); Total Protein 6.9 gm/dL (5.7-8.2); eGFR 19 See Note
[2025-03-26 17:21] LABS: Free T3 2.9 pg/mL (2.3-4.2)
[2025-04-16 14:11] LABS: Basophils # (Auto) 0.0 Thou/mm3 (0.0-0.2); Basophils % (Auto) 1 % (0-2.5); Eosinophils # (Auto) 2.4 Thou/mm3 (0.0-0.5); Eosinophils % (Auto) 34 % (0-10); Hematocrit 33.9 % (41.0-53.0); Hemoglobin 10.4 g/dL (13.5-16.0); Immature Granulocytes Auto 0.01 Thou/mm3 (0.00-0.00); Lymphocytes # (Auto) 1.0 Thou/mm3 (1.0-4.8); Lymphocytes % (Auto) 13 % (10-50); Mean Corpuscular HGB Conc 30.7 g/dl (31.0-37.0); Mean Corpuscular Hemoglobin 31.0 pg (25.0-35.0); Mean Corpuscular Volume 101 fL (80-100); Monocytes # (Auto) 0.4 Thou/mm3 (0.0-0.8); Monocytes % (Auto) 6 % (0-12); Neutrophils # (Auto) 3.3 Thou/mm3 (1.8-7.7); Neutrophils % (Auto) 46 % (37-80); Nucleated Red Blood Cell # 0.00 Thou/mm3 (0.00-0.00); Nucleated Red Blood Cell % 0 /100 WBC (0); Platelet Count 141 Thou/mm3 (140-440); RDW Standard Deviation 51.2 fL (35.1-43.9); Red Blood Count 3.35 Miln/mm3 (4.50-5.90); White Blood Count 7.1 Thou/mm3 (3.8-10.6)
[2025-04-16 14:51] LABS: Alanine Aminotransferase 10 U/L (10-49); Albumin, Serum 4.0 gm/dL (3.5-5.0); Albumin/Globulin Ratio 1.3 (1.2-2.2); Alkaline Phosphatase 103 U/L (46-116); Anion Gap 9 (7-16); Aspartate Amino Transferase 18 U/L (0-34); BUN/Creatinine Ratio 6 Ratio (12-20); Bilirubin,Total 0.3 mg/dL (0.3-1.2); Blood Urea Nitrogen 18 mg/dL (9-23); Calcium 8.5 mg/dL (8.3-10.6); Calcium (Corrected) 8.5 mg/dL (8.5-10.1); Carbon Dioxide 32.8 mMol/L (20.0-31.0); Chloride 99 mMol/L (98-107); Creatinine (Component) 3.1 mg/dL (0.6-1.3); Free T4 (Free Thyroxine) 0.98 ng/dL (0.89-1.76); Globulin 3.1 gm/dL (2.3-3.5); Glucose 222 mg/dL (74-106); Osmolality,Calculated 290 (275-295); Potassium 3.6 mMol/L (3.4-5.1); Sodium 141 mMol/L (136-145); Thyroid Stimulating Hormone 4.40 uIU/mL (0.55-4.78); Total Protein 7.1 gm/dL (5.7-8.2); eGFR 23 See Note
--- NOTE | 2025-04-22 13:57 | CTCFLWUP_ITS ---
Patient: ANJELICA GARZA : 1970 Page 3 of 3 FOLLOW UP NOTE DATE OF SERVICE: 03/28/2025 NAME: ANJELICA GARZA ACCOUNT: [id number] : 1970 AGE: 54 INTERVAL HISTORY: Patient received his first treatment in January2025 and the did well. Patient started taking fiber from GI on 01/04/2025. ONCOLOGY HISTORY:?[facility] Hx? DIAGNOSIS: Squamous cell carcinoma of skin of right upper limb, including shoulder [ICD10] C44.622; Malignant neoplasm of left kidney, except renal pelvis [ICD10] C64.2 DATE OF DIAGNOSIS: 09/16/2022 11/28/2024 STAGE/TNM: 09/16/2022 Stage IV T2b N1 M1 TREATMENT HISTORY: Care?Plan Start?Date Cycle Day Intent Axitinib?and?Pembrolizumab 02/12/2025 1 21 Palliative HISTORY OF PRESENT ILLNESS: 54-year-old male is [facility]. Patient was diagnosed with a left kidney cancer after he was diagnosed with metastatic kidney cancer in 08/29/2022. Patient ultimately had biopsy of his kidney on the left side and was diagnosed with clear-cell cancer. Patient unfortunately was never started on treatment. Patient is now here to establish care OTHER MEDICAL HISTORY/CONDITIONS: Clear cell renal cell neoplasm - dx 06/28/24 Chronic kidney disease - on will;lysis Didabetes HTN CHF Cirrhosis liver Depression Squamous cell carcinoma skin BPH Cholecystectomy Left inguinal hernia repair Appendectomy Tonsillectomy FAMILY HISTORY: Cancer History:?Pat aunt - lung- 60's; Pat granfather-lung - dx 80's SOCIAL HISTORY: Occupational?History:?Disabled Education?Level:?Completed High School Marital?Status:?Single Tobacco Use:?Cont smoking-smoked x 17yrs - 1/2 PPD ETOH Use:?Drank 15yrs 12 pk/day - Quit 2008 Drug?Note:?Denies Social History Note:?Lives at [facility] MEDICATIONS: 1. Albuterol Sulfate HFA - 90 mcg/Actuation 2 Puff(s) Every 6 Hours 2. atorvastatin - 10 mg Every day before sleep 3. axitinib - 5 mg 1 tab Daily 4. Breo Ellipta - 200-25 mcg/dose 10 Puff(s) Daily 5. cranberry - 450 mg 1 tab Daily 6. gabapentin - 100 mg Twice a Day 7. HYDROcodone-acetaminophen - 10-325 mg 1 tab Every 4 Hours 8. Incruse Ellipta - 62.5 mcg/actuation 1 Puff(s) Daily 9. insulin aspart (niacinamide) - 100 unit/mL As directed 10. ipratropium-albuteroL - 0.5-2.5 mg/2.5 mL 1 dose Every 6 Hours 11. losartan - 50 mg 1 tab Daily 12. metoprolol tartrate - 25 mg 1 tab Twice a Day 13. midodrine - 10 mg Twice a Day 14. ondansetron - 4 mg 1 tab Every 6 Hours 15. Renal-Mackenzie - 0.8 mg 1 tab Daily 16. Renvela - 800 mg As directed 17. tamsulosin - 0.4 mg 1 Capsule Every day before sleep 18. Vitamin D - 5,000 unit 1 tab Daily?Palabra Meds? Medications Last Reconciled by Carley Gresham MD on 03/28/2025 (Reconcile on Approval: ?) ALLERGIES: PENICILLAMINE REVIEW OF SYSTEMS: A complete 14-point review of systems was performed and is negative except as noted in interval history. PHYSICAL EXAMINATION:?CloneBlock PE? VITAL SIGNS: PAIN: 1 - Between no and mild pain ECOG Performance Status: 0 - Asymptomatic and fully active GENERAL APPEARANCE: Appears well, in no apparent distress, appropriately interactive. HEENT: Normocephalic, no temporal wasting, normal conjunctiva, no scleral icterus, normal hearing, lips without lesions, neck normal range of motion. CARDIOVASCULAR: Not assessed. PULMONARY: Normal respiratory effort, no respiratory distress or use of accessory muscles, speaking in full sentences, no tachypnea. EXTREMITIES: No pedal edema or cyanosis. SKIN: Normal skin appearance. NEUROLOGIC: Alert and oriented x4. PSHYCHIATRIC: Appropriate affect, mood normal, behavior normal, intact thought and speech. LABORATORY DATA: I have personally reviewed and interpreted each of the patient?s relevant lab tests, abnormal findings are below: Date 03/26/25 04/16/25 ??WHITE?BLOOD?COUNT?(Thou/mm3) 6.8 7.1 ??RED?BLOOD?COUNT?(Miln/mm3) 3.05?L 3.35?L ??HEMOGLOBIN?(gm/dl) 9.8?L 10.4?L ??HEMATOCRIT?(%) 31.9?L 33.9?L ??PLATELET?COUNT?(Thou/mm3) 140 141 ??NEUTROPHILS?%,?AUTO?(%) 66 46 ??LYMPH?%,?AUTO?(%) 12 13 ??NEUTROPHILS,?AUTO?(Thou/mm3) 4.5 3.3 ??GLUCOSE,RANDOM?(mg/dL) 177?H 222?H ??BLOOD?UREA?NITROGEN?(mg/dL) 24?H 18 ??CREATININE?(mg/dL) 3.60?H 3.10?H ??SODIUM?(mmol/L) 137 141 ??POTASSIUM?(mmol/L) 4.5 3.6 ??CHLORIDE?(mmol/L) 98 99 ??CrCl?(CandG)?(ml/min) 23.23 26.70 ??AST/SGOT?(Unit/L) 11 18 ??ALT/SGPT?(Unit/L) <?7?L 10 ??ALKALINE?PHOSPHATASE?(Unit/L) 97 103 ??BILIRUBIN,?TOTAL?(mg/dL) 0.2?L 0.3 ??PROTEIN?TOTAL?(gm/dl) 6.9 7.1 ??ALBUMIN,?SERUM?(gm/dl) 3.8 4.0 ??GLOBULIN?(gm/dl) 3.1 3.1 ??ALBUMIN/GLOBULIN?RATIO 1.2 1.3 ??CALCIUM,?SERUM?(mg/dL) 8.5 8.5 ??CALCIUM?SERUM?(CORRECTED)?(mg/dL) 8.7 8.5 ASSESSMENT/PLAN:?Santiago Lubin Assessment/Plan? Metastatic clear-cell carcinoma Patient have a PET CT scan about a year earlier which showed metastatic disease and is also pathologically proved with the pancreatic biopsy showing renal cell cancer Discussed taking axitinib 5 mg TWICE daily with immunotherapy patient advised to follow-up with the primary care closely for his blood pressure Advised to take axitinib after dialysis on dialysis days RTC in 4 weeks for evaluation Pet scan shows only mildly hypermetabolic nodules in the lungs and a left kidney tumor Real rest send to urology for possible left radical nephrectomy Patient is already on dialysis and tolerated nephrectomy is known to prolong survival and renal cell cancer Patient do not have clinical visible disease on the scans and I will prefer nephrectomy. Naterra testing was ordered Continue current therapy with the pembrolizumab and axitinib 5 mg twice daily. Patient's doses increased to 5 mg twice daily is tolerating once daily dose very well. New prescription sent ORDERS: Order # Description [id number] CBC + Comprehensive Metabolic Panel [id number] Lab Appointment [id number] Follow Up Appointment [id number] CBC + Comprehensive Metabolic Panel [id number] Lab Appointment [id number] Follow Up Appointment [id number] CBC + Comprehensive Metabolic Panel [id number] Lab Appointment [id number] Follow Up Appointment [id number] CBC + Comprehensive Metabolic Panel [id number] Lab Appointment [id number] Follow Up Appointment [id number] CBC + Comprehensive Metabolic Panel [id number] Lab Appointment [id number] Follow Up Appointment [id number] CBC + Comprehensive Metabolic Panel [id number] Lab Appointment [id number] Follow Up Appointment [id number] CBC + Comprehensive Metabolic Panel [id number] Lab Appointment [id number] Follow Up Appointment [id number] CBC + Comprehensive Metabolic Panel [id number] Lab Appointment [id number] Follow Up Appointment [id number] CBC + Comprehensive Metabolic Panel [id number] Lab Appointment [id number] Follow Up Appointment RETURN TO CLINIC: I reviewed the diagnosis, prognosis, and recommended treatment/procedure options with the patient (and/or their legal sales representative public utilities), including the potential benefits, risks, side effects and alternative therapies. We also discussed the option of no treatment and the possibility of clinical trial participation, if applicable. All questions were addressed, and they demonstrated understanding. They provided informed consent to proceed with the proposed plan of care. BILLING AND COMPLIANCE: I reviewed external records from providers outside my specialty as summarized above. I spent a total of 50 minutes on this patient?s care on the day of their visit excluding time spent related to any billed procedures. This time includes time spent with the patient as well as time spent documenting in the medical record, reviewing patients records and tests, obtaining history, placing orders, communicating with other healthcare professionals, counseling the patient, family or caregiver, and/or care coordination for the diagnoses above. Electronically Signed by: Benny Lubin MD T: 1:55 PM CC: PCP: Bear Mendieta Referring: Bear Mendieta This document was completed utilizing speech recognition software. Grammatical errors, random word insertions, pronoun errors, and incomplete sentences are an occasional consequence of this system due to software limitations, ambient noise, and hardware issues. Any formal questions or concerns about the content, text or information contained within the body of this dictation should be directly addressed to the provider for clarification.
== END 2025-04-18 23:59 | disposition home or self-care (01) ==
LOC: SCTC 13:25
PROVIDERS: PCP Family Medicine; Referring Provider Family Medicine; Visit Provider Internal Medicine Hematology & Oncology
DX: Z51.11 Encounter for antineoplastic chemotherapy (principal); C64.2 Malignant neoplasm of left kidney, except renal pelvis; C78.89 Secondary malignant neoplasm of other digestive organs; I13.2 Hypertensive heart and chronic kidney disease with heart failure and with stage 5 chronic kidney disease, or end stage renal disease; E11.22 Type 2 diabetes mellitus with diabetic chronic kidney disease; N18.6 End stage renal disease; I50.9 Heart failure, unspecified; Z99.2 Dependence on renal dialysis; Z79.4 Long term (current) use of insulin; R91.8 Other nonspecific abnormal finding of lung field
CPT/HCPCS: 80053; 84439; 84443; 84481; 85025; 96413; 99212; J3490; J7040; J9271; G0463